=== PATIENT | female | born 1950 | race Caucasian/White ===

== ENCOUNTER 2021-03-03 11:00 | Outpatient (RCR) | payer MEDICARE ==
[~2021-03-03 11:00] MED LIST: ASP325TEC; ASP81TEC PO; ATN25T PO; CIME200T39 PO; CIPR500T78 PO; FAMO20TA13; LISI1TAB8 PO; LISINOPRIL; LISINOPRIL/HCTZ; LORA10TA7 PO; LRT10T; METF-380 PO; METO10TA3 PO; MTC5T; MTF500T PO; NAPR250T34; NTR.4SL; OMEG1CAP51 PO; OXB5T; OXB5T PO; PROAIR; RANI150C11 PO; SOLI5TAB4 PO; TRAM50TA2 PO; TRM50T; [UNRECOGNIZED DRUG - OTHER]; [UNRECOGNIZED DRUG - OTHER]
--- NOTE | 2021-04-10 12:13 | 30 Day Event Recorder ---
30-DAY EVENT RECORDER 30-DAY MOBILE CARDIAC OUTPATIENT TELEMETRY DATE OF PROCEDURE: 03/03/2021-04/02/2021. INDICATION: Paroxysmal atrial fibrillation. PROCEDURE: A 30-day mobile cardiac outpatient telemetry was obtained for a total of 24 days and 14 hours. 44 rhythm strips were presented for review. The study quality is adequate. RESULTS: 1. Baseline sinus rhythm with an average heart rate of 68 bpm, ranging from 50- 160 bpm with intermittent atrial fibrillation with a longest single duration of 1 hour and a total burden of less than 1%. 2. There were occasional, isolated premature supraventricular complexes representing 2% of the total recording time one 8 beat run of paroxysmal atrial tachycardia. 3. There were occasional, isolated premature ventricular complexes representing 3% of the total recording time. 4. There were no pauses exceeding 2 seconds in duration. 5. There were 2 patient triggered events that correlated to sinus rhythm both at a heart rate of 78 bpm with no arrhythmias. IMPRESSION: 1. This is a 30-day mobile cardiac outpatient telemetry that was obtained for total of 24 days and 14 hours. 2. Baseline sinus rhythm with an average heart rate of 68 bpm, ranging from 50- 160 bpm with intermittent atrial fibrillation with the longest single duration of 1 hour and a total burden of less than 1%. 3. There were occasional, isolated premature supraventricular and premature ventricular complexes as well as one 8 beat run of paroxysmal atrial tachycardia. 4. There were 2 patient triggered events that correlated to sinus rhythm both at a heart rate of 78 bpm with no arrhythmias. Certain portions of this document may have been dictated utilizing voice recognition technology. Inherent to this technology, typographical and grammatical errors may exist. As much as I am diligent to identify and correct these mistakes, some errors may remain in the document. RADHA MEJIA JR, MD Apr 10, 2021 12:13
== END 2021-04-28 | disposition home or self-care (01) ==
LOC: CARD 11:00
PROVIDERS: ATTEND Internal Medicine Cardiovascular Disease
DX: I48.0 Paroxysmal atrial fibrillation (principal)

== ENCOUNTER → 2021-04-11 | Outpatient (CLI) | payer MEDICARE ==
--- NOTE | 2021-04-11 13:02 | Diagnostic Imaging Report ---
Indication: Cough PA and lateral chest Heart size and pulmonary vascularity are normal. Lungs are clear. There are no effusions or pneumothoraces. IMPRESSION: Negative chest Dictated by: Dictated on workstation # [id number]
== END ==
LOC: RAD 11:48
PROVIDERS: ATTEND Internal Medicine Cardiovascular Disease
DX: R05.9 Cough, unspecified (principal)
CPT/HCPCS: 71046

== ENCOUNTER → 2021-06-01 | Outpatient (CLI) | payer MEDICARE ==
[~2021-06-01] MED LIST changes: +REGADENOSON 0.4 MG/5 ML SYR (LEXISCAN) IV ONE
[2021-06-01] MEDS: CATHETER FLUSH 10 ML SYR IV PRN ×2 (08:40→09:39)
[2021-06-01 09:35] VITALS: BP 152/68
--- NOTE | 2021-06-01 12:29 | NUCLEAR STRESS TEST ---
REGADENOSON NUCLEAR STRESS Date of procedure: 06/01/2021. Primary care provider: Melissa Berger DO Admitting physician: Charlie Oakley Jr., MD. INDICATION: Paroxysmal atrial fibrillation. BASELINE ELECTROCARDIOGRAM: Sinus rhythm with low voltage in the precordial leads. STRESS TEST PROCEDURE: The patient was administered 0.4 mg of intravenous Reg adenoson. The resting heart rate was 64 bpm and the peak heart rate was 104 bpm. The resting blood pressure was 156/73 mmHg and the minimum blood pressure was 113/70 mmHg. This represents a normal heart rate and a normal blood pressure response to Regadenoson. The test was stopped due to the protocol. There was no chest discomfort during the test. There were no arrhythmias during the test. There were no significant stress induced electrocardiogram changes. NUCLEAR PROCEDURE: The patient was administered 10.9 mCi of intravenous technetium 99m Tetrofosmin at rest for the rest images. The patient was subsequently administered 32.8 mCi of intravenous technetium 99m Tetrofosmin at peak stress for the stress images. Following an appropriate wait after each injection, imaging was obtained. The images were subsequently processed and reformatted in the usual views. Gated imaging was obtained. The image quality was adequate with a mild degree of gastrointestinal and breast attenuation artifact. CT attenuation correction was used as a adjunct to standard imaging. Both the corrected and uncorrected images were reviewed for interpretation. NUCLEAR RESULTS: There was a moderate sized, moderate intensity, predominantly reversible mid to distal anterior and apical defect with a moderate amount of inducible ischemia. There was normal left ventricular chamber size with an end- diastolic volume of 56 mL and an end-systolic volume of 19 mL. There was no evidence of transient ischemic dilatation. The TID ratio was 1. There was normal wall motion in all segments with a calculated ejection fraction of 66%. IMPRESSION: 1. Normal heart rate and blood pressure response to regadenoson. 2. There was no chest discomfort, arrhythmias, or electrocardiogram changes during the test. 3. There was a moderate sized, moderate intensity, predominantly reversible mid to distal anterior and apical defect with a moderate amount of inducible ischemia. 4. There was normal wall motion in all segments with a calculated ejection fraction of 66%. 5. This is an abnormal result indicating moderate risk for possible future coronary ischemic events. Certain portions of this document may have been dictated utilizing voice recognition technology. Inherent to this technology, typographical and gram matical errors may exist. As much as I am diligent to identify and correct these mistakes, some errors may remain in the document. CHARLIE OAKLEY JR, MD Jun 01, 2021 12:29
== END ==
LOC: CARD 08:30
PROVIDERS: ATTEND Internal Medicine Cardiovascular Disease
DX: I48.0 Paroxysmal atrial fibrillation (principal)
CPT/HCPCS: 78452; 93017; A9502

== ENCOUNTER 2021-06-12 14:07 | Inpatient (IN) | payer MEDICARE ==
[~2021-06-12] VITALS: Ht 162.2 cm; Wt 82.2 kg
[~2021-06-12 14:07] MED LIST changes: -REGADENOSON 0.4 MG/5 ML SYR (LEXISCAN) IV ONE
[2021-06-12] MEDS ORDERED: LACTATED RINGERS 1,000 ML IV ONE (14:30)
[2021-06-12] MEDS ORDERED: IOHEXOL 350 MG/ML 100 ML (OMNIPAQUE 350) VIAL IV ONE (14:45)
[2021-06-12] MEDS ORDERED: HOLD METFORMIN - RECEIVED CONTRAST 20 ML VIAL IV SCH (14:45)
[2021-06-12] MEDS ORDERED: NS 100 ML (IVPB) BAG IV ONE (14:45)
[2021-06-12 14:51] LABS: BILIRUBIN,URINE NEGATIVE (NEGATIVE); CLARITY,URINE CLEAR; COLOR,URINE YELLOW; GLUCOSE, URINE (UA) NEGATIVE (NEGATIVE); KETONES,URINE NEGATIVE (NEGATIVE); LEUKOCYTE ESTERASE ,URINE TRACE (NEGATIVE); NITRITE,URINE POSITIVE (NEGATIVE); PROTEIN,URINE 1+ (NEGATIVE)
[2021-06-12 15:10] LABS: MEAN CORPUSCULAR HGB CONC 32 g/dL (32-36)
[2021-06-12 15:12] LABS: BASOPHILS % (AUTO) 0 % (0-10); EOSINOPHILS % (AUTO) 0 % (0-10); HEMATOCRIT 40 % (35-52); HEMOGLOBIN 12.7 g/dL (11.5-16.0); LYMPHOCYTES # (AUTO) 1.3 10^3/uL (1.0-4.0); LYMPHOCYTES % (AUTO) 23 % (12-44); MEAN CORPUSCULAR HEMOGLOBIN 29 pg (25-34); MEAN CORPUSCULAR VOLUME 93 fL (80-99); MEAN PLATELET VOLUME 11.2 fL (9.0-12.2); MONOCYTES # (AUTO) 0.4 10^3/uL (0.0-1.0); MONOCYTES % (AUTO) 8 % (0-12); NEUTROPHILS # (AUTO) 3.8 10^3/uL (1.8-7.8); NEUTROPHILS % (AUTO) 69 % (42-75); PLATELET COUNT 110 10^3/uL (130-400); WHITE BLOOD COUNT 5.6 10^3/uL (4.3-11.0)
[2021-06-12 15:16] LABS: ALBUMIN 3.6 GM/DL (3.2-4.5); CHLORIDE 103 MMOL/L (98-107); POTASSIUM 4.1 MMOL/L (3.6-5.0); SODIUM 139 MMOL/L (135-145)
[2021-06-12 15:17] LABS: CALCIUM 9.1 MG/DL (8.5-10.1)
[2021-06-12 15:19] LABS: GLUCOSE 119 MG/DL (70-105); INR 0.9 (0.8-1.4); PROTHROMBIN TIME PATIENT 12.9 SEC (12.2-14.7); TOTAL PROTEIN 6.5 GM/DL (6.4-8.2)
[2021-06-12 15:20] LABS: CARBON DIOXIDE 23 MMOL/L (21-32)
[2021-06-12 15:21] LABS: BILIRUBIN,TOTAL 0.3 MG/DL (0.1-1.0)
[2021-06-12 15:22] LABS: ALKALINE PHOSPHATASE 47 U/L (40-136); BACTERIA,URINE LARGE /HPF; CREATININE SERUM 0.76 MG/DL (0.60-1.30); GFR ESTIMATED 83
[2021-06-12 15:23] LABS: BUN/CREATININE RATIO 22
[2021-06-12 15:25] LABS: ALANINE AMINOTRANSFERASE 30 U/L (0-55); MAGNESIUM 1.6 MG/DL (1.6-2.4)
[2021-06-12 15:26] LABS: CREATINE KINASE 36 U/L (29-168)
--- NOTE | 2021-06-12 15:32 | Diagnostic Imaging Report ---
INDICATION: Altered mental status. Shortness of air. COMPARISON: 04/11/2021. FINDINGS: Single frontal view of the chest demonstrates normal heart size and pulmonary vascularity. The lungs are well aerated and clear. No large pleural effusion or pneumothorax is seen. The visualized osseous structures show no acute abnormalities. IMPRESSION: 1. No acute cardiopulmonary process. Dictated by: Dictated on workstation # [id number]
[2021-06-12] MEDS ORDERED: cefTRIAXone 1 GM PRE-MIX 50 ML IV STA (15:34)
--- NOTE | 2021-06-12 15:34 | Diagnostic Imaging Report ---
INDICATION: Pelvic pain. FINDINGS: AP view of the pelvis shows no fracture or dislocation. IMPRESSION: Negative pelvis. Dictated by: Dictated on workstation # [id number]
--- NOTE | 2021-06-12 15:34 | ED General ---
General Chief Complaint: General Problems/Pain Stated Complaint: FALL Source of Information: EMS Exam Limitations: Other (PT IS NOT TALKING) History of Present Illness Date Seen by Provider: Jun 12, 2021 Time Seen by Provider: 14:20 Initial Comments PT ARRIVES VIA EMS FROM HOME--PT LIVES ALONE DAUGHTER CALLED EMS PT FELL 1 WEEK AGO AND WAS SEEN AT [facility] AND DX WITH CONCUSSION--HAS LARGE HEMATOMA TO FOREHEAD AND BILATERAL PERIORBITAL BRUISING FROM THAT INJURY PT IS ON XARELTO. DAUGHTER HAS REPORTED THAT PT HAS NOT BEEN EATING OR TALKING SINCE THEN, AND IS GETTING WORSE PT HAS BEEN WALKING WITH A WALKER, BUT THAT HER ABILITY TO AMBULATE IS GETTING MUCH WORSE SINCE SHE FELL LAST WEEK PT HAS NOT FOLLOWED UP WITH ANYONE SINCE THEN. EMS REPORT THAT HOME IS IN DEPLORABLE CONDITION, WITH MULTIPLE HOLES IN THE FLOORS THROUGHOUT THE HOUSE AND MULTIPLE HOLES IN THE [place]. PT IS NOT TALKING OR FOLLOWING COMMANDS ON ARRIVAL, PT IS ONLY MOANING WITH ANY MOVEMENT PT IS DNR/DNI PER DAUGHTER PT HAS HISTORY OF TIA'S, UTI'S, SEIZURES, PARKINSON'S, DIABETES, HTN, PAROXYSMAL ATRIAL FIBRILLATION, LIKELY DEMENTIA PT HAD NUCLEAR STRESS TEST 06/01/21--EF 66%, WITH INDUCIBLE ISCHEMIA PCP: JULITA Allergies and Home Medications Allergies Coded Allergies: codeine (Verified Allergy, Unknown, 08/06/06) iodine (Verified Allergy, Unknown, 08/22/07) meloxicam (Verified Allergy, Unknown, 08/22/07) Patient Home Medication List Home Medication List Reviewed: Yes Amlodipine Besylate (Amlodipine Besylate) 10 Mg Tablet, 10 MG PO DAILY, (Reported) Entered as Reported by: WARREN ROJAS on 06/13/211522 Last Action: Held Atenolol (Atenolol) 50 Mg Tablet, 50 MG PO BID, (Reported) Entered as Reported by: Zoraida Castaneda on 06/13/21 110 Last Action: Held Atorvastatin Calcium (Atorvastatin Calcium) 20 Mg Tablet, 20 MG PO HS, (Reported) Entered as Reported by: Zoraida Castaneda on 06/13/21 1105 Last Action: Held Calcium Carbonate (Calcium) 500 Mg Tablet, 1,500 MG PO HS, (Reported) Entered as Reported by: WARREN ROJAS on 06/13/211522 Last Action: Converted Cholecalciferol (Vitamin D3) (Vitamin D3) 25 Mcg Tablet, 25 MCG PO DAILY, (Reported) Entered as Reported by: WARREN ROJAS on 06/13/211522 Last Action: Continued Cranberry Extract (Cranberry) 250 Mg Capsule, 500 MG PO DAILY, (Reported) Entered as Reported by: WARREN ROJAS on 06/13/211522 Last Action: Converted Cyanocobalamin (Vitamin B-12) (Vitamin B-12) 1,000 Mcg Tablet, 1,000 MCG PO DAILY, (Reported) Entered as Reported by: WARREN ROJAS on 06/13/211522 Last Action: Continued Divalproex Sodium (Divalproex Sodium) 250 Mg Tablet.dr, 250 MG PO BID, (Reported ) Entered as Reported by: WARREN ROJAS on 06/13/211522 Last Action: Continued Folic Acid (Folic Acid) 1 Mg Tablet, 1 MG PO DAILY, (Reported) Entered as Reported by: WARREN ROJAS on 06/13/211522 Last Action: Continued Furosemide (Furosemide) 40 Mg Tablet, 40 MG PO DAILY, (Reported) Entered as Reported by: WARREN ROJAS on 06/13/211522 Last Action: Continued Hydralazine HCl (Hydralazine HCl) 50 Mg Tablet, 50 MG PO BID, (Reported) Entered as Reported by: WARREN ROJAS on 06/13/211522 Last Action: Held Levocetirizine Dihydrochloride (Levocetirizine Dihydrochloride) 5 Mg Tablet, 5 MG PO HS, (Reported) Entered as Reported by: WARREN ROJAS on 06/13/211522 Last Action: Continued Losartan Potassium (Losartan Potassium) 100 Mg Tablet, 100 MG PO DAILY, (Reported) Entered as Reported by: Zoraida Castaneda on 06/13/21 1100 Last Action: Continued Metformin HCl (Metformin HCl) 1,000 Mg Tablet, 1,000 MG PO BID WITH MEALS, (Re ported) Entered as Reported by: WARREN ROJAS on 06/13/211522 Last Action: Held Oxybutynin Chloride (Oxybutynin Chloride) 5 Mg Tablet, 5 MG PO BID, (Reported) Entered as Reported by: Zoraida Castaneda on 06/13/21 1108 Last Action: Continued Pantoprazole Sodium (Pantoprazole Sodium) 40 Mg Tablet.dr, 40 MG PO DAILY, (Reported) Entered as Reported by: WARREN ROJAS on 06/13/211522 Last Action: Continued Rivaroxaban (Xarelto) 20 Mg Tablet, 20 MG PO 1700, (Reported) Entered as Reported by: WARREN ROJAS on 06/13/211522 Last Action: Held Review of Systems Review of Systems Constitutional: other (UNABLE TO OBTAIN) Past Sphovsz-Wkmocr-Efixft Hx Past Medical History Surgeries: Yes Appendectomy, Gallbladder, Hysterectomy, Oophorectomy, Tonsillectomy Respiratory: No Cardiac: Yes Atrial Fibrillation, Hypertension Neurological: Yes (POOR MEMORY) Dementia, Seizure Disorder, TIA Reproductive Disorders: No SHOE DRESSER History: Hysterectomy, Menopausal Genitourinary: Yes (CHRONIC RENAL INSUFFICIENCY) Bladder Infection, Kidney Stones Gastrointestinal: Yes Gastroesophageal Reflux Musculoskeletal: Yes (POOR AMBULATION--USES WALKER) Arthritis Endocrine: Yes Diabetes, Non-Insulin dep HEENT: Yes Cataract Cancer: No Psychosocial: No Integumentary: No Blood Disorders: No Adverse Reaction/Blood Tranf: No Family Medical History Heart disease Kidney disease Physical Exam Vital Signs Capillary Refill : Height, Weight, BMI Height: 5'4.00" Weight: 151lbs. oz. 68.438086iy; BMI Method: General Appearance: Other (PT MOANS WITH ANY MOVEMENT, EYES OPEN SPONTANEOUSLY, BUT DOES NOT MAKE EYE CONTACT AND PT IS NOT TALKING OR FOLLOWING COMMANDS, UNABLE TO LOCALIZE PAIN. ) HEENT: PERRL/EOMI, TMs Normal, Other (LARGE HEMATOMA TO FOREHEAD AND BILATERAL PERIOROBITAL ECCHYMOSIS--APPEARS TO BE SEVERAL DAYS OLD, CONSISTENT WITH REPORTED HISTORY OF FALL 1 WEEK AGO. NO EVIDENCE OF MORE RECENT TRAUMA. ) Neck: Normal Inspection Respiratory: Normal Breath Sounds, No Accessory Muscle Use, No Respiratory Distress Cardiovascular: Regular Rate, Rhythm, No JVD, Systolic Murmur (2/6) Gastrointestinal: Soft Extremity: No Pedal Edema, Other (NO OBVIOUS EXTERNAL EVIDENCE OF TRAUMA. ) Neurologic/Psychiatric: Other (MENTATION NOTED ABOVE. DOES APPEAR TO MOVE ALL EXTREMITIES, BUT IS NOT TALKING OR FOLLOWING ANY COMMANDS, OR MAKING ANY EYE CONTACT,) Skin: Normal Color, Warm/Dry, Ecchymosis ( NOTED ABOVE. ) Progress/Results/Core Measures Suspected Sepsis SIRS Temperature: Pulse: Respiratory Rate: Blood Pressure / Mean: Laboratory Tests 06/12/21 14:30: INR Comment 0.9 Results/Orders Lab Results Laboratory Tests Test 06/12/21 14:30 06/12/21 14:39 06/12/21 16:05 06/12/21 16:14 Range/Units White Blood Count 5.6 4.3-11.0 10^3/uL Red Blood Count 4.32 3.80-5.11 10^6/uL Hemoglobin 12.7 11.5-16.0 g/dL Hematocrit 40 35-52 % Mean Corpuscular Volume 93 80-99 fL Mean Corpuscular Hemoglobin 29 25-34 pg Mean Corpuscular Hemoglobin Concent 32 32-36 g/dL Red Cell Distribution Width 14.2 10.0-14.5 % Platelet Count 110 L 130-400 10^3/uL Mean Platelet Volume 11.2 9.0-12.2 fL Immature Granulocyte % (Auto) 1 % Neutrophils (%) (Auto) 69 42-75 % Lymphocytes (%) (Auto) 23 12-44 % Monocytes (%) (Auto) 8 0-12 % Eosinophils (%) (Auto) 0 0-10 % Basophils (%) (Auto) 0 0-10 % Neutrophils # (Auto) 3.8 1.8-7.8 10^3/uL Lymphocytes # (Auto) 1.3 1.0-4.0 10^3/uL Monocytes # (Auto) 0.4 0.0-1.0 10^3/uL Eosinophils # (Auto) 0.0 0.0-0.3 10^3/uL Basophils # (Auto) 0.0 0.0-0.1 10^3/uL Immature Granulocyte # (Auto) 0.0 0.0-0.1 10^3/uL Percent Immature Platelet Fraction 3.4 0.0-7.6 % Erythrocyte Sedimentation Rate 15 0-30 MM/HR Prothrombin Time 12.9 12.2-14.7 SEC INR Comment 0.9 0.8-1.4 Activated Partial Thromboplast Time 29 24-35 SEC Urine Color YELLOW Urine Clarity CLEAR Urine pH 6.0 5-9 Urine Specific [place] 1.015 L 1.016-1.022 Urine Protein 1+ H NEGATIVE Urine Glucose (UA) NEGATIVE NEGATIVE Urine Ketones NEGATIVE NEGATIVE Urine Nitrite POSITIVE H NEGATIVE Urine Bilirubin NEGATIVE NEGATIVE Urine Urobilinogen 0.2 < = 1.0 MG/DL Urine Leukocyte Esterase TRACE H NEGATIVE Urine RBC (Auto) NEGATIVE NEGATIVE Urine RBC NONE /HPF Urine WBC 2-5 /HPF Urine Crystals NONE /LPF Urine Bacteria LARGE H /HPF Urine Casts NONE /LPF Urine Mucus NEGATIVE /LPF Urine Culture Indicated YES Sodium Level 139 135-145 MMOL/L Potassium Level 4.1 3.6-5.0 MMOL/L Chloride Level 103 98-107 MMOL/L Carbon Dioxide Level 23 21-32 MMOL/L Anion Gap 13 5-14 MMOL/L Blood Urea Nitrogen 17 7-18 MG/DL Creatinine 0.76 0.60-1.30 MG/DL Estimat Glomerular Filtration Rate 83 BUN/Creatinine Ratio 22 Glucose Level 119 H 70-105 MG/DL Calcium Level 9.1 8.5-10.1 MG/DL Corrected Calcium 9.4 8.5-10.1 MG/DL Magnesium Level 1.6 1.6-2.4 MG/DL Total Bilirubin 0.3 0.1-1.0 MG/DL Aspartate Amino Transf (AST/SGOT) 26 5-34 U/L Alanine Aminotransferase (ALT/SGPT) 30 0-55 U/L Alkaline Phosphatase 47 40-136 U/L Total Creatine Kinase 36 29-168 U/L Creatine Kinase MB 0.5 <6.6 NG/ML Myoglobin 47.2 10.0-92.0 NG/ML Troponin I < 0.028 <0.028 NG/ML C-Reactive Protein High Sensitivity 0.99 H 0.00-0.50 MG/DL Total Protein 6.5 6.4-8.2 GM/DL Albumin 3.6 3.2-4.5 GM/DL Procalcitonin 0.03 <0.10 NG/ML TSH [place] Testing 1.70 0.35-4.94 UIU/ML Influenza Type A (RT-PCR) Not Detected Not Detecte Influenza Type B (RT-PCR) Not Detected Not Detecte SARS-CoV-2 RNA (RT-PCR) Detected H Not Detecte B-Type Natriuretic Peptide 111.1 H <100.0 PG/ML Blood Gas Puncture Site RR Blood Gas Patient Temperature 37 Arterial Blood pH 7.43 7.37-7.43 Arterial Blood Partial Pressure CO2 41 35-45 MMHG Arterial Blood Partial Pressure O2 114 H 79-93 MMHG Arterial Blood HCO3 27 23-27 MMOL/L Arterial Blood Total CO2 28.4 21.0-31.0 MMOL/L Arterial Blood Oxygen Saturation 99 94-100 % Arterial Blood Base Excess 3.1 H -2.5-2.5 MMOL/L Tc Test YES-POS Blood Gas Ventilator Setting NO Blood Gas Inspired Oxygen 2 Test 06/12/21 16:28 Range/Units Lab Scanned Report Referred Lab Report [id number] Micro Results Microbiology 06/12/21 Blood Culture - Final, Complete No growth 06/12/21 Urine Culture - Final, Complete Escherichia coli Klebsiella pneumoniae Lactobacillus species My Orders Orders - DORINA ANDRADE DO Ed Iv/Invasive Line Start (06/12/21 14:23) Catheter(Urinary) Insert & Ass 03,15 (06/12/21 14:23) O2 (06/12/21 14:23) Monitor-Rhythm Ecg Trace Only (06/12/21 14:) Arterial Blood Gas (06/12/21 14:) Bnp Betty (06/12/21 14:) Cbc With Automated Diff (06/12/21 14:) Comprehensive Metabolic Panel (06/12/21 14:23) Creatine Kinase (06/12/21 14:) Creatine Kinase Mb (06/12/21 14:23) Hs C Reactive Protein (06/12/21 14:) Magnesium (06/12/21 14:23) Protime With Inr (06/12/21:23) Partial Thromboplastin Time (06/12/21 14:) Thyroid Analyzer (06/12/21 14:) Ua Culture If Indicated (06/12/21:) Erythrocyte Sedimentation Rate (06/12/21 14:23) Myoglobin Serum (06/12/21 14:23) Troponin I Betty (06/12/21 14:23) Ct Head/Face/Cervical Wo (06/12/21 14:23) Chest 1 View, Ap/Pa Only (06/12/21 14:) Pelvis (06/12/21 14:23) Ed Iv/Invasive Line Start (06/12/21 14:23) Lactated Ringers (Lr 1000 Ml Iv Solution (06/12/21 14:30) Procalcitonin (Pct) (06/12/21 14:23) Covid 19 Inhouse Test (06/12/21 14:23) Influenza A And B By Pcr (06/12/21 14:23) Isolation Central Supply Req (06/12/21 14:23) Ct Thoracic/Lumbar Spine Wo (06/12/21 14:28) Iohexol Injection (Omnipaque 350 Mg/Ml 1 (06/12/21 14:45) Received Contrast (Hold Metformin- Contr (06/12/21 14:45) Ns (Ivpb) (Sodium Chloride 0.9% Ivpb Bag (06/12/21 14:45) Ct Chest/Abdomen/Pelvis Wo (06/12/21 14:28) Urine Culture (06/12/21 14:30) Ceftriaxone 1 Gm Pre-Mix (Rocephin 1 Gm (06/12/21 15:34) Ed Admission (Communication) (06/12/21 16:26) Vital Signs/I&O Capillary Refill : Progress Note : Progress Note O2 SAT 92% ON ROOM AIR ON ARRIVAL, UP TO 985 ON 2L/NC NO DETERIORATION IN PT'S CONDITION DURING ER STAY Diagnostic Imaging Comments CXR---PER RADIOLOGIST REPORT AT 1535 FINDINGS: Single frontal view of the chest demonstrates normal heart size and pulmonary vascularity. The lungs are well aerated and clear. No large pleural effusion or pneumothorax is seen. The visualized osseous structures show no acute abnormalities. IMPRESSION: 1. No acute cardiopulmonary process. PELVIS XRAY--PER RADIOLOGIST REPORT AT 1535 FINDINGS: AP view of the pelvis shows no fracture or dislocation. IMPRESSION: Negative pelvis. CT HEAD/MAXILLOFACIALS/CERVICAL SPINE--PER RADIOLOGIST REPORT AT 1558 AND DISCUSSED WITH RADIOLOGIST AT 1602 CT HEAD: The ventricles and cortical sulci are diffusely prominent, consistent with generalized parenchymal volume loss. There is no midline shift or mass effect. No acute intracranial hemorrhage is seen. There is no CT evidence of acute territorial ischemia. There is fluid in the mastoid air cells bilaterally. There is a left frontal scalp hematoma which measures 2 cm wide. There is also a small contusion at the left posterior scalp with a 2.5 cm hematoma as well. No calvarium fracture is seen. CT FACE: There is motion artifact resulting in suboptimal evaluation. The pterygoid plates are intact. The zygomatic arches are intact. The mandible appears intact. No fracture is seen about the maxillary sinuses or in the orbit. The globes appear intact. No postseptal edema is seen. There is mild mucosal thickening in the ethmoid and maxillary sinuses. There is a small fluid level in the sphenoid sinuses. There is a small amount of fluid in the bilateral mastoid air cells. There is marked leftward septal deviation. CT CERVICAL SPINE: There is grade 1 anterolisthesis at C4-C5. There is severe degenerative change at C5-C6 and C6-C7. Vertebral body heights are preserved. There is marked facet arthropathy bilaterally, particularly on the right, with fusion of the right C2 through C4 facets. No fracture is seen. No bony fragments or hyperdense fluid collections are seen in the spinal canal. There are areas of spinal canal and foraminal stenosis. There is some spinal canal stenosis at C5-C6 and C6-C7. IMPRESSION: 1. Scalp contusions with no calvarium fracture seen. No acute intracranial hemorrhage is seen. 2. Mild mucosal thickening and fluid levels in the paranasal sinuses with no fracture identified in the face. 3. Advanced degenerative changes in the cervical spine with no fracture seen. CT THORACIC/LUMBAR SPINE--PER RADIOLOGIST REPORT FINDINGS: THORACIC SPINE: No acute fracture is seen in the thoracic spine. Alignment is normal with no spondylolisthesis. There are moderate multilevel degenerative changes. Vertebral body heights are preserved. No bony fragments or hyperdense fluid collections are seen in the spinal canal. Surrounding soft tissues are unremarkable. There is a large mass in the left adrenal gland, which is partially calcified. Please refer to the concurrent CT of the abdomen. LUMBAR SPINE: There is grade 1 anterolisthesis at L4-L5. There are moderate degenerative changes at L1-L2 and L2-L3. Vertebral body heights are preserved. No acute fracture is seen. There is marked facet arthropathy at the lower lumbar spine. No bony fragments or hyperdense fluid collections are seen in the spinal canal. Surrounding soft tissues demonstrate no acute abnormality. IMPRESSION: 1. Degenerative changes in the thoracic and lumbar spine with no acute osseous abnormality seen. 2. Left adrenal gland mass, please refer to concurrent CT of the abdomen. CT CHEST/ABDOMEN/PELVIS--PER RADIOLOGIST REPORT FINDINGS: CHEST: Sternum, manubrium, and diaphragm are intact. No rib fracture deformity. No pneumothorax or hemothorax. There is a small sub-solid nodule of 7 mm in the right upper lobe. Some peripheral ground-glass infiltrates in the infrahilar right lower lobe as well as in the lingula and left lower lobes. Correlate for atypical infectious etiology including viral pathogens. There is no pleural or pericardial hemorrhage. There is no pneumothorax. No findings of chest wall hematoma. No lymphadenopathy. The aorta nonaneurysmal. ABDOMEN AND PELVIS: There is no abdominopelvic free fluid. There were no findings of a hemoperitoneum. No free air. No focal mesenteric or bowel wall hematoma. There are degenerative changes to the pelvis and hips as well as lumbar spine, but no fracture or acute osseous injury found. The unopacified liver, spleen, and pancreas are unremarkable. There is a large mass in the left adrenal measuring 3.8 x 3.9 cm with extensive punctate and peripheral calcifications. This is unrelated to acute trauma but is indeterminate, benign versus malignant. The right adrenal is negative, and there is no abdominopelvic mesenteric or retroperitoneal lymphadenopathy. Urinary bladder is catheterized and appeared nonacute. No bowel, biliary, or urinary tract obstruction. No lymphadenopathy. No ascites. No retroperitoneal hemorrhage. IMPRESSION: 1. No acute or post-traumatic abnormality in the chest, abdomen, or pelvis found. 2. Chest shows scattered pulmonary ground-glass and nodular infiltrates, presumed infectious disease. No demonstrated chest fracture, hemothorax, or pneumothorax. 3. The abdomen and pelvis showed no evidence for hemorrhage, viscus perforation, or obstruction. Large left adrenal mass, circumscribed, with extensive chronic appearing calcifications is of uncertain etiology; correlate for endocrinopathy. If no prior remote studies are available to confirm its long-term stability, tissue sampling for metabolic PET/CT may be of benefit for further evaluation. Reviewed: Reviewed by Me, Discussed w/Radiologist Departure Communication (Admissions) 1609/162--SPOKE WITH DR. JONES, ACCEPTS PT FOR ADMIT. SHE WILL DO ADMIT ORDERS. Impression Primary Impression: Status post fall Additional Impressions: COVID-19 virus infection Urinary tract infection Altered mental status Recent head injury XARELTO THERAPY HISTORY OF INTERMITTENT ATRIAL FIBRILLATION HTN (hypertension) Dementia POOR LIVING CONDITIONS Diabetes mellitus Disposition: ADMITTED INPATIENT Condition: Stable Admissions Decision to Admit Reason: Admit from ER (General) Decision to Admit/Date: Jun 12, 2021 Time/Decision to Admit Time: 16:20 Departure-Patient Inst. Referrals: ELIO SMITH DO (PCP/Family) Primary Care Physician DORINA ANDRADE DO Jun 12, 2021 15:34
[2021-06-12 15:39] LABS: CREATINE KINASE MB 0.5 NG/ML (<6.6)
[2021-06-12 15:42] LABS: ERYTHROCYTE SEDIMENTATION RATE 15 MM/HR (0-30)
--- NOTE | 2021-06-12 15:42 | Diagnostic Imaging Report ---
PROCEDURE: CT chest, abdomen, and pelvis without contrast. TECHNIQUE: Multiple contiguous axial images were obtained through the chest, abdomen, and pelvis without the use of intravenous contrast. Auto Exposure Controls were utilized during the CT exam to meet ALARA standards for radiation dose reduction. INDICATION: Fall with pain. COMPARISON: No relevant comparison. FINDINGS: CHEST: Sternum, manubrium, and diaphragm are intact. No rib fracture deformity. No pneumothorax or hemothorax. There is a small sub-solid nodule of 7 mm in the right upper lobe. Some peripheral ground-glass infiltrates in the infrahilar right lower lobe as well as in the lingula and left lower lobes. Correlate for atypical infectious etiology including viral pathogens. There is no pleural or pericardial hemorrhage. There is no pneumothorax. No findings of chest wall hematoma. No lymphadenopathy. The aorta nonaneurysmal. ABDOMEN AND PELVIS: There is no abdominopelvic free fluid. There were no findings of a hemoperitoneum. No free air. No focal mesenteric or bowel wall hematoma. There are degenerative changes to the pelvis and hips as well as lumbar spine, but no fracture or acute osseous injury found. The unopacified liver, spleen, and pancreas are unremarkable. There is a large mass in the left adrenal measuring 3.8 x 3.9 cm with extensive punctate and peripheral calcifications. This is unrelated to acute trauma but is indeterminate, benign versus malignant. The right adrenal is negative, and there is no abdominopelvic mesenteric or retroperitoneal lymphadenopathy. Urinary bladder is catheterized and appeared nonacute. No bowel, biliary, or urinary tract obstruction. No lymphadenopathy. No ascites. No retroperitoneal hemorrhage. IMPRESSION: 1. No acute or post-traumatic abnormality in the chest, abdomen, or pelvis found. 2. Chest shows scattered pulmonary ground-glass and nodular infiltrates, presumed infectious disease. No demonstrated chest fracture, hemothorax, or pneumothorax. 3. The abdomen and pelvis showed no evidence for hemorrhage, viscus perforation, or obstruction. Large left adrenal mass, circumscribed, with extensive chronic appearing calcifications is of uncertain etiology; correlate for endocrinopathy. If no prior remote studies are available to confirm its long-term stability, tissue sampling for metabolic PET/CT may be of benefit for further evaluation. Dictated by: Dictated on workstation # [id number]
--- NOTE | 2021-06-12 15:56 | Diagnostic Imaging Report ---
PROCEDURE: CT head, face, and cervical spine without contrast. TECHNIQUE: Multiple contiguous axial images were obtained through the head, neck, and facial bones without the use of intravenous contrast. Sagittal and coronal reformations through the cervical spine and facial bones were also performed. Auto Exposure Controls were utilized during the CT exam to meet ALARA standards for radiation dose reduction. INDICATION: Fall. Head, face and neck pain. Trauma. COMPARISON: CT head from 07/06/2013. FINDINGS: CT HEAD: The ventricles and cortical sulci are diffusely prominent, consistent with generalized parenchymal volume loss. There is no midline shift or mass effect. No acute intracranial hemorrhage is seen. There is no CT evidence of acute territorial ischemia. There is fluid in the mastoid air cells bilaterally. There is a left frontal scalp hematoma which measures 2 cm wide. There is also a small contusion at the left posterior scalp with a 2.5 cm hematoma as well. No calvarium fracture is seen. CT FACE: There is motion artifact resulting in suboptimal evaluation. The pterygoid plates are intact. The zygomatic arches are intact. The mandible appears intact. No fracture is seen about the maxillary sinuses or in the orbit. The globes appear intact. No postseptal edema is seen. There is mild mucosal thickening in the ethmoid and maxillary sinuses. There is a small fluid level in the sphenoid sinuses. There is a small amount of fluid in the bilateral mastoid air cells. There is marked leftward septal deviation. CT CERVICAL SPINE: There is grade 1 anterolisthesis at C4-C5. There is severe degenerative change at C5-C6 and C6-C7. Vertebral body heights are preserved. There is marked facet arthropathy bilaterally, particularly on the right, with fusion of the right C2 through C4 facets. No fracture is seen. No bony fragments or hyperdense fluid collections are seen in the spinal canal. There are areas of spinal canal and foraminal stenosis. There is some spinal canal stenosis at C5-C6 and C6-C7. IMPRESSION: 1. Scalp contusions with no calvarium fracture seen. No acute intracranial hemorrhage is seen. 2. Mild mucosal thickening and fluid levels in the paranasal sinuses with no fracture identified in the face. 3. Advanced degenerative changes in the cervical spine with no fracture seen. Dictated by: Dictated on workstation # [id number]
--- NOTE | 2021-06-12 16:00 | Diagnostic Imaging Report ---
PROCEDURE: CT thoracic and lumbar spine without contrast. TECHNIQUE: Multiple contiguous axial images were obtained through the thoracic and lumbar spine without the use of intravenous contrast. Sagittal and coronal reformations were then performed. All CT scans use one or more of the following dose optimizing techniques: Automated exposure control, MA and/or KvP adjustment based on a patient size and exam type, or iterative reconstruction. INDICATION: Fall, pain in the back. COMPARISON: None. FINDINGS: THORACIC SPINE: No acute fracture is seen in the thoracic spine. Alignment is normal with no spondylolisthesis. There are moderate multilevel degenerative changes. Vertebral body heights are preserved. No bony fragments or hyperdense fluid collections are seen in the spinal canal. Surrounding soft tissues are unremarkable. There is a large mass in the left adrenal gland, which is partially calcified. Please refer to the concurrent CT of the abdomen. LUMBAR SPINE: There is grade 1 anterolisthesis at L4-L5. There are moderate degenerative changes at L1-L2 and L2-L3. Vertebral body heights are preserved. No acute fracture is seen. There is marked facet arthropathy at the lower lumbar spine. No bony fragments or hyperdense fluid collections are seen in the spinal canal. Surrounding soft tissues demonstrate no acute abnormality. IMPRESSION: 1. Degenerative changes in the thoracic and lumbar spine with no acute osseous abnormality seen. 2. Left adrenal gland mass, please refer to concurrent CT of the abdomen. Dictated by: Dictated on workstation # [id number]
[2021-06-12 16:57] LABS: ABG BASE EXCESS 3.1 MMOL/L (-2.5-2.5); ABG OXYGEN SATURATION 99 % (94-100); ABG PCO2 41 MMHG (35-45); ABG PH 7.43 (7.37-7.43); ABG PO2 114 MMHG (79-93); ABG TCO2 28.4 MMOL/L (21.0-31.0)
[2021-06-12 16:58] LABS: ALLENS TEST YES-POS; INSPIRED O2 2; PATIENT TEMP 37; VENTILATOR NO
[2021-06-12 19:00] VITALS: BP 160/72
[2021-06-12] MEDS ORDERED: ONDANSETRON 4 MG (ZOFRAN) ORAL DISSOLVE TAB PO PRN (19:15)
[2021-06-12] MEDS ORDERED: MILK OF MAGNESIA 400 MG/5 ML 30 ML UDC PO PRN (19:15)
[2021-06-12] MEDS ORDERED: BISACODYL 10 MG SUPP (DULCOLAX) PR PRN (19:15)
[2021-06-12] MEDS ORDERED: ANTACID SUSP 30 ML UDC (MYLANTA) PO PRN (19:15)
[2021-06-12] MEDS ORDERED: MELATONIN 3 MG TABLET PO PRN (19:15)
[2021-06-12] MEDS ORDERED: ONDANSETRON 4 MG/2 ML (SDV) Z0FRAN IV PRN (19:15)
[2021-06-12] MEDS ORDERED: diphenhydrAMINE 25 MG TAB (BENADRYL) PO PRN (19:15)
[2021-06-12] MEDS ORDERED: diphenhydrAMINE 50 MG/ML INJ (BENADRYL) IVP PRN (19:15)
[2021-06-12] MEDS ORDERED: CALCIUM CARBONATE 500 MG (TUMS) TAB.CHEW PO PRN (19:15)
[2021-06-12] MEDS ORDERED: morphine INJ 4 MG/ML 1 ML (VIAL/SYRINGE) IV PRN (19:15)
[2021-06-12] MEDS ORDERED: PATIENT MAY USE OWN MEDS, ALL PO SCH (19:15)
[2021-06-12] MEDS ORDERED: polyethylene glycoL POWDER 17 GM (MIRALAX) PACK PO PRN (19:15)
[2021-06-12] MEDS ORDERED: LACTULOSE SYRUP 10GM/15ML (ENULOSE) 30ML UDC PO PRN (19:15)
[2021-06-12] MEDS: NS IV 1000 ML 1,000 ML IV SCH (22:14)
[2021-06-12] MEDS: inSUlin ASPART (NovoLOG) 1 UNIT/0.01 ML (CHARGE PER UNIT) SC SCH (22:18)
[2021-06-12 22:23] VITALS: BP 160/72
[2021-06-12] MEDS: DOCUSATE SODIUM 100 MG (COLACE) CAP PO SCH (22:33)
[2021-06-12] MEDS: SENNOSIDES 8.6 MG (SENOKOT) TAB PO SCH (22:33)
[2021-06-12 23:09] VITALS: BP 170/68
[2021-06-13 04:31] VITALS: BP 199/83
[2021-06-13] MEDS ORDERED: cloNIDine 0.1 MG (CATAPRES) TAB PO PRN (04:45)
[2021-06-13] MEDS: inSUlin ASPART (NovoLOG) 1 UNIT/0.01 ML (CHARGE PER UNIT) SC SCH ×4 (05:31→22:11)
[2021-06-13] MEDS: hydrALAZINE (APRESOLINE) 25 MG TAB PO SCH ×4 (05:32→19:57)
[2021-06-13] MEDS: lisINopril 20 MG (PRINIVIL) TABLET PO SCH ×2 (05:32→08:33)
[2021-06-13] MEDS: amLODIPine 5 MG (NORVASC) TAB PO SCH ×2 (05:32→08:32)
[2021-06-13] MEDS: NS IV 1000 ML 1,000 ML IV SCH ×2 (05:33→18:00)
--- NOTE | 2021-06-13 06:40 | History & Physical-Hospitalist ---
History of Present Illness HPI/Chief Complaint CC: Altered mental status HPI: 71 yr old [facility] clinic pt of [facility] and Dr. Oakley cardiology who presents to the ER with altered mental status and unable to really even verbalize. She was diagnosed with Covid-19 pneumonia, placed on appropriate medication, and Dr. Oakley will see her in consultation. She does have a significant murmur. She is very lethargic and doesn't open her eyes during my exam. Source: RN/MD, EMS notes reviewed, old records Exam Limitations: clinical condition Date Seen 06/13/21 Time Seen by a Provider: 10:00 Attending Physician Elmira Montiel DO PCP Melissa Berger DO Referring Physician Date of Admission Jun 12, 2021 at 16:28 Home Medications & Allergies Home Medications Reviewed patient Home Medication Reconciliation performed by pharmacy medication reconciliations avionics test technician and/or nursing. Patients Allergies have been reviewed. Allergies Allergies Coded Allergies codeine (Verified Allergy, Unknown, 08/06/06) iodine (Verified Allergy, Unknown, 08/22/07) meloxicam (Verified Allergy, Unknown, 08/22/07) Past Cxvlwwl-Ijqfrk-Yhqobu Hx Patient Social History Marrital Status: single Employed/Student: retired Tobacco Use?: No Smoking Status: Unknown if Ever Smoked Substance use?: No Alcohol Use?: No Pt feels they are or have been: Unable to obtain Current Status Advance Directives: No Communicates: Does Not Communicate Primary Language: Cymraes Preferred Spoken Language: Cymraes Is interpretation needed?: Unable to obtain Implanted or Applied Medical D: None Past Medical History High Cholesterol, Hypertension, Valvular Heart Disease Dementia, Neuropathy Kidney Stones Gastroesophageal Reflux Arthritis Diabetes, Non-Insulin dep Cataract Adverse Reaction/Blood Tranf: No Family Medical History Heart disease Kidney disease Review of Systems ROS-Unable to Obtain: Lethargic Constitutional: see HPI, malaise, weakness Physical Exam Physical Exam Vital Signs Vital Signs - First Documented 06/12/21 14:17 Temp 37.5 Pulse 84 Resp 15 B/P (MAP) 174/79 (110) Pulse Ox 98 O2 Delivery Nasal Cannula O2 Flow Rate 2.00 Capillary Refill : Height, Weight, BMI Height: 5'4.00" Weight: 151lbs. oz. 68.862221cu; 31.24 BMI Method: General Appearance: No Apparent Distress, Chronically ill Respiratory: No Accessory Muscle Use, No Respiratory Distress, Decreased Breath Sounds Cardiovascular: Regular Rate, Rhythm, Systolic Murmur Results Results/Procedures Labs Laboratory Tests 06/12/21 14:30 06/13/21 08:27 Patient resulted labs reviewed. Assessment/Plan Admission Diagnosis Assessment: Acute encephalopathy COVID-19 UTI Diabetes Dementia Cardiac murmur Hypertension severe Hyperlipidemia Insomnia Plan: Supportive care Monitor oxygen Cardiology consultation Admission Status: Inpatient Order (span 2 midnights) Reason for Inpatient Admission: COVID-19 with encephalopathy Diagnosis/Problems Diagnosis/Problems (1) Acute encephalopathy (2) Murmur (3) Malignant hypertension (4) Dementia (5) COVID-19 virus infection Status: Acute ELMIRA MONTIEL DO Jun 13, 2021 06:39
[2021-06-13 07:37] VITALS: BP 134/69
[2021-06-13] MEDS: SENNOSIDES 8.6 MG (SENOKOT) TAB PO SCH ×2 (08:33→19:34)
[2021-06-13] MEDS: DOCUSATE SODIUM 100 MG (COLACE) CAP PO SCH ×2 (08:33→21:25)
[2021-06-13 08:40] LABS: EOSINOPHILS % (AUTO) 0 % (0-10); HEMOGLOBIN 12.4 g/dL (11.5-16.0)
[2021-06-13 08:42] LABS: BASOPHILS % (AUTO) 1 % (0-10); HEMATOCRIT 39 % (35-52); LYMPHOCYTES # (AUTO) 0.8 10^3/uL (1.0-4.0); LYMPHOCYTES % (AUTO) 20 % (12-44); MEAN CORPUSCULAR HEMOGLOBIN 29 pg (25-34); MEAN CORPUSCULAR HGB CONC 32 g/dL (32-36); MEAN CORPUSCULAR VOLUME 91 fL (80-99); MEAN PLATELET VOLUME 11.1 fL (9.0-12.2); MONOCYTES # (AUTO) 0.4 10^3/uL (0.0-1.0); MONOCYTES % (AUTO) 10 % (0-12); NEUTROPHILS # (AUTO) 2.7 10^3/uL (1.8-7.8); NEUTROPHILS % (AUTO) 70 % (42-75); PLATELET COUNT 123 10^3/uL (130-400); WHITE BLOOD COUNT 3.9 10^3/uL (4.3-11.0)
[2021-06-13 08:48] LABS: ALBUMIN 3.2 GM/DL (3.2-4.5); POTASSIUM 3.7 MMOL/L (3.6-5.0)
[2021-06-13 08:49] LABS: CALCIUM 8.6 MG/DL (8.5-10.1)
[2021-06-13 08:50] LABS: TOTAL PROTEIN 5.9 GM/DL (6.4-8.2)
[2021-06-13 08:52] LABS: BILIRUBIN,TOTAL 0.3 MG/DL (0.1-1.0)
[2021-06-13 08:54] LABS: CREATININE SERUM 0.7 MG/DL (0.60-1.30)
--- NOTE | 2021-06-13 10:39 | Physical Therapy Progress Note ---
Therapy Progress Note Order for PT evaluation received but it cannot be performed. Patient is non-responsive. She doesn't appear to be asleep because when you touch her she flinches and says ouch. She will not open her eyes or talk. Attempted to perform PROM on legs but it seems to be painful and she will not participate. Will try back tomorrow. CALIN CASTORENA PT Jun 13, 2021 10:39
[2021-06-13] MEDS ORDERED: FLU QUAD HIGH DOSE 240 MCG/0.7 ML 2021-22 (FLUZONE) IM ONE (11:00)
[2021-06-13] MEDS ORDERED: DIVA250T2 PO (11:00)
[2021-06-13] MEDS ORDERED: LOSA100T57 PO (11:00)
[2021-06-13] MEDS ORDERED: ATEN50TA PO (11:02)
[2021-06-13] MEDS ORDERED: ATOR20TA66 PO (11:05)
[2021-06-13 11:07] VITALS: BP 126/79
[2021-06-13] MEDS ORDERED: OXYB5TAB13 PO (11:08)
[2021-06-13] MEDS: cefTRIAXone 1 GM PRE-MIX 50 ML IV SCH (14:25)
--- NOTE | 2021-06-13 14:35 | Occ Therapy Progress Note ---
Therapy Progress Note OT orders received and chart reviewed. OT attempted evaluation, but pt is non-responsive. Pt's eyes are open upon OT entry, but will not answer questions or follow instruction. OT placed finger in pt's palm in attempt to get pt to squeeze, and OT attempted PROM but pt winced with touch. Pt unable to participate in skilled therapy at this time, OT will attempt tomorrow. MIMI GATES OT Jun 13, 2021 14:35
[2021-06-13] MEDS ORDERED: FOLI1TAB33 PO (15:23)
[2021-06-13] MEDS ORDERED: LEVO5TAB12 PO (15:23)
[2021-06-13] MEDS ORDERED: HYDR-3924 PO (15:23)
[2021-06-13] MEDS ORDERED: DIVA-74 PO (15:23)
[2021-06-13] MEDS ORDERED: AMLO-251 PO (15:23)
[2021-06-13] MEDS ORDERED: PANT40TA52 PO (15:23)
[2021-06-13] MEDS ORDERED: CALC-823 PO (15:23)
[2021-06-13] MEDS ORDERED: RIVA20TA PO (15:23)
[2021-06-13] MEDS ORDERED: CYAN-41 PO (15:23)
[2021-06-13] MEDS ORDERED: CRAN250C2 PO (15:23)
[2021-06-13] MEDS ORDERED: FURO40TA4 PO (15:23)
[2021-06-13] MEDS ORDERED: METF-399 PO (15:23)
[2021-06-13] MEDS ORDERED: CHOL10004 PO (15:23)
[2021-06-13 16:19] VITALS: BP 162/76
[2021-06-13] MEDS: RIVAROXABAN 20 MG TABLET (XARELTO) PO SCH (18:00)
--- NOTE | 2021-06-13 18:29 | Consultation-Cardiology ---
HPI-Cardiology Cardiology Consultation: Date of Consultation 06/13/2021 Date of Admission 06/12/2021 Attending Physician Elmira Montiel DO Admitting Physician Melissa Berger DO Consulting Physician RADHA MEJIA JR, MD HPI: Time Seen by a Provider: 18:23 Chief Complaint: Reason for consultation: Heart murmur. I had the pleasure of seeing Taya on the medical/surgical unit at [facility] in [place], [place] this evening. She is presently in the Covid unit. I know her from the outpatient setting. Review of Systems-Cardiology Review of Systems Other comments Not obtainable due to altered mental status. YSK-Ettpla-Iefyet Hx Patient Social History Former smoker/When Quit: Jul 07, 1999 Have you traveled recently?: Unable to obtain Alcohol Use?: No Pt feels they are or have been: Unable to obtain Past Medical History PMH As described under Assessment. Family Medical History Family History: Heart disease Kidney disease Allergies and Home Medications Allergies Coded Allergies: codeine (Verified Allergy, Unknown, 08/06/06) iodine (Verified Allergy, Unknown, 08/22/07) meloxicam (Verified Allergy, Unknown, 08/22/07) Patient Home Medication List Home Medication List Reviewed: Yes Amlodipine Besylate (Amlodipine Besylate) 10 Mg Tablet, 10 MG PO DAILY, (Reported) Entered as Reported by: WARREN ROJAS on 06/13/211522 Last Action: Reviewed Atenolol (Atenolol) 50 Mg Tablet, 50 MG PO BID, (Reported) Entered as Reported by: Zoraida Castaneda on 06/13/211101 Last Action: Reviewed Atorvastatin Calcium (Atorvastatin Calcium) 20 Mg Tablet, 20 MG PO HS, (R eported) Entered as Reported by: Zoraida Castaneda on 06/13/211104 Last Action: Reviewed Calcium Carbonate (Calcium) 500 Mg Tablet, 1,500 MG PO HS, (Reported) Entered as Reported by: WARREN ROJAS on 06/13/211522 Last Action: Reviewed Cholecalciferol (Vitamin D3) (Vitamin D3) 25 Mcg Tablet, 25 MCG PO DAILY, (Reported) Entered as Reported by: WARREN ROJAS on 06/13/211522 Last Action: Reviewed Cranberry Extract (Cranberry) 250 Mg Capsule, 500 MG PO DAILY, (Reported) Entered as Reported by: WARREN ROJAS on 06/13/211522 Last Action: Reviewed Cyanocobalamin (Vitamin B-12) (Vitamin B-12) 1,000 Mcg Tablet, 1,000 MCG PO DAILY, (Reported) Entered as Reported by: WARREN ROJAS on 06/13/211522 Last Action: Reviewed Divalproex Sodium (Divalproex Sodium) 250 Mg Tablet.dr, 250 MG PO BID, (Reported) Entered as Reported by: WARREN ROJAS on 06/13/211522 Last Action: Reviewed Folic Acid (Folic Acid) 1 Mg Tablet, 1 MG PO DAILY, (Reported) Entered as Reported by: WARREN ROJAS on 06/13/211522 Last Action: Reviewed Furosemide (Furosemide) 40 Mg Tablet, 40 MG PO DAILY, (Reported) Entered as Reported by: WARREN ROJAS on 06/13/211522 Last Action: Reviewed Hydralazine HCl (Hydralazine HCl) 50 Mg Tablet, 50 MG PO BID, (Reported) Entered as Reported by: WARREN ROJAS on 06/13/211522 Last Action: Reviewed Levocetirizine Dihydrochloride (Levocetirizine Dihydrochloride) 5 Mg Tablet, 5 MG PO HS, (Reported) Entered as Reported by: WARREN ROJAS on 06/13/211522 Last Action: Reviewed Losartan Potassium (Losartan Potassium) 100 Mg Tablet, 100 MG PO DAILY, (Reported) Entered as Reported by: Zoraida Castaneda on 06/13/21 1100 Last Action: Reviewed Metformin HCl (Metformin HCl) 1,000 Mg Tablet, 1,000 MG PO BID WITH MEALS, (Reported) Entered as Reported by: WARREN ROJAS on 06/13/211522 Last Action: Reviewed Oxybutynin Chloride (Oxybutynin Chloride) 5 Mg Tablet, 5 MG PO BID, (Reported) Entered as Reported by: Zoraida Castaneda on 06/13/21 1108 Last Action: Reviewed Pantoprazole Sodium (Pantoprazole Sodium) 40 Mg Tablet.dr, 40 MG PO DAILY, (Reported) Entered as Reported by: WARREN ROJAS on 06/13/211522 Last Action: Reviewed Rivaroxaban (Xarelto) 20 Mg Tablet, 20 MG PO 1700, (Reported) Entered as Reported by: WARREN ROJAS on 06/13/21 1523 Last Action: Reviewed Discontinued Medications Aspirin (Aspirin Ec 81 Mg) 81 Mg Tabec, 81 MG PO DAILY, (Reported) Discontinued Reason: No Longer Taking Entered as Reported by: BEE TRAYLOR on 07/06/13 1504 Last Action: Discontinued Atenolol (Tenormin) 25 Mg Tablet, 25 MG PO BID, (Reported) Discontinued Reason: Duplicate Order Entered as Reported by: RADHA MARINELLI on 08/22/07 1448 Last Action: Discontinued Ciprofloxacin HCl (Cipro) 500 Mg Tablet, 500 MG PO BID Discontinued Reason: No Longer Taking Prescribed by: ERWIN BIGGS on 07/10/13 1006 Last Action: Discontinued Divalproex Sodium (Depakote) 250 Mg Tablet.dr, 250 MG PO BID, (Reported) Discontinued Reason: Duplicate Order Entered as Reported by: Zoraida Castaneda on 06/13/21 1100 Last Action: Discontinued Lisinopril/Hydrochlorothiazide (Lisinopril-Hctz 20-12.5 Tablet) 1 Tab Tablet, 2 TAB PO HS, (Reported) Discontinued Reason: No Longer Taking Entered as Reported by: BEE TRAYLOR on 07/06/13 1509 Last Action: Discontinued Loratadine (Loratadine) 10 Mg Tablet, 10 MG PO DAILY, (Reported) Discontinued Reason: No Longer Taking Entered as Reported by: BEE TRAYLOR on 07/06/13 1504 Last Action: Discontinued Metformin Hcl (Metformin 500 Mg) 500 Mg Tab, 500 MG PO BID@,17 Discontinued Reason: Duplicate Order Prescribed by: ERWIN BIGGS on 07/10/13 0953 Last Action: Discontinued Mccune-3 Fatty Acids/Fish Oil (Fish Oil 1,000 Mg Softgel) 1 Each Capsule, 1,000 MG PO DAILY, (Reported) Discontinued Reason: No Longer Taking Entered as Reported by: BEE TRAYLOR on 07/06/13 1504 Last Action: Discontinued Ranitidine Hcl (Ranitidine Hcl) 150 Mg Capsule, 150 MG PO DAILY, (Reported) Discontinued Reason: No Longer Taking Entered as Reported by: MIA RUIZ on 07/06/13 1713 Last Action: Discontinued Solifenacin Succinate (Vesicare) 5 Mg Tablet, 5 MG PO DAILY Discontinued Reason: No Longer Taking Prescribed by: ERWIN BIGGS on 07/10/13 6668 Last Action: Discontinued Tramadol Hcl (Tramadol Hcl) 50 Mg Tablet, 50 MG PO Q4H PRN for PAIN, (Reported) Discontinued Reason: No Longer Taking Entered as Reported by: BEE TRAYLOR on 07/06/13 1509 Last Action: Discontinued Exam Vital Signs Vital Signs Date Time Temp Pulse Resp B/P (MAP) Pulse Ox O2 Delivery O2 Flow Rate FiO2 06/13/21 16:19 37.2 101 20 162/76 (104) 93 Nasal Cannula 2.00 Physical Exam General: Awakes to touch but is not following commands or answering questions. No acute distress. Well nourished and appears stated age. She has left periorbital ecchymoses and some other abrasions on her face and head. Eye: Extraocular movements are intact. Conjunctivae are clear. There are no xanthelasma. HENT: Normocephalic. As above in regards to injuries suffered in fall. Carotid pulsations 2/2 without bruits. Neck: Jugular venous pressure does not appear elevated. No thyromegaly appreciated. Respiratory: Lungs are clear to auscultation. Respirations are non-labored. Breath sounds are equal. Symmetrical chest wall expansion. Cardiovascular: Tachycardia with irregular rhythm. 2/6 systolic ejection murmur. No gallop. Point of maximal impulse is not appear displaced. Good pulses equal in all extremities. 1+ bilateral pretibial edema. Gastrointestinal: Soft. Normal bowel sounds. Skin: Skin turgor is normal. There is no pallor. Musculoskeletal: No obvious joint deformity. Neurologic: Responds to light touch but not answering questions. Cranial nerves 3-12 appear grossly intact. Not following commands to cooperate with exam for muscle strength. Psychiatric: Responsive only to light touch but not answering questions and just saying ouch. Labs Laboratory Tests Test 06/12/21 22:17 06/13/21 05:28 06/13/21 08:27 06/13/21 11:11 Range/Units Glucometer 149 H 120 H 160 H 70-110 MG/DL White Blood Count 3.9 L 4.3-11.0 10^3/uL Red Blood Count 4.31 3.80-5.11 10^6/uL Hemoglobin 12.4 11.5-16.0 g/dL Hematocrit 39 35-52 % Mean Corpuscular Volume 91 80-99 fL Mean Corpuscular Hemoglobin 29 25-34 pg Mean Corpuscular Hemoglobin Concent 32 32-36 g/dL Red Cell Distribution Width 14.3 10.0-14.5 % Platelet Count 123 L 130-400 10^3/uL Mean Platelet Volume 11.1 9.0-12.2 fL Immature Granulocyte % (Auto) 1 % Neutrophils (%) (Auto) 70 42-75 % Lymphocytes (%) (Auto) 20 12-44 % Monocytes (%) (Auto) 10 0-12 % Eosinophils (%) (Auto) 0 0-10 % Basophils (%) (Auto) 1 0-10 % Neutrophils # (Auto) 2.7 1.8-7.8 10^3/uL Lymphocytes # (Auto) 0.8 L 1.0-4.0 10^3/uL Monocytes # (Auto) 0.4 0.0-1.0 10^3/uL Eosinophils # (Auto) 0.0 0.0-0.3 10^3/uL Basophils # (Auto) 0.0 0.0-0.1 10^3/uL Immature Granulocyte # (Auto) 0.0 0.0-0.1 10^3/uL Percent Immature Platelet Fraction 3.6 0.0-7.6 % Sodium Level 138 135-145 MMOL/L Potassium Level 3.7 3.6-5.0 MMOL/L Chloride Level 105 98-107 MMOL/L Carbon Dioxide Level 23 21-32 MMOL/L Anion Gap 10 5-14 MMOL/L Blood Urea Nitrogen 16 7-18 MG/DL Creatinine 0.70 0.60-1.30 MG/DL Estimat Glomerular Filtration Rate 91 BUN/Creatinine Ratio 23 Glucose Level 142 H 70-105 MG/DL Calcium Level 8.6 8.5-10.1 MG/DL Corrected Calcium 9.2 8.5-10.1 MG/DL Total Bilirubin 0.3 0.1-1.0 MG/DL Aspartate Amino Transf (AST/SGOT) 26 5-34 U/L Alanine Aminotransferase (ALT/SGPT) 30 0-55 U/L Alkaline Phosphatase 46 40-136 U/L Total Protein 5.9 L 6.4-8.2 GM/DL Albumin 3.2 3.2-4.5 GM/DL Test 06/13/21 16:26 Range/Units Glucometer 145 H 70-110 MG/DL Radiology LABS (05/15/2020): Sodium 144. Potassium 4.1. Glucose 121. Creatinine 1.03. GFR 53. PA AND LATERAL CHEST (04/11/2021): 1. Negative chest. 30-DAY MOBILE CARDIAC OUTPATIENT TELEMETRY (03/03/2021-04/02/2021): 1. This is a 30-day mobile cardiac outpatient telemetry that was obtained for total of 24 days and 14 hours. 2. Baseline sinus rhythm with an average heart rate of 68 bpm, ranging from 50- 160 bpm with intermittent atrial fibrillation with the longest single duration of 1 hour and a total burden of less than 1%. 3. There were occasional, isolated premature supraventricular and premature ventricular complexes as well as one 8 beat run of paroxysmal atrial tachycardia. 4. There were 2 patient triggered events that correlated to sinus rhythm both at a heart rate of 78 bpm with no arrhythmias. ELECTROCARDIOGRAM (02/28/2021): Sinus rhythm with nonspecific intraventricular conduction delay. ECHOCARDIOGRAM (02/14/2021): 1. This is a technically difficult study due to poor image quality, particularly in the apical views. 2. There is normal left ventricular chamber size with mild concentric left ventricular hypertrophy. No significant regional wall motion abnormalities are identified on this technically difficult study. The left ventricular systolic function appears preserved with an estimated ejection fraction of 55-60%. 3. The left ventricular diastolic function is indeterminate. 4. There is mild aortic valve sclerosis. 5. The pulmonary artery pressure cannot be estimated on this study due to inadequate tricuspid regurgitant envelope. SINGLE VIEW CHEST X-RAY (02/14/2021): 1. No airspace disease or consolidation is seen. 2. Flattening of the diaphragm with coarse interstitial markings could relate to chronic lung disease. 3. The heart size is at the upper limits for normal. LABS (02/14/2021): Hemoglobin 12.2. Platelets 272,000. Sodium 145. Potassium 4. Glucose 158. Creatinine 0.91. GFR 61. Liver function tests normal. Troponin undetectable. TSH 6.34. Magnesium 1.7. ELECTROCARDIOGRAM (02/14/2021 12:47): Sinus rhythm, unremarkable tracing. ELECTROCARDIOGRAM (02/14/2021 09:28): Atrial fibrillation with a ventricular rate of [address] changes. Diagnosis/Problems Diagnosis/Problems (1) Paroxysmal atrial fibrillation Assessment & Plan: She has history of paroxysmal atrial fibrillation and from my examination, sounds as though she may be in atrial fibrillation at this time. I have ordered an electrocardiogram for the morning. I recommend resuming atenolol 50 mg twice daily which she was taking at home. She should continue on rivaroxaban for stroke prophylaxis. She did undergo outpatient monitoring which showed a low burden of atrial fibrillation and therefore, I previously elected not to place her on antiarrhythmic drug. I suspect the current atrial fibrillation may have been brought on by the Covid infection. (2) Aortic valve sclerosis Assessment & Plan: This is most likely the cause of her murmur. This does not require any additional investigation at this time. (3) Primary hypertension Assessment & Plan: Her blood pressures have been trending upwards. This should improve with the atenolol which I reordered for her atrial fibrillation. (4) Mixed hyperlipidemia Assessment & Plan: She was on atorvastatin at home. I will reorder this medication. (5) COVID-19 virus infection Status: Acute Assessment & Plan: This is being managed by the hospitalist. RADHA MEJIA JR, MD Jun 13, 2021 18:29
[2021-06-13 19:34] VITALS: BP 181/64
[2021-06-13] MEDS: ATENOLOL 50 MG (TENORMIN) TAB PO SCH (19:57)
[2021-06-13] MEDS: OXYBUTYNIN (DITROPAN) 5 MG TAB PO SCH ×2 (22:09→22:14)
[2021-06-13] MEDS: CALCIUM CARBONATE 500 MG (TUMS) TAB.CHEW PO SCH ×2 (22:09→22:14)
[2021-06-13] MEDS: LORATADINE (CLARITIN) 10 MG TAB PO SCH ×2 (22:09→22:15)
[2021-06-13] MEDS: DIVALPROEX 250 MG DELAYED RELEASE (DEPAKOTE) TAB PO SCH (22:14)
[2021-06-14] VITALS (7 sets, daily range): BP systolic 142–188; BP diastolic 65–76
[2021-06-14] MEDS: NS IV 1000 ML 1,000 ML IV SCH ×2 (03:19→16:32)
[2021-06-14 06:26] LABS: EOSINOPHILS % (AUTO) 0 % (0-10)
[2021-06-14 06:29] LABS: BASOPHILS % (AUTO) 1 % (0-10); HEMATOCRIT 38 % (35-52); LYMPHOCYTES # (AUTO) 0.9 10^3/uL (1.0-4.0); LYMPHOCYTES % (AUTO) 25 % (12-44); MEAN CORPUSCULAR HEMOGLOBIN 29 pg (25-34); MEAN CORPUSCULAR HGB CONC 32 g/dL (32-36); MEAN CORPUSCULAR VOLUME 91 fL (80-99); MEAN PLATELET VOLUME 10.9 fL (9.0-12.2); MONOCYTES # (AUTO) 0.3 10^3/uL (0.0-1.0); MONOCYTES % (AUTO) 9 % (0-12); NEUTROPHILS # (AUTO) 2.4 10^3/uL (1.8-7.8); NEUTROPHILS % (AUTO) 64 % (42-75); PLATELET COUNT 123 10^3/uL (130-400); WHITE BLOOD COUNT 3.7 10^3/uL (4.3-11.0)
[2021-06-14 06:44] LABS: BILIRUBIN,TOTAL 0.3 MG/DL (0.1-1.0); CALCIUM 8.3 MG/DL (8.5-10.1); CREATININE SERUM 0.73 MG/DL (0.60-1.30); POTASSIUM 3.6 MMOL/L (3.6-5.0); TOTAL PROTEIN 5.7 GM/DL (6.4-8.2)
--- NOTE | 2021-06-14 06:52 | Progress Note - Hospitalist ---
Subjective HPI/CC On Admission Date Seen by Provider: Jun 14, 2021 Time Seen by Provider: 10:30 CC: Altered mental status HPI: 71 yr old WF clinic pt of [facility] and Dr. Oakley cardiology who presents to the ER with altered mental status and unable to really even verbalize. She was diagnosed with Covid-19 pneumonia, placed on appropriate medication, and Dr. Oakley will see her in consultation. She does have a significant murmur. She is very lethargic and doesn't open her eyes during my exam. Subjective/Events-last exam Pt is doing a little better May have responded a little bit today to the nurse Maintained on treatment for Covid and UTI Checked meds and labs Review of Systems Neurological: Confusion Objective Exam Vital Signs Vital Signs Date Time Temp Pulse Resp B/P (MAP) Pulse Ox O2 Delivery O2 Flow Rate FiO2 06/15/21 04:01 37.6 100 20 140/78 (98) 95 Nasal Cannula 2.00 Capillary Refill : General Appearance: No Apparent Distress, WD/WN, Chronically ill Respiratory: Lungs Clear, Normal Breath Sounds Cardiovascular: Regular Rate, Rhythm Neurologic/Psychiatric: Disoriented, Other (Keeps eyes closed) Results/Procedures Lab Laboratory Tests 06/14/21 05:50 Patient resulted labs reviewed. Assessment/Plan Assessment and Plan Assess & Plan/Chief Complaint Assessment: Acute encephalopathy COVID-19 UTI Diabetes Dementia Cardiac murmur Hypertension severe Hyperlipidemia Insomnia Plan: Supportive care Monitor oxygen Cardiology consultation 06/14/2021: Supportive care UTI treatment COVID-19 management Diagnosis/Problems Diagnosis/Problems (1) Acute encephalopathy (2) Murmur (3) Malignant hypertension (4) Dementia (5) COVID-19 virus infection Status: Acute LEONORA JONES DO Jun 14, 2021 06:52
[2021-06-14] MEDS: inSUlin ASPART (NovoLOG) 1 UNIT/0.01 ML (CHARGE PER UNIT) SC SCH ×4 (07:03→20:32)
[2021-06-14] MEDS ORDERED: NON-FORMULARY MEDICATION 1 EA EA (Cranberry Extract (Cranberry) 500 MG) PO SCH (09:00)
[2021-06-14] MEDS: amLODIPine 5 MG (NORVASC) TAB PO SCH (09:04)
[2021-06-14] MEDS: FUROSEMIDE 40 MG (LASIX) TAB PO SCH (09:04)
[2021-06-14] MEDS: lisINopril 20 MG (PRINIVIL) TABLET PO SCH (09:04)
[2021-06-14] MEDS: hydrALAZINE (APRESOLINE) 25 MG TAB PO SCH ×3 (09:04→20:30)
[2021-06-14] MEDS: ATENOLOL 50 MG (TENORMIN) TAB PO SCH ×2 (09:04→20:30)
[2021-06-14] MEDS: LOSARTAN 100 MG (COZAAR) TABLET PO SCH (09:11)
[2021-06-14] MEDS: PANTOPRAZOLE 40 MG (PROTONIX) TAB PO SCH (09:20)
[2021-06-14] MEDS: DIVALPROEX 250 MG DELAYED RELEASE (DEPAKOTE) TAB PO SCH ×2 (09:21→20:30)
[2021-06-14] MEDS: FOLIC ACID 1 MG TAB PO SCH (09:30)
[2021-06-14] MEDS: SENNOSIDES 8.6 MG (SENOKOT) TAB PO SCH ×2 (09:31→20:34)
[2021-06-14] MEDS: DOCUSATE SODIUM 100 MG (COLACE) CAP PO SCH ×2 (09:31→20:34)
[2021-06-14] MEDS: VITAMIN D3 25 MCG (1,000 UNITS) TABLET PO SCH (09:31)
[2021-06-14] MEDS: CYANOCOBALAMIN 1,000 MCG (VITAMIN B-12) TABLET PO SCH (09:31)
--- NOTE | 2021-06-14 10:18 | Cardiology Progress Note ---
Progress Note-Cardiology Events since last exam Date Seen by Provider: Jun 14, 2021 Time Seen by Provider: 10:16 Events since last exam I am following her due to atrial fibrillation. She remains in the Covid unit but not in the intensive care unit. I spoke to her from the doorway due to her Covid status. She was sitting up in bed and opened her eyes when I spoke to her. She denies any chest discomfort or dyspnea but was not answering any of my other questions. She intermittently appeared to be falling asleep while I was speaking with her. When I saw her yesterday, she was in atrial fibrillation but converted to sinus rhythm overnight. Certain portions of this document may have been dictated utilizing voice recognition technology. Inherent to this technology, typographical and grammatical errors may exist. As much as I am diligent to identify and correct these mistakes, some errors may remain in the document. Vitals Last set of Vitals Signs Vital Signs 06/14/21 06/14/21 11:21 12:32 Temp 36.2 Pulse 79 Resp 20 B/P (MAP) 145/67 (93) Pulse Ox 93 O2 Delivery Nasal Cannula O2 Flow Rate 2.00 Labs Labs Laboratory Tests 06/14/21 05:50 Exam Vital Signs Vital Signs Date Time Temp Pulse Resp B/P (MAP) Pulse Ox O2 Delivery O2 Flow Rate FiO2 06/14/21 12:32 79 06/14/21 11:21 36.2 20 145/67 (93) 93 Nasal Cannula 2.00 Physical Exam Due to the patient's COVID status, I viewed the patient from the doorway. General: The patient is not on a ventilator. She would open her eyes to questions and answer some questions but then appeared to fall asleep. HENT: Normocephalic but with several bruises around her eyes and forehead. Skin: There is no pallor. Neurologic: Oriented to person only. Cranial nerves III through XII grossly intact. Moving all 4 extremities. Psychiatric: Somewhat somnolent but did answer a few questions. Labs Laboratory Tests Test 06/13/21 16:26 06/13/21 20:38 06/14/21 05:50 06/14/21 05:53 Range/Units Glucometer 145 H 191 H 125 H 70-110 MG/DL White Blood Count 3.7 L 4.3-11.0 10^3/uL Red Blood Count 4.15 3.80-5.11 10^6/uL Hemoglobin 12.0 11.5-16.0 g/dL Hematocrit 38 35-52 % Mean Corpuscular Volume 91 80-99 fL Mean Corpuscular Hemoglobin 29 25-34 pg Mean Corpuscular Hemoglobin Concent 32 32-36 g/dL Red Cell Distribution Width 14.5 10.0-14.5 % Platelet Count 123 L 130-400 10^3/uL Mean Platelet Volume 10.9 9.0-12.2 fL Immature Granulocyte % (Auto) 1 % Neutrophils (%) (Auto) 64 42-75 % Lymphocytes (%) (Auto) 25 12-44 % Monocytes (%) (Auto) 9 0-12 % Eosinophils (%) (Auto) 0 0-10 % Basophils (%) (Auto) 1 0-10 % Neutrophils # (Auto) 2.4 1.8-7.8 10^3/uL Lymphocytes # (Auto) 0.9 L 1.0-4.0 10^3/uL Monocytes # (Auto) 0.3 0.0-1.0 10^3/uL Eosinophils # (Auto) 0.0 0.0-0.3 10^3/uL Basophils # (Auto) 0.0 0.0-0.1 10^3/uL Immature Granulocyte # (Auto) 0.0 0.0-0.1 10^3/uL Percent Immature Platelet Fraction 3.7 0.0-7.6 % Sodium Level 144 135-145 MMOL/L Potassium Level 3.6 3.6-5.0 MMOL/L Chloride Level 110 H 98-107 MMOL/L Carbon Dioxide Level 23 21-32 MMOL/L Anion Gap 11 5-14 MMOL/L Blood Urea Nitrogen 16 7-18 MG/DL Creatinine 0.73 0.60-1.30 MG/DL Estimat Glomerular Filtration Rate 87 BUN/Creatinine Ratio 22 Glucose Level 127 H 70-105 MG/DL Calcium Level 8.3 L 8.5-10.1 MG/DL Corrected Calcium 9.1 8.5-10.1 MG/DL Total Bilirubin 0.3 0.1-1.0 MG/DL Aspartate Amino Transf (AST/SGOT) 32 5-34 U/L Alanine Aminotransferase (ALT/SGPT) 36 0-55 U/L Alkaline Phosphatase 46 40-136 U/L Total Protein 5.7 L 6.4-8.2 GM/DL Albumin 3.0 L 3.2-4.5 GM/DL Test 06/14/21 11:25 Range/Units Glucometer 235 H 70-110 MG/DL Diagnosis/Problems Diagnosis/Problems (1) Paroxysmal atrial fibrillation Assessment & Plan: She has history of paroxysmal atrial fibrillation and had been in atrial fibrillation when she was admitted but overnight converted to sinus rhythm. I recommend she continue atenolol 50 mg twice daily which she was taking at home. She should continue on rivaroxaban for stroke prophylaxis. She did undergo outpatient monitoring which showed a low burden of atrial fibrillation and therefore, I previously elected not to place her on antiarrhythmic drug. I suspect the current atrial fibrillation may have been brought on by the Covid infection. I recommend she continue on telemetry for the time being. (2) Aortic valve sclerosis Assessment & Plan: This is most likely the cause of her murmur. This does not require any additional investigation at this time. (3) Primary hypertension Assessment & Plan: Her blood pressures have been trending upwards. This should improve with the atenolol which I reordered for her atrial fibrillation. However, if her blood pressure remains elevated, she may need some additional adjustments to her antihypertensive medication. (4) Mixed hyperlipidemia Assessment & Plan: Continue atorvastatin. (5) COVID-19 virus infection Status: Acute Assessment & Plan: This is being managed by the hospitalist. RADHA MEJIA JR, MD Jun 14, 2021 10:18
--- NOTE | 2021-06-14 12:22 | Physical Therapy Progress Note ---
Therapy Progress Note Attempted to see patient for PT evaluation. Nurse reports she is still not responding to stimuli. Will attempt again tomorrow. BURAK SALINAS PT Jun 14, 2021 12:22
--- NOTE | 2021-06-14 13:00 | Occ Therapy Progress Note ---
Therapy Progress Note Pt on hold today per nursing staff due to not responding to stimuli. OT will attempt again tomorrow. MIMI GATES OT Jun 14, 2021 13:00
[2021-06-14] MEDS: cefTRIAXone 1 GM PRE-MIX 50 ML IV SCH (16:32)
[2021-06-14] MEDS: RIVAROXABAN 20 MG TABLET (XARELTO) PO SCH (16:32)
[2021-06-14] MEDS: OXYBUTYNIN (DITROPAN) 5 MG TAB PO SCH (20:30)
[2021-06-15] VITALS (7 sets, daily range): BP systolic 119–172; BP diastolic 55–81
[2021-06-15] MEDS: NS IV 1000 ML 1,000 ML IV SCH (04:05)
[2021-06-15] MEDS: inSUlin ASPART (NovoLOG) 1 UNIT/0.01 ML (CHARGE PER UNIT) SC SCH ×4 (05:38→20:47)
[2021-06-15 05:44] LABS: BASOPHILS % (AUTO) 0 % (0-10); EOSINOPHILS % (AUTO) 0 % (0-10); HEMATOCRIT 41 % (35-52); MEAN CORPUSCULAR VOLUME 91 fL (80-99); MEAN PLATELET VOLUME 11.1 fL (9.0-12.2)
[2021-06-15 05:46] LABS: LYMPHOCYTES # (AUTO) 0.9 10^3/uL (1.0-4.0); LYMPHOCYTES % (AUTO) 20 % (12-44); MEAN CORPUSCULAR HEMOGLOBIN 29 pg (25-34); MEAN CORPUSCULAR HGB CONC 32 g/dL (32-36); MONOCYTES # (AUTO) 0.3 10^3/uL (0.0-1.0); MONOCYTES % (AUTO) 7 % (0-12); NEUTROPHILS # (AUTO) 3.3 10^3/uL (1.8-7.8); NEUTROPHILS % (AUTO) 71 % (42-75); PLATELET COUNT 132 10^3/uL (130-400); WHITE BLOOD COUNT 4.6 10^3/uL (4.3-11.0)
--- NOTE | 2021-06-15 05:50 | Progress Note - Hospitalist ---
Subjective HPI/CC On Admission Date Seen by Provider: Jun 15, 2021 Time Seen by Provider: 10:30 CC: Altered mental status HPI: 71 yr old [facility]F clinic pt of [facility] and Dr. Oakley cardiology who presents to the ER with altered mental status and unable to really even verbalize. She was diagnosed with Covid-19 pneumonia, placed on appropriate medication, and Dr. Oakley will see her in consultation. She does have a significant murmur. She is very lethargic and doesn't open her eyes during my exam. Subjective/Events-last exam Pt is doing a lot better Opens her eyes and understands questions Just not any verbalization right now Will discontinue telemetry because afib is occurring and then resolving Will discontinue IV fluids Review of Systems General: Fatigue, Malaise Neurological: Weakness, Confusion Objective Exam Vital Signs Vital Signs Date Time Temp Pulse Resp B/P (MAP) Pulse Ox O2 Delivery O2 Flow Rate FiO2 06/15/21 23:28 37.7 98 18 160/71 (100) 93 Nasal Cannula 2.00 06/15/21 15:16 28 Capillary Refill : General Appearance: No Apparent Distress, WD/WN, Chronically ill Respiratory: Lungs Clear, Normal Breath Sounds Cardiovascular: Regular Rate, Rhythm Neurologic/Psychiatric: Alert, Disoriented Results/Procedures Lab Laboratory Tests 06/15/21 05:30 Patient resulted labs reviewed. Assessment/Plan Assessment and Plan Assess & Plan/Chief Complaint Assessment: Acute encephalopathy COVID-19 UTI Diabetes Dementia Cardiac murmur Hypertension severe Hyperlipidemia Insomnia Atrial fibrillation Plan: Supportive care Monitor oxygen Cardiology consultation 06/14/2021: Supportive care UTI treatment COVID-19 management 06/15/2021: Encephalopathy resolving Appreciate cardiology Diagnosis/Problems Diagnosis/Problems (1) Acute encephalopathy (2) Murmur (3) Malignant hypertension (4) Dementia (5) COVID-19 virus infection Status: Acute LEONORA JONES DO Jun 15, 2021 05:50
[2021-06-15 06:19] LABS: ALBUMIN 3.1 GM/DL (3.2-4.5); POTASSIUM 3.5 MMOL/L (3.6-5.0)
[2021-06-15 06:21] LABS: CALCIUM 8.4 MG/DL (8.5-10.1)
[2021-06-15 06:22] LABS: TOTAL PROTEIN 5.8 GM/DL (6.4-8.2)
[2021-06-15 06:24] LABS: BILIRUBIN,TOTAL 0.3 MG/DL (0.1-1.0)
[2021-06-15 06:26] LABS: CREATININE SERUM 0.71 MG/DL (0.60-1.30)
[2021-06-15] MEDS: DIVALPROEX 250 MG DELAYED RELEASE (DEPAKOTE) TAB PO SCH ×2 (08:53→20:47)
[2021-06-15] MEDS: ACETAMINOPHEN 325 MG TABLET PO PRN (08:53)
[2021-06-15] MEDS: FUROSEMIDE 40 MG (LASIX) TAB PO SCH (08:53)
[2021-06-15] MEDS: DOCUSATE SODIUM 100 MG (COLACE) CAP PO SCH ×2 (08:53→20:47)
[2021-06-15] MEDS: ATENOLOL 50 MG (TENORMIN) TAB PO SCH ×2 (08:53→20:47)
[2021-06-15] MEDS: VITAMIN D3 25 MCG (1,000 UNITS) TABLET PO SCH (08:54)
[2021-06-15] MEDS: hydrALAZINE (APRESOLINE) 25 MG TAB PO SCH ×3 (08:54→20:47)
[2021-06-15] MEDS: LOSARTAN 100 MG (COZAAR) TABLET PO SCH (08:54)
[2021-06-15] MEDS: SENNOSIDES 8.6 MG (SENOKOT) TAB PO SCH ×2 (08:54→20:47)
[2021-06-15] MEDS: amLODIPine 5 MG (NORVASC) TAB PO SCH (08:54)
[2021-06-15] MEDS: PANTOPRAZOLE 40 MG (PROTONIX) TAB PO SCH (08:54)
[2021-06-15] MEDS: CYANOCOBALAMIN 1,000 MCG (VITAMIN B-12) TABLET PO SCH (08:54)
[2021-06-15] MEDS: lisINopril 20 MG (PRINIVIL) TABLET PO SCH (08:54)
[2021-06-15] MEDS: OXYBUTYNIN (DITROPAN) 5 MG TAB PO SCH ×2 (08:54→20:47)
[2021-06-15] MEDS: FOLIC ACID 1 MG TAB PO SCH (08:54)
--- NOTE | 2021-06-15 12:03 | Physician Query Clarification ---
Physician Query-General Query to Physician: The medical record reflects the following clinical evidence: Clinical Indicators: Altered mental status, Documentation in the HPI "She was diagnosed with Covid-19 pneumonia, placed on appropriate medication" Non productive Cough, Chest CT with this impression: "Chest shows scattered pulmonary ground-glass and nodular infiltrates, presumed infectious disease". O2 sat 89% on RA, 94% on 2L Risk Factor(s): Covid 19, positive, Advanced age, Dementia Treatment: Supplemental 02, Ceftriaxone IV, LR 1L, Respiratory monitoring, Radiologic studies of chest 1. Pneumonia due to coronavirus disease 2018, present on admission 2. Other explanation of clinical findings 3. Unable to determine (no explanation for clinical findings) (Covid Pneumonia is listed in the HPI but not under the Diagnosis portion of the H and P and progress notes/appears to conflict) Please clarify and document your clinical opinion in the progress notes and discharge summary including the definitive and/or presumptive diagnosis, (suspected or probable), related to the above clinical findings. Please include clinical findings supporting your diagnosis. Maryjane Chandler MSN, RN Clinical Bakery Team Leader [phone] [email or web address] PHYSICIAN RESPONSE: Based on the clinical findings in the record, please respond to the query above on this document as an addendum. Physician Response: Physician Response 1 If you have questions please contact: Spinneret Person: Ext: Thank you for your time and cooperation. Clinical Bakery Team Leader/Spinneret Person This is a permanent part of the medical rec ord MARYJANE CHANDLER Jun 15, 2021 12:03 LEONORA JONES DO Jun 15, 2021 12:44
--- NOTE | 2021-06-15 12:05 | Cardiology Progress Note ---
Progress Note-Cardiology Events since last exam Date Seen by Provider: Jun 15, 2021 Time Seen by Provider: 12:04 Events since last exam I am following her for paroxysmal atrial fibrillation which occurred prior to this admission. She remains on the medical floor in the Covid unit. Today she was more awake but oriented only to person. She denied chest pain, dyspnea, palpitations, syncope, or ankle edema. However, she did appear somewhat confused. I spoke to her nurse who states that she has been more alert today but only oriented to person. Prior to this admission, she was oriented x3. This morning the nurse had told me the patient was going in and out of atrial fibrillation and would develop tachycardia with the atrial fibrillation. The primary attending then discontinued the quality assurance monitor final. I had previously known the patient was going in and out of atrial fibrillation prior to this admi ssion. Certain portions of this document may have been dictated utilizing voice recognition technology. Inherent to this technology, typographical and grammatical errors may exist. As much as I am diligent to identify and correct these mistakes, some errors may remain in the document. Vitals Last set of Vitals Signs Vital Signs 06/15/21 11:50 Temp 37.0 Pulse 94 Resp 18 B/P (MAP) 119/55 (76) Pulse Ox 90 O2 Delivery Nasal Cannula O2 Flow Rate 2.00 Labs Labs Laboratory Tests 06/15/21 05:30 Exam Vital Signs Vital Signs Date Time Temp Pulse Resp B/P (MAP) Pulse Ox O2 Delivery O2 Flow Rate FiO2 06/15/21 11:50 37.0 94 18 119/55 (76) 90 Nasal Cannula 2.00 Physical Exam Due to the patient's COVID status, I viewed the patient from the doorway. General: The patient is not on a ventilator. HENT: She has several areas of ecchymoses around her left eye and forehead from a previous fall. These appear to be improving. Skin: There is no pallor. Neurologic: Oriented to person only. Cranial nerves III through XII grossly in tact. Moving all 4 extremities. Psychiatric: Appears cooperative. Labs Laboratory Tests Test 06/14/21 15:58 06/14/21 20:27 06/15/21 05:30 06/15/21 05:33 Range/Units Glucometer 209 H 148 H 148 H 70-110 MG/DL White Blood Count 4.6 4.3-11.0 10^3/uL Red Blood Count 4.52 3.80-5.11 10^6/uL Hemoglobin 13.0 11.5-16.0 g/dL Hematocrit 41 35-52 % Mean Corpuscular Volume 91 80-99 fL Mean Corpuscular Hemoglobin 29 25-34 pg Mean Corpuscular Hemoglobin Concent 32 32-36 g/dL Red Cell Distribution Width 14.4 10.0-14.5 % Platelet Count 132 130-400 10^3/uL Mean Platelet Volume 11.1 9.0-12.2 fL Immature Granulocyte % (Auto) 1 % Neutrophils (%) (Auto) 71 42-75 % Lymphocytes (%) (Auto) 20 12-44 % Monocytes (%) (Auto) 7 0-12 % Eosinophils (%) (Auto) 0 0-10 % Basophils (%) (Auto) 0 0-10 % Neutrophils # (Auto) 3.3 1.8-7.8 10^3/uL Lymphocytes # (Auto) 0.9 L 1.0-4.0 10^3/uL Monocytes # (Auto) 0.3 0.0-1.0 10^3/uL Eosinophils # (Auto) 0.0 0.0-0.3 10^3/uL Basophils # (Auto) 0.0 0.0-0.1 10^3/uL Immature Granulocyte # (Auto) 0.0 0.0-0.1 10^3/uL Percent Immature Platelet Fraction 3.7 0.0-7.6 % Sodium Level 143 135-145 MMOL/L Potassium Level 3.5 L 3.6-5.0 MMOL/L Chloride Level 108 H 98-107 MMOL/L Carbon Dioxide Level 23 21-32 MMOL/L Anion Gap 12 5-14 MMOL/L Blood Urea Nitrogen 14 7-18 MG/DL Creatinine 0.71 0.60-1.30 MG/DL Estimat Glomerular Filtration Rate 90 BUN/Creatinine Ratio 20 Glucose Level 149 H 70-105 MG/DL Calcium Level 8.4 L 8.5-10.1 MG/DL Corrected Calcium 9.1 8.5-10.1 MG/DL Total Bilirubin 0.3 0.1-1.0 MG/DL Aspartate Amino Transf (AST/SGOT) 29 5-34 U/L Alanine Aminotransferase (ALT/SGPT) 33 0-55 U/L Alkaline Phosphatase 48 40-136 U/L Total Protein 5.8 L 6.4-8.2 GM/DL Albumin 3.1 L 3.2-4.5 GM/DL Test 06/15/21 11:50 Range/Units Glucometer 233 H 70-110 MG/DL Diagnosis/Problems Diagnosis/Problems (1) Paroxysmal atrial fibrillation Assessment & Plan: She has history of paroxysmal atrial fibrillation and had been in atrial fibrillation when she was admitted last night converted to sinus rhythm. I recommend she continue atenolol 50 mg twice daily which she was taking at home. She should continue on rivaroxaban for stroke prophylaxis. She did undergo outpatient monitoring which showed a low burden of atrial fibrillation and therefore, I previously elected not to place her on antiarrhythmic drug. I suspect the current atrial fibrillation may have been brought on by the Covid infection. She continues to have intermittent atrial fibrillation. This usually resolves spontaneously. If this becomes more pe rsistent or prolonged, then we may need to start antiarrhythmic drug. Given her relatively young age, I would prefer not to use amiodarone if we do need to start antiarrhythmic drug. (2) Aortic valve sclerosis Assessment & Plan: This is most likely the cause of her murmur. This does not require any additional investigation at this time. (3) Primary hypertension Assessment & Plan: Her blood pressures had been trending upwards but appear improved today. She is on multiple antihypertensive medications. She is also taking both lisinopril and losartan. We may want to change 1 of these to a different agent. (4) Mixed hyperlipidemia Assessment & Plan: Continue atorvastatin. (5) COVID-19 virus infection Status: Acute Assessment & Plan: This is being managed by the hospitalist. RADHA MEJIA JR, MD Jun 15, 2021 12:05
--- NOTE | 2021-06-15 14:21 | Occupational Therapy Eval ---
OT Evaluation-General/PLF Medical Diagnosis Admission Date Jun 12, 2021 at 16:28 Medical Diagnosis: Covid-19, acute encephalopathy, AMS, UTI Onset Date: Jun 13, 2021 Therapy Diagnosis Therapy Diagnosis: Weakness, Decreased ADL skills Height/Weight Height (Feet): 5 Height (Inches): 4.00 Weight (Pounds): 151 Precautions Precautions/Isolations: Airborne Isolation, Contact Isolation, Droplet Isolation, Fall Prevention Referral Physician: Dr. Montiel Referral Reason: Activity Tolerance, Self Care, Evaluation/Treatment, Strengthening/ROM Medical History Pertinent Medical History: Arthritis, DM, GERD Additional Medical History Kidney stones, cataract Current History Pt. fell at some point at home. Pt. presented to ED unable to speak and lethargic. Pt. also has hematoma on face and around eyes from fall. Diagnosed with acute encephalopathy. Reviewed History: Yes Social History Pt. unable to give OT history. ADL-Prior Level of Function SCALE: Activities may be completed with or without assistive devices. 4-Rlqwisfvye-stvqwbw completes the activity by him/herself with no assistance f rom a helper. 5-Set-up or Clean-up Assistance-helper sets up or cleans up; patient completes activity. [place] assists only prior to or following the activity. 4-Supervision or Touching Assistance-helper provides verbal cues and/or touching/steadying and/or contact guard assistance as patient completes activity. Assistance may be provided throughout the activity or intermittently. 3-Partial/Moderate Assistance-helper does LESS THAN HALF the effort. [place] lifts, holds or supports trunk or limbs, but provides less than half the effort. 2-Substantial/Maximal Assistance-helper does MORE THAN HALF the effort. [place] lifts or holds trunk or limbs and provides more than half the effort. 0-Up[place]q-ogafot does ALL the effort. Patient does none of the effort to complete the activity. Or, the assistance of 2 or more helpers is required for the patient to complete the activity. If activity was not attempted, code reason: 7-Patient Refused. 9-Not Applicable-not attempted and the patient did not perform the activity before the current illness, exacerbation or injury. 10-Not Attempted due to Environmental Limitations-(lack of equipment, weather restraints, etc.). 88-Not Attempted due to Medical Conditions or Safety Concerns. ADL PLOF Comments Pt. unable to accurately give OT history. She is only oriented to 1. She does not know where she is or what happened to her. Self Care: Unknown Functional Cognition: Unknown OT Current Status Subjective Pt. does state, "I have Parkinsons." Appearance Pt. in bed. She is alert but not oriented. She does greet OT when OT enters room. Mental Status/Objective Patient Orientation: Person Attachments: Gross Catheter Current Upper Extremity ROM Pt. demonstrates ability to flex bilateral shoulders to approximately 60* at bed level. She is able to pull self forward in bed by holding onto OT arm so that OT can position pillow. ADL-Treatment Eating (QC): 3 (Mod assist and cues.) Other Treatments Pt. in bed. She indicates that she wants the coffee at bedside but it is too hot. OT attempts to have pt. hold her water bottle to take a drink, and she does, but requires cues to place straw in mouth. Pt. is displaced in her bed, but does not seem to notice. OT attempts to have her reposition herself and assist herself in the bed. She is able to pull on rails and OT's arm to pull forward, but does not initiate moving very much. OT and nurse aide pull pt. up in bed with max x 2. Pt. indicates that she is comfortable. Applesauce is laying on bedside table, and pt. indicates that she would like it. OT gives it to pt. with spoon in it, but pt. has tremors from reported Parkinsons. OT applies slight pressure to pt's hand while pt. is able to bring spoon up to her mouth. Pt. is able to do this with each bite, and finishes applesauce quickly. She states, "thats enough" and does not want anymore. All needs are met and bed alarm is set, pt. with call light. Education OT Patient Education: Correct positioning, Modified ADL techniques, Progress toward Goal/Update tx plan, Purpose of tx/functional activities, Reviewed precautions, Rehab process, Transfer techniques Teaching Recipient: Patient Teaching Methods: Demonstration, Discussion Response to Teaching: Reinforcement Needed OT Short Term Goals Short Term Goals Time Frame: Jun 29, 2021 Eatin Oral hygiene: 3 Toileting hygiene: 3 Upper body dressin OT Mcc Goals Mcc Goals Time Frame: Jul 13, 2021 Eating (QC): 5 Oral Hygiene (QC): 5 Toileting Hygiene (QC): 4 Shower/Bathe Self (QC): 3 Upper Body Dressing (QC): 4 Lower Body Dressing (QC): 3 On/Off Footwear (QC): 3 All ADLs with AE as needed. Additional Goals: 1-Demonstrate ADL Tasks, 2-Verbalize Understanding, 3- ImproveStrength/[place] 1=Demonstrate adherence to instructed precautions during ADL tasks. 2=Patient will verbalize/demonstrate understanding of assistive devic es/modifications for ADL. 3=Patient will improve strength/tolerance for activity to enable patient to perform ADL's. OT Education/Plan Problem List/Assessment Assessment: Decreased Activ Tolerance, Decreased Safety Aware, Decreased UE Strength, Dependent Transfers, Impaired Bed Mobility, Impaired Cognition, Impaired Funct Balance, Impaired I ADL's, Impaired Self-Care Skills, Restricted Funct UE ROM Discharge Recommendations Plan/Recommendations: Continue POC Therapy Discharge Recommendati: 24 Hour Supervision, Post Acute OT Comment Equipment needs and discharge location to be determined. Treatment Plan/Plan of Care Treatment,Training & Education: Yes Patient would benefit from OT for education, treatment and training to promote i ndependence in ADL's, mobility, safety and/or upper extremity function for ADL's. Plan of Care: ADL Retraining, Functional Mobility, UE Funct Exercise/Act Treatment Duration: Jul 13, 2021 Frequency: 3 times per week (3-5x per week) Estimated Hrs Per Day: .25 hour per day Agreement: Yes Rehab Potential: Fair Time/GCodes Start Time: 13:50 Stop Time: 14:05 Total Time Billed (hr/min): 15 Billed Treatment Time 1, JENNIFFER JOHNSON OT Jun 15, 2021 14:21
--- NOTE | 2021-06-15 14:23 | Physical Therapy Evaluation ---
PT Evaluation-General Medical Diagnosis Admission Date Jun 12, 2021 at 16:28 Medical Diagnosis: COVID PNA Onset Date: Jun 12, 2021 Therapy Diagnosis Therapy Diagnosis: Gait deficit, strength deficit Height/Weight Height (Feet): 5 Height (Inches): 4.00 Weight (Pounds): 151 Precautions Precautions/Isolations: Airborne Isolation, Contact Isolation, Droplet Isolation, Fall Prevention Weight Bear Status Right Lower Extremity: Right Weight Bearing/Tolerated Left Lower Extremity: Left Weight Bearing/Tolerated Referral Physician: Dr. Montiel Reason for Referral: Evaluation/Treatment Social History Home: Current Living Status: Patient unable to answer or refuses to answer most questions. Unable to obtain PLOF or living arrangements via chart. Prior Prior Level of Function SCALE: Activities may be completed with or without assistive devices. 2-Cuzauiveqp-fafvkwc completes the activity by him/herself with no assistance from a helper. 5-Set-up or Clean-up Assistance-helper sets up or cleans up; patient completes activity. [place] assists only prior to or following the activity. 4-Supervision or Touching Assistance-helper provides verbal cues and/or touching/steadying and/or contact guard assistance as patient completes act ivity. Assistance may be provided throughout the activity or intermittently. 3-Partial/Moderate Assistance-helper does LESS THAN HALF the effort. [place] lifts, holds or supports trunk or limbs, but provides less than half the effort. 2-Substantial/Maximal Assistance-helper does MORE THAN HALF the effort. [place] lifts or holds trunk or limbs and provides more than half the effort. 6-Kpiovmhlv-iaghto does ALL the effort. Patient does none of the effort to complete the activity. Or, the assistance of 2 or more helpers is required for the patient to complete the activity. If activity was not attempted, code reason: 7-Patient Refused. 9-Not Applicable-not attempted and the patient did not perform the activity before the current illness, exacerbation or injury. 10-Not Attempted due to Environmental Limitations-(lack of equipment, weather restraints, etc.). 88-Not Attempted due to Medical Conditions or Safety Concerns. Bed Mobility: 6 Transfers (B,C,W/C): 6 Gait: 6 Stairs: 6 Patient nods at certain questions, however unable to accurately give PLOF. PT Evaluation-Current Subjective Patient responds "hello" upon PT entering and greeting her. She agrees to treatment, however does not respond to most questions. Objective Attachments: Gross Catheter, IV Patient unable to verbalize her name, place, time or situation. Additionally she was unable to tell me where she lived prior to coming to the hospital. ROM/Strength ROM Lower Extremities WFLs with PROM bilaterally Strength Lower Extremities Unable to accurately assess Sensory Vision: Functional Hearing: Impaired Sensation Lower Extremities Unable assess sensation to light touch as patient reports she is being touched even when her LEs bilaterally are not. Transfers Roll Left to Right (QC): 3 Sit to Lying (QC): 3 Lying to Sitting/Side of Bed(Q: 3 Sit to Stand (QC): 3 Gait Does the Patient Walk?: No and Walking Goal IS indicated Balance Sitting Static: Good Sitting Dynamic: Good Standing Static: Poor Standing Dynamic: Poor Assessment/Needs Patient tolerated treatment fair. More awake and alert today, however continues to ignore or not understand questions asked by this therapist. Patient performs all bed mobility with mod A and sit to stand with mod A. Patient able to sit at edge of bed ~ 5 minutes. Upon transferring patient was mildly incontinent of BM. PT performed total care to clean while assisting with standing. Patient returned to supine with mod A. Patient in bed post treatment with all needs met, nursing notified, call light in reach and bed alarm activate. Rehab Potential: Fair Equipment Needs Unsure at this time. PT Short Term Goals Short Term Goals Time Frame: Jun 26, 2021 Roll Left & Right: 4 Sit to lyin Lying to sitting on side of be: 4 Sit to stand: 4 Chair/utr-cx-mtrqf transfer: 4 Toilet transfer: 4 PT Shelter Goals Shelter Goals PT Shelter Goals Time Frame: Jul 07, 2021 Roll Left & Right (QC): 6 Sit to Lying (QC): 6 Lying-Sitting on Side/Bed(QC): 6 Sit to Stand (QC): 6 Chair/Wya-kl-Rshap Xfer(QC): 6 Toilet Transfer (QC): 6 Does the Patient Walk: Yes Walk 10 feet (QC): 4 Walk 50ft with 2 Turns (QC): 4 Walk 150 ft (QC): 4 PT Plan Problem List Problem List: Activity Tolerance, Functional Strength, Safety, Balance, Gait, Transfer, Bed Mobility, ROM Treatment/Plan Treatment Plan: Continue Plan of Care Treatment Plan: Bed Mobility, Education, Functional Activity Kody, Functional Strength, Group Therapy, Gait, Safety, Therapeutic Exercise, Transfers Treatment Duration: Jul 27, 2021 Frequency: 6 times per week Estimated Hrs Per Day: .25 hour per day Patient and/or Family Agrees t: Yes Safety Risks/Education Patient Education: Transfer Techniques Teaching Recipient: Patient Teaching Methods: Demonstration, Discussion Response to Teaching: Reinforcement Needed Discharge Recommendations Target Placement SNF Time/GCodes Time In: 1106 Time Out: 1130 Total Billed Treatment Time: 24 Total Billed Treatment Visit, USMAN BREEN JOHN A PT Jun 15, 2021 14:23
[2021-06-15] MEDS: RIVAROXABAN 20 MG TABLET (XARELTO) PO SCH (16:05)
[2021-06-15] MEDS: cefTRIAXone 1 GM PRE-MIX 50 ML IV SCH (16:05)
[2021-06-15] MEDS: LORATADINE (CLARITIN) 10 MG TAB PO SCH (20:47)
[2021-06-15] MEDS: CALCIUM CARBONATE 500 MG (TUMS) TAB.CHEW PO SCH (20:48)
[2021-06-16 04:00] VITALS: BP 158/78
[2021-06-16] MEDS: inSUlin ASPART (NovoLOG) 1 UNIT/0.01 ML (CHARGE PER UNIT) SC SCH ×4 (05:17→21:14)
--- NOTE | 2021-06-16 06:05 | Progress Note - Hospitalist ---
Subjective HPI/CC On Admission Date Seen by Provider: Jun 16, 2021 Time Seen by Provider: 12:00 CC: Altered mental status HPI: 71 yr old [facility] clinic pt of [facility] and Dr. Oakley cardiology who presents to the ER with altered mental status and unable to really even verbalize. She was diagnosed with Covid-19 pneumonia, placed on appropriate medication, and Dr. Oakley will see her in consultation. She does have a significant murmur. She is very lethargic and doesn't open her eyes during my exam. Subjective/Events-last exam Pt is doing a lot better Able to talk more Very frail and slow recovery Will need senior living placement Review of Systems General: Fatigue, Malaise Neurological: Change in speech, Confusion Objective Exam Vital Signs Vital Signs Date Time Temp Pulse Resp B/P (MAP) Pulse Ox O2 Delivery O2 Flow Rate FiO2 06/16/21 23:39 37.6 98 18 148/67 (94) 94 Nasal Cannula 2.00 06/15/21 15:16 28 Capillary Refill : General Appearance: No Apparent Distress, WD/WN, Chronically ill Respiratory: Lungs Clear, Normal Breath Sounds Cardiovascular: Regular Rate, Rhythm Neurologic/Psychiatric: Alert, Depressed Affect Results/Procedures Lab Laboratory Tests 06/16/21 06:24 Patient resulted labs reviewed. Assessment/Plan Assessment and Plan Assess & Plan/Chief Complaint Assessment: Acute encephalopathy COVID-19 UTI Diabetes Dementia Cardiac murmur Hypertension severe Hyperlipidemia Insomnia Atrial fibrillation Plan: Supportive care Monitor oxygen Cardiology consultation 06/14/2021: Supportive care UTI treatment COVID-19 management 06/15/2021: Encephalopathy resolving Appreciate cardiology 06/16/2021: Encephalopathy resolving Diagnosis/Problems Diagnosis/Problems (1) Acute encephalopathy (2) Murmur (3) Malignant hypertension (4) Dementia (5) COVID-19 virus infection Status: Acute LEONORA JONES DO Jun 16, 2021 06:05
[2021-06-16 06:39] LABS: BASOPHILS % (AUTO) 0 % (0-10); EOSINOPHILS % (AUTO) 0 % (0-10); MEAN PLATELET VOLUME 11.1 fL (9.0-12.2); MONOCYTES # (AUTO) 0.2 10^3/uL (0.0-1.0)
[2021-06-16 06:40] LABS: HEMATOCRIT 35 % (35-52); HEMOGLOBIN 11.4 g/dL (11.5-16.0); LYMPHOCYTES # (AUTO) 0.9 10^3/uL (1.0-4.0); LYMPHOCYTES % (AUTO) 18 % (12-44); MEAN CORPUSCULAR HEMOGLOBIN 29 pg (25-34); MEAN CORPUSCULAR HGB CONC 32 g/dL (32-36); MEAN CORPUSCULAR VOLUME 90 fL (80-99); MONOCYTES % (AUTO) 5 % (0-12); NEUTROPHILS # (AUTO) 3.6 10^3/uL (1.8-7.8); NEUTROPHILS % (AUTO) 76 % (42-75); PLATELET COUNT 136 10^3/uL (130-400); WHITE BLOOD COUNT 4.8 10^3/uL (4.3-11.0)
[2021-06-16 06:58] LABS: ALBUMIN 2.7 GM/DL (3.2-4.5)
[2021-06-16 06:59] LABS: POTASSIUM 3.3 MMOL/L (3.6-5.0)
[2021-06-16 07:00] LABS: CALCIUM 8.3 MG/DL (8.5-10.1)
[2021-06-16 07:01] LABS: TOTAL PROTEIN 5.6 GM/DL (6.4-8.2)
[2021-06-16 07:03] LABS: BILIRUBIN,TOTAL 0.3 MG/DL (0.1-1.0)
[2021-06-16 07:05] LABS: CREATININE SERUM 0.67 MG/DL (0.60-1.30)
[2021-06-16 08:18] VITALS: BP 159/76
--- NOTE | 2021-06-16 08:48 | Cardiology Progress Note ---
Progress Note-Cardiology Events since last exam Date Seen by Provider: Jun 16, 2021 Time Seen by Provider: 08:46 Events since last exam I am following her for paroxysmal atrial fibrillation which was present prior to admission. She remains on the medical floor in the Covid unit. I spoke to her from the doorway due to her Covid status. This morning she was looking at me but not answering any questions. Yesterday she was more conversive and the day before her mental status was similar to how she appears this morning. As such, I could not obtain any history from the patient since she was not answering any questions. Certain portions of this document may have been dictated utilizing voice recognition technology. Inherent to this technology, typographical and grammatical errors may exist. As much as I am diligent to identify and correct these mistakes, some errors may remain in the document. Vitals Last set of Vitals Signs Vital Signs 06/15/21 06/16/21 15:16 08:18 Temp 37.3 Pulse 108 Resp 20 B/P (MAP) 159/76 (103) Pulse Ox 92 O2 Delivery Nasal Cannula O2 Flow Rate 2.00 FiO2 28 Labs Labs Laboratory Tests 06/16/21 06:24 Exam Vital Signs Vital Signs Date Time Temp Pulse Resp B/P (MAP) Pulse Ox O2 Delivery O2 Flow Rate FiO2 06/16/21 08:18 37.3 108 20 159/76 (103) 92 Nasal Cannula 2.00 06/15/21 15:16 28 Physical Exam Due to the patient's COVID status, I viewed the patient from the doorway. General: The patient is not on a ventilator. HENT: Normocephalic. Multiple ecchymoses on her face and forehead from a previous fall. Skin: There is no pallor. Neurologic: Not answering questions. Cranial nerves III through XII grossly intact. Moving all 4 extremities. Psychiatric: Not answering questions. Labs Laboratory Tests Test 06/15/21 11:50 06/15/21 16:37 06/15/21 20:03 06/16/21 05:07 Range/Units Glucometer 233 H 199 H 228 H 171 H 70-110 MG/DL Test 06/16/21 06:24 Range/Units White Blood Count 4.8 4.3-11.0 10^3/uL Red Blood Count 3.93 3.80-5.11 10^6/uL Hemoglobin 11.4 L 11.5-16.0 g/dL Hematocrit 35 35-52 % Mean Corpuscular Volume 90 80-99 fL Mean Corpuscular Hemoglobin 29 25-34 pg Mean Corpuscular Hemoglobin Concent 32 32-36 g/dL Red Cell Distribution Width 14.4 10.0-14.5 % Platelet Count 136 130-400 10^3/uL Mean Platelet Volume 11.1 9.0-12.2 fL Immature Granulocyte % (Auto) 1 % Neutrophils (%) (Auto) 76 H 42-75 % Lymphocytes (%) (Auto) 18 12-44 % Monocytes (%) (Auto) 5 0-12 % Eosinophils (%) (Auto) 0 0-10 % Basophils (%) (Auto) 0 0-10 % Neutrophils # (Auto) 3.6 1.8-7.8 10^3/uL Lymphocytes # (Auto) 0.9 L 1.0-4.0 10^3/uL Monocytes # (Auto) 0.2 0.0-1.0 10^3/uL Eosinophils # (Auto) 0.0 0.0-0.3 10^3/uL Basophils # (Auto) 0.0 0.0-0.1 10^3/uL Immature Granulocyte # (Auto) 0.1 0.0-0.1 10^3/uL Percent Immature Platelet Fraction 4.5 0.0-7.6 % Sodium Level 141 135-145 MMOL/L Potassium Level 3.3 L 3.6-5.0 MMOL/L Chloride Level 107 98-107 MMOL/L Carbon Dioxide Level 24 21-32 MMOL/L Anion Gap 10 5-14 MMOL/L Blood Urea Nitrogen 16 7-18 MG/DL Creatinine 0.67 0.60-1.30 MG/DL Estimat Glomerular Filtration Rate 92 BUN/Creatinine Ratio 24 Glucose Level 145 H 70-105 MG/DL Calcium Level 8.3 L 8.5-10.1 MG/DL Corrected Calcium 9.3 8.5-10.1 MG/DL Total Bilirubin 0.3 0.1-1.0 MG/DL Aspartate Amino Transf (AST/SGOT) 35 H 5-34 U/L Alanine Aminotransferase (ALT/SGPT) 30 0-55 U/L Alkaline Phosphatase 41 40-136 U/L Total Protein 5.6 L 6.4-8.2 GM/DL Albumin 2.7 L 3.2-4.5 GM/DL Diagnosis/Problems Diagnosis/Problems (1) Paroxysmal atrial fibrillation Assessment & Plan: She has history of paroxysmal atrial fibrillation and had been in atrial fibrillation when she was admitted and then converted to sinus rhythm but seems to be going back and forth between sinus and atrial fibrillation. I recommend she continue atenolol 50 mg twice daily which she was taking at home. She should continue on rivaroxaban for stroke prophylaxis. She did undergo outpatient monitoring which showed a low burden of atrial fibrillation and therefore, I previously elected not to place her on antiarrhythmic drug. I suspect the current atrial fibrillation may have been brought on by the Covid infection. The atrial fibrillation becomes more persi stent or prolonged, then we may need to start antiarrhythmic drug. Given her relatively young age, I would prefer not to use amiodarone if we do need to start antiarrhythmic drug. (2) Primary hypertension Assessment & Plan: Her blood pressures had been trending upwards but appear to be improving she is on multiple antihypertensive medications. She is also taking both lisinopril and losartan. We may want to change one of these to a different agent. I will leave this up to the discretion of the hospitalist. (3) Mixed hyperlipidemia Assessment & Plan: Continue atorvastatin. (4) Aortic valve sclerosis Assessment & Plan: This is most likely the cause of her murmur. This does not require any additional investigation at this time. (5) COVID-19 virus infection Status: Acute Assessment & Plan: This is being managed by the hospitalist. RADHA MEJIA JR, MD Jun 16, 2021 08:48
[2021-06-16] MEDS: DOCUSATE SODIUM 100 MG (COLACE) CAP PO SCH ×2 (09:01→21:11)
[2021-06-16] MEDS: hydrALAZINE (APRESOLINE) 25 MG TAB PO SCH ×3 (09:02→21:11)
[2021-06-16] MEDS: PANTOPRAZOLE 40 MG (PROTONIX) TAB PO SCH (09:02)
[2021-06-16] MEDS: DIVALPROEX 250 MG DELAYED RELEASE (DEPAKOTE) TAB PO SCH ×2 (09:02→21:11)
[2021-06-16] MEDS: OXYBUTYNIN (DITROPAN) 5 MG TAB PO SCH ×2 (09:02→21:11)
[2021-06-16] MEDS: lisINopril 20 MG (PRINIVIL) TABLET PO SCH (09:02)
[2021-06-16] MEDS: CYANOCOBALAMIN 1,000 MCG (VITAMIN B-12) TABLET PO SCH (09:02)
[2021-06-16] MEDS: SENNOSIDES 8.6 MG (SENOKOT) TAB PO SCH ×2 (09:02→21:11)
[2021-06-16] MEDS: FOLIC ACID 1 MG TAB PO SCH (09:02)
[2021-06-16] MEDS: amLODIPine 5 MG (NORVASC) TAB PO SCH (09:02)
[2021-06-16] MEDS: VITAMIN D3 25 MCG (1,000 UNITS) TABLET PO SCH (09:02)
[2021-06-16] MEDS: LOSARTAN 100 MG (COZAAR) TABLET PO SCH (09:02)
[2021-06-16] MEDS: ATENOLOL 50 MG (TENORMIN) TAB PO SCH ×2 (09:02→21:11)
[2021-06-16] MEDS: FUROSEMIDE 40 MG (LASIX) TAB PO SCH (09:02)
--- NOTE | 2021-06-16 11:46 | Physical Therapy Daily Note ---
PT Daily Note-Current Subjective Patient minimally more verbal today. Able to say she doesn't have any pain and agrees to treatment. Mental Status Attachments: Oxygen, Gross Catheter, IV Transfers SCALE: Activities may be completed with or without assistive devices. 1-Ygoyvpjpqw-btnxfmm completes the activity by him/herself with no assistance from a helper. 5-Set-up or Clean-up Assistance-helper sets up or cleans up; patient completes activity. [place] assists only prior to or following the activity. 4-Supervision or Touching Assistance-helper provides verbal cues and/or touching/steadying and/or contact guard assistance as patient completes activity. Assistance may be provided throughout the activity or intermittently. 3-Partial/Moderate Assistance-helper does LESS THAN HALF the effort. [place] lifts, holds or supports trunk or limbs, but provides less than half the effort. 2-Substantial/Maximal Assistance-helper does MORE THAN HALF the effort. [place] lifts or holds trunk or limbs and provides more than half the effort. 5-Uisovutjp-dotgam does ALL the effort. Patient does none of the effort to complete the activity. Or, the assistance of 2 or more helpers is required for the patient to complete the activity. If activity was not attempted, code reason: 7-Patient Refused. 9-Not Applicable-not attempted and the patient did not perform the activity before the current illness, exacerbation or injury. 10-Not Attempted due to Environmental Limitations-(lack of equipment, weather restraints, etc.). 88-Not Attempted due to Medical Conditions or Safety Concerns. Roll Left & Right (QC): 3 Sit to Lying (QC): 3 Lying to Sitting/Side of Bed(Q: 3 Sit to Stand (QC): 3 Weight Bearing Right Lower Extremity: Right Weight Bearing/Tolerated Left Lower Extremity: Left Weight Bearing/Tolerated Gait Training Does the Patient Walk?: No and Walking Goal IS indicated Exercises Supine Ex: Ankle pumps, Quad Set, Heel Slides, Straight leg raise, Hip abd/add Supine Reps: 20 Assessment Current Status: Fair Progress Patient tolerated treatment fair. Demonstrates improved alertness and minimal improvement in tolerance to activity. Patient performs BLE therapeutic exercise of AAROM/PROM as listed above. Requires min A for all bed mobility and transfers. Patient able to sit at edge of bed x 5 minutes. Patient performs sit to stand and 3-4 sidesteps with mod A. Patient in bed post treatment with all needs met, nursing notified, call light in reach and bed alarm activated. PT Short Term Goals Short Term Goals Time Frame: Jun 26, 2021 Roll Left & Right: 4 Sit to lyin Lying to sitting on side of be: 4 Sit to stand: 4 Chair/uhl-hw-gtzvv transfer: 4 Toilet transfer: 4 PT Sap Portal Consultant Goals Skilled Nursing Goals PT Sap Portal Consultant Goals Time Frame: Jul 07, 2021 Roll Left & Right (QC): 6 Sit to Lying (QC): 6 Lying-Sitting on Side/Bed(QC): 6 Sit to Stand (QC): 6 Chair/Epw-cq-Pomhf Xfer(QC): 6 Toilet Transfer (QC): 6 Does the Patient Walk: Yes Walk 10 feet (QC): 4 Walk 50ft with 2 Turns (QC): 4 Walk 150 ft (QC): 4 PT Plan Treatment/Plan Treatment Plan: Continue Plan of Care Treatment Plan: Bed Mobility, Education, Functional Activity Kody, Functional Strength, Group Therapy, Gait, Safety, Therapeutic Exercise, Transfers Treatment Duration: Jul 27, 2021 Frequency: 6 times per week Estimated Hrs Per Day: .25 hour per day Patient and/or Family Agrees t: Yes Safety Risks/Education Patient Education: Transfer Techniques Teaching Recipient: Patient Teaching Methods: Demonstration, Discussion Response to Teaching: Reinforcement Needed Time/GCodes Time In: 914 Time Out: 940 Total Billed Treatment Time: 26 Total Billed Treatment Visit, Ex, BURAK VARGAS PT Jun 16, 2021 11:46
[2021-06-16 11:59] VITALS: BP 153/67
--- NOTE | 2021-06-16 13:11 | Occ Therapy Progress Note ---
Therapy Progress Note OT Tx attempted, pt unable to follow commands/answer questions at this time. Pt unable to make fist or squeeze OT's fingers. OT attempted AAROM/PROM, but pt resisted all movement and winces in pain. At one point, pt able to state "it hurts" but unable to answer question when OT asked where her pain was located. OT attempted PROM BUE shoulders, elbows, wrists and fingers, but pt winced with all movements, all planes. No skilled OT tx able to be complete at this time, nursing staff aware. OT will attempt again Saturday06/26/21. MIMI GATES OT Jun 16, 2021 13:11
[2021-06-16] MEDS: cefTRIAXone 1 GM PRE-MIX 50 ML IV SCH (16:01)
[2021-06-16] MEDS: RIVAROXABAN 20 MG TABLET (XARELTO) PO SCH (16:02)
[2021-06-16 16:08] VITALS: BP 144/70
[2021-06-16 19:48] VITALS: BP 129/71
[2021-06-16] MEDS: CALCIUM CARBONATE 500 MG (TUMS) TAB.CHEW PO SCH (20:29)
[2021-06-16] MEDS: LORATADINE (CLARITIN) 10 MG TAB PO SCH (21:11)
[2021-06-16 23:39] VITALS: BP 148/67
[2021-06-17] VITALS (7 sets, daily range): BP systolic 124–150; BP diastolic 60–81
[2021-06-17] MEDS: inSUlin ASPART (NovoLOG) 1 UNIT/0.01 ML (CHARGE PER UNIT) SC SCH ×4 (05:07→20:57)
[2021-06-17 06:15] LABS: BASOPHILS % (AUTO) 0 % (0-10); EOSINOPHILS % (AUTO) 0 % (0-10); HEMATOCRIT 34 % (35-52); HEMOGLOBIN 10.9 g/dL (11.5-16.0); LYMPHOCYTES # (AUTO) 0.8 10^3/uL (1.0-4.0); LYMPHOCYTES % (AUTO) 16 % (12-44); MEAN CORPUSCULAR HEMOGLOBIN 29 pg (25-34); MEAN CORPUSCULAR HGB CONC 33 g/dL (32-36); MEAN CORPUSCULAR VOLUME 90 fL (80-99); MEAN PLATELET VOLUME 10.8 fL (9.0-12.2); MONOCYTES # (AUTO) 0.2 10^3/uL (0.0-1.0); MONOCYTES % (AUTO) 5 % (0-12); NEUTROPHILS # (AUTO) 4.1 10^3/uL (1.8-7.8); NEUTROPHILS % (AUTO) 79 % (42-75); PLATELET COUNT 156 10^3/uL (130-400); WHITE BLOOD COUNT 5.2 10^3/uL (4.3-11.0)
[2021-06-17 06:23] LABS: ALBUMIN 2.6 GM/DL (3.2-4.5)
[2021-06-17 06:24] LABS: POTASSIUM 3.1 MMOL/L (3.6-5.0)
[2021-06-17 06:25] LABS: CALCIUM 8.3 MG/DL (8.5-10.1)
[2021-06-17 06:26] LABS: TOTAL PROTEIN 5.4 GM/DL (6.4-8.2)
[2021-06-17 06:28] LABS: BILIRUBIN,TOTAL 0.3 MG/DL (0.1-1.0)
[2021-06-17 06:30] LABS: CREATININE SERUM 0.71 MG/DL (0.60-1.30)
--- NOTE | 2021-06-17 06:34 | Progress Note - Hospitalist ---
Subjective HPI/CC On Admission Date Seen by Provider: Jun 17, 2021 Time Seen by Provider: 11:30 CC: Altered mental status HPI: 71 yr old [facility] clinic pt of [facility] and Dr. Oakley cardiology who presents to the ER with altered mental status and unable to really even verbalize. She was diagnosed with Covid-19 pneumonia, placed on appropriate medication, and Dr. Oakley will see her in consultation. She does have a significant murmur. She is very lethargic and doesn't open her eyes during my exam. Subjective/Events-last exam Patient doing a little better confusion noted Check meds labs No falls Patient sleeping currently Review of Systems Neurological: Confusion Objective Exam Vital Signs Vital Signs Date Time Temp Pulse Resp B/P (MAP) Pulse Ox O2 Delivery O2 Flow Rate FiO2 06/18/21 03:31 37.0 109 20 132/73 (92) 94 Nasal Cannula 3.00 06/15/21 15:16 28 Capillary Refill : General Appearance: No Apparent Distress, WD/WN, Chronically ill Respiratory: Lungs Clear, Normal Breath Sounds Cardiovascular: Regular Rate, Rhythm Results/Procedures Lab Laboratory Tests 06/18/21 04:45 Patient resulted labs reviewed. Assessment/Plan Assessment and Plan Assess & Plan/Chief Complaint Assessment: Acute encephalopathy COVID-19 UTI Diabetes Dementia Cardiac murmur Hypertension severe Hyperlipidemia Insomnia Atrial fibrillation Plan: Supportive care Monitor oxygen Cardiology consultation 06/14/2021: Supportive care UTI treatment COVID-19 management 06/15/2021: Encephalopathy resolving Appreciate cardiology 06/16/2021: Encephalopathy resolving 06/17/2021: Supportive care Diagnosis/Problems Diagnosis/Problems (1) Acute encephalopathy (2) Murmur (3) Malignant hypertension (4) Dementia (5) COVID-19 virus infection Status: Acute LEONORA JONES DO Jun 17, 2021 06:34
[2021-06-17] MEDS: amLODIPine 5 MG (NORVASC) TAB PO SCH (09:08)
[2021-06-17] MEDS: ATENOLOL 50 MG (TENORMIN) TAB PO SCH ×2 (09:09→21:21)
[2021-06-17] MEDS: CYANOCOBALAMIN 1,000 MCG (VITAMIN B-12) TABLET PO SCH (09:09)
[2021-06-17] MEDS: PANTOPRAZOLE 40 MG (PROTONIX) TAB PO SCH (09:09)
[2021-06-17] MEDS: DOCUSATE SODIUM 100 MG (COLACE) CAP PO SCH ×2 (09:09→19:29)
[2021-06-17] MEDS: OXYBUTYNIN (DITROPAN) 5 MG TAB PO SCH ×2 (09:09→21:21)
[2021-06-17] MEDS: LOSARTAN 100 MG (COZAAR) TABLET PO SCH (09:09)
[2021-06-17] MEDS: KCL 10 MEQ TAB (MICRO K) PO SCH ×3 (09:09→21:21)
[2021-06-17] MEDS: FOLIC ACID 1 MG TAB PO SCH (09:09)
[2021-06-17] MEDS: FUROSEMIDE 40 MG (LASIX) TAB PO SCH (09:09)
[2021-06-17] MEDS: lisINopril 20 MG (PRINIVIL) TABLET PO SCH (09:09)
[2021-06-17] MEDS: VITAMIN D3 25 MCG (1,000 UNITS) TABLET PO SCH (09:09)
[2021-06-17] MEDS: DIVALPROEX 250 MG DELAYED RELEASE (DEPAKOTE) TAB PO SCH ×2 (09:09→21:21)
[2021-06-17] MEDS: hydrALAZINE (APRESOLINE) 25 MG TAB PO SCH ×4 (09:09→21:21)
[2021-06-17] MEDS: SENNOSIDES 8.6 MG (SENOKOT) TAB PO SCH ×2 (09:10→19:30)
--- NOTE | 2021-06-17 11:51 | Physical Therapy Daily Note ---
PT Daily Note-Current Subjective Patient in bed pre tx, will open her eyes but doesn't communicate at all, she does say ouch occasionally with movement. Appearance Patient in bed post tx with nurse call, phone, tray, all needs met, bed alarm on. Mental Status Patient Orientation: Confused, Non-Verbal/Aphasic Attachments: Gross Catheter Transfers SCALE: Activities may be completed with or without assistive devices. 3-Wvfelaafih-iwwsxzh completes the activity by him/herself with no assistance from a helper. 5-Set-up or Clean-up Assistance-helper sets up or cleans up; patient completes activity. [place] assists only prior to or following the activity. 4-Supervision or Touching Assistance-helper provides verbal cues and/or touching/steadying and/or contact guard assistance as patient completes activity. Assistance may be provided throughout the activity or intermittently. 3-Partial/Moderate Assistance-helper does LESS THAN HALF the effort. [place] lifts, holds or supports trunk or limbs, but provides less than half the effort. 2-Substantial/Maximal Assistance-helper does MORE THAN HALF the effort. [place] lifts or holds trunk or limbs and provides more than half the effort. 4-Judgjyxnt-otpbpd does ALL the effort. Patient does none of the effort to complete the activity. Or, the assistance of 2 or more helpers is required for the patient to complete the activity. If activity was not attempted, code reason: 7-Patient Refused. 9-Not Applicable-not attempted and the patient did not perform the activity before the current illness, exacerbation or injury. 10-Not Attempted due to Environmental Limitations-(lack of equipment, weather restraints, etc.). 88-Not Attempted due to Medical Conditions or Safety Concerns. Roll Left & Right (QC): 1 Sit to Lying (QC): 1 Lying to Sitting/Side of Bed(Q: 1 Totally dependent to sit to the side of the bed, she cannot sit on her own, persistently trying to lay down, attempted to stand but couldn't. Patient did not participate or move on her own at all. Weight Bearing Right Lower Extremity: Right Weight Bearing/Tolerated Left Lower Extremity: Left Weight Bearing/Tolerated Treatments sitting Assessment Current Status: Poor Progress no patient participation PT Short Term Goals Short Term Goals Time Frame: Jun 26, 2021 Roll Left & Right: 4 Sit to lyin Lying to sitting on side of be: 4 Sit to stand: 4 Chair/mhl-sm-jqupp transfer: 4 Toilet transfer: 4 PT Nursing Home Goals Rn Eligibility Goals PT Nursing Home Goals Time Frame: Jul 07, 2021 Roll Left & Right (QC): 6 Sit to Lying (QC): 6 Lying-Sitting on Side/Bed(QC): 6 Sit to Stand (QC): 6 Chair/Hmc-yo-Cjeie Xfer(QC): 6 Toilet Transfer (QC): 6 Does the Patient Walk: Yes Walk 10 feet (QC): 4 Walk 50ft with 2 Turns (QC): 4 Walk 150 ft (QC): 4 PT Plan Problem List Problem List: Activity Tolerance, Functional Strength, Safety, Balance, Gait, Transfer, Bed Mobility, ROM Treatment/Plan Treatment Plan: Continue Plan of Care Treatment Plan: Bed Mobility, Education, Functional Activity Kody, Functional Strength, Group Therapy, Gait, Safety, Therapeutic Exercise, Transfers Treatment Duration: Jul 27, 2021 Frequency: 6 times per week Estimated Hrs Per Day: .25 hour per day Patient and/or Family Agrees t: Yes Safety Risks/Education Patient Education: Correct Positioning, Safety Issues Teaching Recipient: Patient Teaching Methods: Demonstration, Discussion Response to Teaching: Reinforcement Needed Time/GCodes Time In: 1121 Time Out: 1131 Total Billed Treatment Time: 10 Total Billed Treatment 1 visit FA CALIN SPAULDING PT Jun 17, 2021 11:51
[2021-06-17] MEDS: RIVAROXABAN 20 MG TABLET (XARELTO) PO SCH (16:54)
[2021-06-17] MEDS: LORATADINE (CLARITIN) 10 MG TAB PO SCH (21:21)
[2021-06-17] MEDS: CALCIUM CARBONATE 500 MG (TUMS) TAB.CHEW PO SCH (21:34)
[2021-06-18 03:31] VITALS: BP 132/73
[2021-06-18 05:29] LABS: BASOPHILS % (AUTO) 0 % (0-10); EOSINOPHILS % (AUTO) 0 % (0-10); HEMATOCRIT 35 % (35-52); HEMOGLOBIN 11.1 g/dL (11.5-16.0); LYMPHOCYTES # (AUTO) 0.6 10^3/uL (1.0-4.0); LYMPHOCYTES % (AUTO) 13 % (12-44); MEAN CORPUSCULAR HEMOGLOBIN 29 pg (25-34); MEAN CORPUSCULAR HGB CONC 32 g/dL (32-36); MEAN CORPUSCULAR VOLUME 89 fL (80-99); MEAN PLATELET VOLUME 11.4 fL (9.0-12.2); MONOCYTES # (AUTO) 0.2 10^3/uL (0.0-1.0); MONOCYTES % (AUTO) 4 % (0-12); NEUTROPHILS # (AUTO) 4.2 10^3/uL (1.8-7.8); NEUTROPHILS % (AUTO) 82 % (42-75); PLATELET COUNT 148 10^3/uL (130-400); WHITE BLOOD COUNT 5.1 10^3/uL (4.3-11.0)
[2021-06-18] MEDS: inSUlin ASPART (NovoLOG) 1 UNIT/0.01 ML (CHARGE PER UNIT) SC SCH ×4 (05:34→20:48)
[2021-06-18 05:40] LABS: ALBUMIN 2.5 GM/DL (3.2-4.5); POTASSIUM 3.6 MMOL/L (3.6-5.0)
[2021-06-18 05:41] LABS: CALCIUM 8.3 MG/DL (8.5-10.1)
[2021-06-18 05:43] LABS: TOTAL PROTEIN 5.4 GM/DL (6.4-8.2)
[2021-06-18 05:44] LABS: BILIRUBIN,TOTAL 0.4 MG/DL (0.1-1.0)
[2021-06-18 05:46] LABS: CREATININE SERUM 0.72 MG/DL (0.60-1.30)
--- NOTE | 2021-06-18 07:45 | Progress Note - Hospitalist ---
Subjective HPI/CC On Admission Date Seen by Provider: Jun 18, 2021 Time Seen by Provider: 10:00 CC: Altered mental status HPI: 71 yr old WF clinic pt of [facility] and Dr. Oakley cardiology who presents to the ER with altered mental status and unable to really even verbalize. She was diagnosed with Covid-19 pneumonia, placed on appropriate medication, and Dr. Oakley will see her in consultation. She does have a significant murmur. She is very lethargic and doesn't open her eyes during my exam. Subjective/Events-last exam Patient not too alert today No pain is reported Refusing meds Reviewed two eat Review of Systems Neurological: Confusion Objective Exam Vital Signs Vital Signs Date Time Temp Pulse Resp B/P (MAP) Pulse Ox O2 Delivery O2 Flow Rate FiO2 06/18/21 12:00 35.6 116 22 138/64 (88) 96 Nasal Cannula 3.00 06/15/21 15:16 28 Capillary Refill : General Appearance: No Apparent Distress, WD/WN, Chronically ill Respiratory: Lungs Clear, Normal Breath Sounds Cardiovascular: Regular Rate, Rhythm Neurologic/Psychiatric: Disoriented Results/Procedures Lab Laboratory Tests 06/18/21 04:45 Patient resulted labs reviewed. Assessment/Plan Assessment and Plan Assess & Plan/Chief Complaint Assessment: Acute encephalopathy COVID-19 UTI Diabetes Dementia Cardiac murmur Hypertension severe Hyperlipidemia Insomnia Atrial fibrillation Plan: Supportive care Monitor oxygen Cardiology consultation 06/14/2021: Supportive care UTI treatment COVID-19 management 06/15/2021: Encephalopathy resolving Appreciate cardiology 06/16/2021: Encephalopathy resolving 06/17/2021: Supportive care 06/18/2021: Needs mcfp Long-term prognosis poor Diagnosis/Problems Diagnosis/Problems (1) Acute encephalopathy (2) Murmur (3) Malignant hypertension (4) Dementia (5) COVID-19 virus infection Status: Acute LEONORA JONES DO Jun 18, 2021 07:45
[2021-06-18 07:49] VITALS: BP 132/73
[2021-06-18 08:00] VITALS: BP 169/87
[2021-06-18] MEDS: hydrALAZINE (APRESOLINE) 25 MG TAB PO SCH ×4 (09:35→21:25)
[2021-06-18] MEDS: ATENOLOL 50 MG (TENORMIN) TAB PO SCH ×3 (09:35→21:25)
[2021-06-18] MEDS: PANTOPRAZOLE 40 MG (PROTONIX) TAB PO SCH ×2 (09:36→10:02)
[2021-06-18] MEDS: lisINopril 20 MG (PRINIVIL) TABLET PO SCH ×2 (09:36→10:04)
[2021-06-18] MEDS: DIVALPROEX 250 MG DELAYED RELEASE (DEPAKOTE) TAB PO SCH ×3 (09:36→21:25)
[2021-06-18] MEDS: VITAMIN D3 25 MCG (1,000 UNITS) TABLET PO SCH ×2 (09:36→10:03)
[2021-06-18] MEDS: amLODIPine 5 MG (NORVASC) TAB PO SCH ×2 (09:36→10:02)
[2021-06-18] MEDS: DOCUSATE SODIUM 100 MG (COLACE) CAP PO SCH ×2 (09:36→19:49)
[2021-06-18] MEDS: FUROSEMIDE 40 MG (LASIX) TAB PO SCH ×2 (09:36→10:02)
[2021-06-18] MEDS: KCL 10 MEQ TAB (MICRO K) PO SCH ×3 (09:36→21:39)
[2021-06-18] MEDS: FOLIC ACID 1 MG TAB PO SCH ×2 (09:36→10:02)
[2021-06-18] MEDS: LOSARTAN 100 MG (COZAAR) TABLET PO SCH ×2 (09:36→10:02)
[2021-06-18] MEDS: CYANOCOBALAMIN 1,000 MCG (VITAMIN B-12) TABLET PO SCH ×2 (09:36→10:03)
[2021-06-18] MEDS: OXYBUTYNIN (DITROPAN) 5 MG TAB PO SCH ×3 (09:36→21:25)
[2021-06-18] MEDS: SENNOSIDES 8.6 MG (SENOKOT) TAB PO SCH ×2 (09:37→19:49)
[2021-06-18 12:00] VITALS: BP 138/64
[2021-06-18 16:32] VITALS: BP 153/75
[2021-06-18] MEDS: RIVAROXABAN 20 MG TABLET (XARELTO) PO SCH (17:54)
[2021-06-18] MEDS: CALCIUM CARBONATE 500 MG (TUMS) TAB.CHEW PO SCH (19:49)
[2021-06-18 20:33] VITALS: BP 169/108
[2021-06-18] MEDS: LORATADINE (CLARITIN) 10 MG TAB PO SCH (21:39)
[2021-06-19] VITALS (7 sets, daily range): BP systolic 111–130; BP diastolic 55–73
[2021-06-19 06:27] LABS: BASOPHILS % (AUTO) 0 % (0-10); EOSINOPHILS % (AUTO) 0 % (0-10); HEMATOCRIT 36 % (35-52); HEMOGLOBIN 11.4 g/dL (11.5-16.0); LYMPHOCYTES # (AUTO) 0.7 10^3/uL (1.0-4.0); LYMPHOCYTES % (AUTO) 12 % (12-44); MEAN CORPUSCULAR HEMOGLOBIN 29 pg (25-34); MEAN CORPUSCULAR HGB CONC 32 g/dL (32-36); MEAN CORPUSCULAR VOLUME 90 fL (80-99); MEAN PLATELET VOLUME 11.4 fL (9.0-12.2); MONOCYTES # (AUTO) 0.2 10^3/uL (0.0-1.0); MONOCYTES % (AUTO) 3 % (0-12); NEUTROPHILS # (AUTO) 4.7 10^3/uL (1.8-7.8); NEUTROPHILS % (AUTO) 83 % (42-75); PLATELET COUNT 185 10^3/uL (130-400); WHITE BLOOD COUNT 5.7 10^3/uL (4.3-11.0)
[2021-06-19] MEDS: inSUlin ASPART (NovoLOG) 1 UNIT/0.01 ML (CHARGE PER UNIT) SC SCH ×4 (06:28→21:10)
[2021-06-19 06:41] LABS: ALBUMIN 2.5 GM/DL (3.2-4.5); POTASSIUM 3.6 MMOL/L (3.6-5.0)
[2021-06-19 06:42] LABS: CALCIUM 8.5 MG/DL (8.5-10.1)
[2021-06-19 06:43] LABS: TOTAL PROTEIN 5.7 GM/DL (6.4-8.2)
[2021-06-19 06:45] LABS: BILIRUBIN,TOTAL 0.4 MG/DL (0.1-1.0)
[2021-06-19 06:47] LABS: CREATININE SERUM 0.81 MG/DL (0.60-1.30)
[2021-06-19] MEDS: FUROSEMIDE 40 MG (LASIX) TAB PO SCH (09:47)
[2021-06-19] MEDS: CYANOCOBALAMIN 1,000 MCG (VITAMIN B-12) TABLET PO SCH (09:47)
[2021-06-19] MEDS: FOLIC ACID 1 MG TAB PO SCH (09:47)
[2021-06-19] MEDS: DIVALPROEX 250 MG DELAYED RELEASE (DEPAKOTE) TAB PO SCH ×2 (09:47→21:09)
[2021-06-19] MEDS: VITAMIN D3 25 MCG (1,000 UNITS) TABLET PO SCH (09:47)
[2021-06-19] MEDS: KCL 10 MEQ TAB (MICRO K) PO SCH ×2 (09:47→21:09)
[2021-06-19] MEDS: PANTOPRAZOLE 40 MG (PROTONIX) TAB PO SCH (09:47)
[2021-06-19] MEDS: ATENOLOL 50 MG (TENORMIN) TAB PO SCH ×2 (09:48→21:09)
[2021-06-19] MEDS: LOSARTAN 100 MG (COZAAR) TABLET PO SCH (09:48)
[2021-06-19] MEDS: OXYBUTYNIN (DITROPAN) 5 MG TAB PO SCH ×2 (09:48→21:09)
[2021-06-19] MEDS: DOCUSATE SODIUM 100 MG (COLACE) CAP PO SCH ×2 (10:00→21:49)
[2021-06-19] MEDS: lisINopril 20 MG (PRINIVIL) TABLET PO SCH (10:00)
[2021-06-19] MEDS: amLODIPine 5 MG (NORVASC) TAB PO SCH (10:00)
[2021-06-19] MEDS: hydrALAZINE (APRESOLINE) 25 MG TAB PO SCH ×3 (10:00→21:09)
[2021-06-19] MEDS: SENNOSIDES 8.6 MG (SENOKOT) TAB PO SCH ×2 (10:00→21:49)
--- NOTE | 2021-06-19 10:33 | Progress Note - Hospitalist ---
Subjective HPI/CC On Admission Date Seen by Provider: Jun 19, 2021 Time Seen by Provider: 11:00 CC: Altered mental status HPI: 71 yr old WF clinic pt of [facility] and Dr. Oakley cardiology who presents to the ER with altered mental status and unable to really even verbalize. She was diagnosed with Covid-19 pneumonia, placed on appropriate medication, and Dr. Oakley will see her in consultation. She does have a significant murmur. She is very lethargic and doesn't open her eyes during my exam. Subjective/Events-last exam Pt is doing a lot better Answering questions Checked meds and labs Pt doesn't move around much Refuses to lay on her side so sacral decubitus ulcer is likely going to be at risk Review of Systems General: Fatigue, Malaise Neurological: Confusion Objective Exam Vital Signs Vital Signs Date Time Temp Pulse Resp B/P (MAP) Pulse Ox O2 Delivery O2 Flow Rate FiO2 06/20/21 04:14 36.7 109 20 114/57 (76) 93 Nasal Cannula 3.50 06/15/21 15:16 28 Capillary Refill : General Appearance: No Apparent Distress, WD/WN, Chronically ill Respiratory: Lungs Clear, Normal Breath Sounds Cardiovascular: Regular Rate, Rhythm Neurologic/Psychiatric: Alert, Oriented x3 Results/Procedures Lab Laboratory Tests 06/19/21 06:08 Patient resulted labs reviewed. Assessment/Plan Assessment and Plan Assess & Plan/Chief Complaint Assessment: Acute encephalopathy COVID-19 UTI Diabetes Dementia Cardiac murmur Hypertension severe Hyperlipidemia Insomnia Atrial fibrillation Plan: Supportive care Monitor oxygen Cardiology consultation 06/14/2021: Supportive care UTI treatment COVID-19 management 06/15/2021: Encephalopathy resolving Appreciate cardiology 06/16/2021: Encephalopathy resolving 06/17/2021: Supportive care 06/18/2021: Needs half-way Long-term prognosis poor 06/19/21: Monitor closely Prognosis poor Diagnosis/Problems Diagnosis/Problems (1) Acute encephalopathy (2) Murmur (3) Malignant hypertension (4) Dementia (5) COVID-19 virus infection Status: Acute LEONORA JONES DO Jun 19, 2021 10:33
--- NOTE | 2021-06-19 12:10 | Cardiology Progress Note ---
Subjective Date Seen by Provider: Jun 19, 2021 Time Seen by Provider: 12:05 Subjective/Events-last exam Patient is in isolation due to Covid Has paroxysmal atrial fibrillation, rate is better controlled I was asked to evaluate the patient due to episode of hypotension and adjusting her medication. Did not examine the patient to limit the exposure to Covid Objective-Cardiology Exam Last Set of Vital Signs Vital Signs 06/15/21 06/19/21 06/19/21 06/19/21 15:16 07:30 09:51 09:57 Temp 36.5 Pulse 96 Resp 20 B/P (MAP) 119/58 (78) Pulse Ox 93 O2 Delivery Nasal Cannula O2 Flow Rate 3.00 FiO2 28 I&O Intake and Output 06/19/21 00:00 Intake Total 820 ml Output Total 925 ml Balance -105 ml Intake Oral 820 ml Output Urine Total 925 ml General: Alert, Cooperative HEENT: Atraumatic Heart: Other (Atrial fibrillation) Neuro: Normal Speech Results Lab Laboratory Tests 06/19/21 06:08 A/P-Cardiology Admission Diagnosis Paroxysmal atrial fibrillation COVID-19 infection Hypertension Hyperlipidemia Assessment/Plan Paroxysmal atrial fibrillation, converted to sinus rhythm, has been in and out of atrial fibrillation. Rate is controlled, continue to monitor Maintained on Xarelto History of hypertension, currently borderline hypotensive maintained on amlodipine 10 mg daily, clonidine as needed, hydralazine 50 mg 3 times daily, atenolol 50 mg twice daily, lisinopril 40 mg daily. I will stop amlodipine and continue with parameter monitoring blood pressure closely. Hyperlipidemia, monitor lipids History of aortic valve sclerosis. COVID-19 pneumonia. MARINO GARCIA MD Jun 19, 2021 12:10
--- NOTE | 2021-06-19 14:27 | Occupational Ther Daily Note ---
OT Current Status-Daily Note Subjective Pt lying in bed. Pt would not look at TAYLOR or answer questions initially. Took over feeding pt from nrsg. Mental Status/Objective Patient Orientation: Person, Unable to Assess, Non-Verbal/Aphasic, Eyes Open Attachments: Gross Catheter, IV ADL-Treatment Pt is a feeder. Pt will open mouth to be fed though will not initiate any movement toward spoon. Pt spontaneously reached and held onto protein drink and brought to the vicinity of mouth then TAYLOR assisted placing straw in mouth, 1x. Attempted to have pt hold onto spoon and bring to mouth, light grasp and [place] to bring to mouth then food fell off of spoon prior to getting to mouth. Pt would not choose between food or drink. When pt did not want anymore she would close mouth and would not open. 1x pt shook head no, 1x pt said no to food or drink. Pt then stated that she needed to use the bathroom. Questioned nrsg what pt used to toilet, nrsg stated that pt had not ever stated that she needed to go and was typically incontinent. Pt then pointed to the bathroom. Due to decreased mobility, nrsg brought bedpan. TAYLOR attempted to have pt use bedpan, pt adamantly declined. When TAYLOR asked if pt needed to urinate or a BM, pt would not answer and stare off into space. Pt does have a Gross catheter. Pt is a feeder, dependent for bathing, dressing and toileting. Pt has not participated in skilled therapy. Nrsg alerted to pt's position. Pt is lying in bed with call light/phone in reach. All needs met. OT to discharge pt at this time. New orders will be needed when pt is medically stable and able to actively participate in skilled therapy. Therapy Code Descriptions/Definitions Functional [place] Measure: 0=Not Assessed/NA 4=Minimal Assistance 1=Total Assistance 5=Supervision or Setup 2=Maximal Assistance 6=Modified [place] 3=Moderate Assistance 7=Complete IndependenceSCALE: Activities may be completed with or without assistive devices. 8-Jnwnqwjluz-donkryk completes the activity by him/herself with no assistance from a helper. 5-Set-up or Clean-up Assistance-helper sets up or cleans up; patient completes activity. [place] assists only prior to or following the activity. 4-Supervision or Touching Assistance-helper provides verbal cues and/or touching/steadying and/or contact guard assistance as patient completes activity. Assistance may be provided throughout the activity or intermittently. 3-Partial/Moderate Assistance-helper does LESS THAN HALF the effort. [place] lifts, holds or supports trunk or limbs, but provides less than half the effort. 2-Substantial/Maximal Assistance-helper does MORE THAN HALF the effort. [place] lifts or holds trunk or limbs and provides more than half the effort. 6-Teojqusdw-npvcsr does ALL the effort. Patient does none of the effort to complete the activity. Or, the assistance of 2 or more helpers is required for the patient to complete the activity. If activity was not attempted, code reason: 7-Patient Refused. 9-Not Applicable-not attempted and the patient did not perform the activity before the current illness, exacerbation or injury. 10-Not Attempted due to Environmental Limitations-(lack of equipment, weather restraints, etc.). 88-Not Attempted due to Medical Conditions or Safety Concerns. OT Short Term Goals Short Term Goals Time Frame: Jun 29, 2021 Eatin Oral hygiene: 3 Toileting hygiene: 3 Upper body dressin OT Sider Goals Detention Goals Time Frame: Jul 13, 2021 Eating (QC): 5 Oral Hygiene (QC): 5 Toileting Hygiene (QC): 4 Shower/Bathe Self (QC): 3 Upper Body Dressing (QC): 4 Lower Body Dressing (QC): 3 On/Off Footwear (QC): 3 All ADLs with AE as needed. Additional Goals: 1-Demonstrate ADL Tasks, 2-Verbalize Understanding, 3-ImproveStrength/Kody 1=Demonstrate adherence to instructed precautions during ADL tasks. 2=Patient will verbalize/demonstrate understanding of assistive devices/modifications for ADL. 3=Patient will improve strength/tolerance for activity to enable patient to perform ADL's. OT Education/Plan Discharge Recommendations Plan/Recommendations: Discharge/Goals Met (OT to discharge pt at this time. New orders will be needed when pt is medically stable and able to actively participate in skilled therapy.) Treatment Plan/Plan of Care Patient would benefit from OT for education, treatment and training to promote independence in ADL's, mobility, safety and/or upper extremity function for ADL's. Plan of Care: ADL Retraining, Functional Mobility, UE Funct Exercise/Act Treatment Duration: Jul 13, 2021 Frequency: 3 times per week (3-5x per week) Estimated Hrs Per Day: .25 hour per day Agreement: Yes Rehab Potential: Fair Time/GCodes Start Time: 13:15 Stop Time: 13:44 Total Time Billed (hr/min): 29 Billed Treatment Time 1 visit-ADL 2 (29 min) GIO MCINTOSH Jun 19, 2021 14:26
--- NOTE | 2021-06-19 14:53 | Physical Therapy Daily Note ---
PT Daily Note-Current Subjective Patient in bed pre tx, opens eyes but wont follow directions or communicate. Appearance Patient in bed post tx with nurse call, phone, tray, all needs met, bed alarm on . Mental Status Patient Orientation: Unable to Assess Transfers SCALE: Activities may be completed with or without assistive devices. 6-Nzghhzkfqo-edjozuu completes the activity by him/herself with no assistance from a helper. 5-Set-up or Clean-up Assistance-helper sets up or cleans up; patient completes activity. [place] assists only prior to or following the activity. 4-Supervision or Touching Assistance-helper provides verbal cues and/or touching/steadying and/or contact guard assistance as patient completes activity. Assistance may be provided throughout the activity or intermittently. 3-Partial/Moderate Assistance-helper does LESS THAN HALF the effort. [place] lifts, holds or supports trunk or limbs, but provides less than half the effort. 2-Substantial/Maximal Assistance-helper does MORE THAN HALF the effort. [place] lifts or holds trunk or limbs and provides more than half the effort. 0-Dwzvmyhxk-oyfovl does ALL the effort. Patient does none of the effort to complete the activity. Or, the assistance of 2 or more helpers is required for the patient to complete the activity. If activity was not attempted, code reason: 7-Patient Refused. 9-Not Applicable-not attempted and the patient did not perform the activity before the current illness, exacerbation or injury. 10-Not Attempted due to Environmental Limitations-(lack of equipment, weather restraints, etc.). 88-Not Attempted due to Medical Conditions or Safety Concerns. Roll Left & Right (QC): 1 Sit to Lying (QC): 1 Lying to Sitting/Side of Bed(Q: 1 Patient dependent with supine <-> sit and she sits for a few minutes but is dependent for sitting balance, she will not perform LE exercises. Weight Bearing Right Lower Extremity: Right Weight Bearing/Tolerated Left Lower Extremity: Left Weight Bearing/Tolerated Treatments bed mobility, sitting Assessment Current Status: Poor Progress dependent for mobility, will not communicate or follow directions, she does say "ouch" occasionally. PT Short Term Goals Short Term Goals Time Frame: Jun 26, 2021 Roll Left & Right: 4 Sit to lyin Lying to sitting on side of be: 4 Sit to stand: 4 Chair/ebw-wk-gqalv transfer: 4 Toilet transfer: 4 PT Office Service Coordinator Goals Office Service Coordinator Goals PT Intermediate Goals Time Frame: Jul 07, 2021 Roll Left & Right (QC): 6 Sit to Lying (QC): 6 Lying-Sitting on Side/Bed(QC): 6 Sit to Stand (QC): 6 Chair/Qmq-me-Kesnl Xfer(QC): 6 Toilet Transfer (QC): 6 Does the Patient Walk: Yes Walk 10 feet (QC): 4 Walk 50ft with 2 Turns (QC): 4 Walk 150 ft (QC): 4 PT Plan Problem List Problem List: Activity Tolerance, Functional Strength, Safety, Balance, Gait, Transfer, Bed Mobility, ROM Treatment/Plan Treatment Plan: Continue Plan of Care Treatment Plan: Bed Mobility, Education, Functional Activity Kody, Functional Strength, Group Therapy, Gait, Safety, Therapeutic Exercise, Transfers Treatment Duration: Jul 27, 2021 Frequency: 6 times per week Estimated Hrs Per Day: .25 hour per day Patient and/or Family Agrees t: Yes Safety Risks/Education Patient Education: Correct Positioning, Safety Issues Teaching Recipient: Patient Teaching Methods: Demonstration, Discussion Response to Teaching: Reinforcement Needed Time/GCodes Time In: 1433 Time Out: 1443 Total Billed Treatment Time: 10 Total Billed Treatment 1 visit FA CALIN SPAULDING PT Jun 19, 2021 14:53
[2021-06-19] MEDS: RIVAROXABAN 20 MG TABLET (XARELTO) PO SCH (17:05)
[2021-06-19] MEDS: LORATADINE (CLARITIN) 10 MG TAB PO SCH (21:09)
[2021-06-19] MEDS: CALCIUM CARBONATE 500 MG (TUMS) TAB.CHEW PO SCH (21:49)
[2021-06-20] VITALS (8 sets, daily range): BP systolic 114–155; BP diastolic 57–71
[2021-06-20 05:38] LABS: BASOPHILS % (AUTO) 0 % (0-10); EOSINOPHILS % (AUTO) 1 % (0-10); HEMATOCRIT 34 % (35-52); HEMOGLOBIN 10.8 g/dL (11.5-16.0); LYMPHOCYTES # (AUTO) 0.8 10^3/uL (1.0-4.0); LYMPHOCYTES % (AUTO) 14 % (12-44); MEAN CORPUSCULAR HEMOGLOBIN 29 pg (25-34); MEAN CORPUSCULAR HGB CONC 32 g/dL (32-36); MEAN CORPUSCULAR VOLUME 90 fL (80-99); MEAN PLATELET VOLUME 11.6 fL (9.0-12.2); MONOCYTES # (AUTO) 0.2 10^3/uL (0.0-1.0); MONOCYTES % (AUTO) 3 % (0-12); NEUTROPHILS # (AUTO) 4.6 10^3/uL (1.8-7.8); NEUTROPHILS % (AUTO) 80 % (42-75); PLATELET COUNT 200 10^3/uL (130-400); WHITE BLOOD COUNT 5.8 10^3/uL (4.3-11.0)
[2021-06-20] MEDS: ACETAMINOPHEN 325 MG TABLET PO PRN (06:42)
[2021-06-20] MEDS: inSUlin ASPART (NovoLOG) 1 UNIT/0.01 ML (CHARGE PER UNIT) SC SCH ×4 (06:42→20:41)
[2021-06-20 08:58] LABS: ALBUMIN 2.2 GM/DL (3.2-4.5); BILIRUBIN,TOTAL 0.3 MG/DL (0.1-1.0); CALCIUM 8.3 MG/DL (8.5-10.1); CREATININE SERUM 0.79 MG/DL (0.60-1.30); POTASSIUM 3.7 MMOL/L (3.6-5.0); TOTAL PROTEIN 5.1 GM/DL (6.4-8.2)
[2021-06-20] MEDS ORDERED: LOSARTAN 25 MG (COZAAR) TAB PO SCH (09:00)
--- NOTE | 2021-06-20 09:02 | Cardiology Progress Note ---
Subjective Date Seen by Provider: Jun 20, 2021 Time Seen by Provider: 09:01 Subjective/Events-last exam Patient is laying down in bed, I did not examine the patient I reviewed the record and visited with the nurse and discussed the management plan Objective-Cardiology Exam Last Set of Vital Signs Vital Signs 06/15/21 06/20/21 15:16 07:38 Temp 36.8 Pulse 106 Resp 20 B/P (MAP) 125/61 (82) Pulse Ox 96 O2 Delivery Nasal Cannula O2 Flow Rate 3.50 FiO2 28 I&O Intake and Output 06/20/21 00:00 Intake Total 890 ml Output Total 725 ml Balance 165 ml Intake Oral 890 ml Output Urine Total 725 ml # Bowel Movements 2 General: Alert, Cooperative HEENT: Atraumatic Heart: Other (Atrial fibrillation) Neuro: Normal Speech Results Lab Laboratory Tests 06/20/21 05:23 06/20/21 08:06 A/P-Cardiology Admission Diagnosis Paroxysmal atrial fibrillation COVID-19 infection Hypertension Hyperlipidemia Assessment/Plan Paroxysmal atrial fibrillation, converted to sinus rhythm, has been in and out of atrial fibrillation. Rate is controlled, continue to monitor Maintained on Xarelto History of hypertension, blood pressure is better controlled. I added Cardizem CD 120 mg daily, discontinued hydralazine and losartan, continue on lisinopril 40 mg daily, atenolol 50 mg twice a day and using clonidine as needed and monitor tolerance and response. Hyperlipidemia, monitor lipids History of aortic valve sclerosis. COVID-19 pneumonia. MARINO GARCIA MD Jun 20, 2021 09:02
[2021-06-20] MEDS: FUROSEMIDE 40 MG (LASIX) TAB PO SCH (09:04)
[2021-06-20] MEDS: OXYBUTYNIN (DITROPAN) 5 MG TAB PO SCH ×2 (09:04→20:40)
[2021-06-20] MEDS: CYANOCOBALAMIN 1,000 MCG (VITAMIN B-12) TABLET PO SCH (09:04)
[2021-06-20] MEDS: lisINopril 20 MG (PRINIVIL) TABLET PO SCH (09:04)
[2021-06-20] MEDS: KCL 10 MEQ TAB (MICRO K) PO SCH ×2 (09:04→20:40)
[2021-06-20] MEDS: VITAMIN D3 25 MCG (1,000 UNITS) TABLET PO SCH (09:04)
[2021-06-20] MEDS: DIVALPROEX 250 MG DELAYED RELEASE (DEPAKOTE) TAB PO SCH ×2 (09:04→20:40)
[2021-06-20] MEDS: ATENOLOL 50 MG (TENORMIN) TAB PO SCH ×2 (09:04→20:40)
[2021-06-20] MEDS: dilTIAZem120 MG (CARDIZEM CD) CAP PO SCH (09:04)
[2021-06-20] MEDS: PANTOPRAZOLE 40 MG (PROTONIX) TAB PO SCH (09:04)
[2021-06-20] MEDS: DOCUSATE SODIUM 100 MG (COLACE) CAP PO SCH ×2 (09:05→20:41)
[2021-06-20] MEDS: hydrALAZINE (APRESOLINE) 25 MG TAB PO SCH ×3 (09:05→20:40)
[2021-06-20] MEDS: FOLIC ACID 1 MG TAB PO SCH (09:05)
[2021-06-20] MEDS: SENNOSIDES 8.6 MG (SENOKOT) TAB PO SCH ×2 (09:05→20:41)
--- NOTE | 2021-06-20 11:30 | Progress Note - Hospitalist ---
SUSAN MOTA 06/20/21 1130: Subjective HPI/CC On Admission Date Seen by Provider: Jun 20, 2021 Time Seen by Provider: 11:00 CC: Altered mental status HPI: 71 yr old WF clinic pt of [facility] and Dr. Oakley cardiology who presents to the ER with altered mental status and unable to really even verbalize. She was d iagnosed with Covid-19 pneumonia, placed on appropriate medication, and Dr. Oakley will see her in consultation. She does have a significant murmur. She is very lethargic and doesn't open her eyes during my exam. Subjective/Events-last exam Patient is laying in bed. She is unable to converse. I was not able to obtain a ROS. Objective Exam Vital Signs Vital Signs Date Time Temp Pulse Resp B/P (MAP) Pulse Ox O2 Delivery O2 Flow Rate FiO2 06/20/21 09:00 Nasal Cannula 3.50 06/20/21 07:38 36.8 106 20 125/61 (82) 96 06/15/21 15:16 28 Capillary Refill : General Appearance: Chronically ill HEENT: Other Neck: Normal Inspection Respiratory: Normal Breath Sounds, No Accessory Muscle Use Cardiovascular: Systolic Murmur, Irregularly Irregular Gastrointestinal: Normal Bowel Sounds, Non Tender, Soft Rectal: Deferred Extremity: Non Tender, Pedal Edema Skin: Ecchymosis Results/Procedures Lab Laboratory Tests 06/20/21 05:23 06/20/21 08:06 Patient resulted labs reviewed. Assessment/Plan Assessment and Plan Assess & Plan/Chief Complaint Acute Encephalopathy - Supportive care - likely secondary to UTI and COVID - depakote Diabetes - SSI - K replacement as needed Secondary HTN - CT Ab/Pelvis showed large adrenal mass - requiring multiple antihypertensives - cardiology managing BP Afib - Diltazam 120 - Xarelto - cardiology recs HLD - atorvastatin 20 ELMIRA MONTIEL DO 06/21/21 0520: Subjective Subjective/Events-last exam Pt is doing better Talking more and more alert Awaiting Covid isolation to resolve before residential placement Labs remain stable Adrenal mass discussed with student Review of Systems Neurological: Confusion Objective Exam General Appearance: No Apparent Distress, WD/WN, Chronically ill Respiratory: Normal Breath Sounds, No Accessory Muscle Use Cardiovascular: Systolic Murmur, Irregularly Irregular Assessment/Plan Assessment and Plan Assess & Plan/Chief Complaint Supportive care Anticoagulation Supervisory-Addendum Brief Verification & Attestation Participated in pt care: history, MDM, physical Personally performed: exam, history, MDM, supervision of care Care discussed with: Medical Student Procedures: n/a Results interpretation: Verified all documentation Verification and Attestation of Medical Student E/M Service A medical student performed and documented this service in my presence. I reviewed and verified all information documented by the medical student and made modifications to such information, when appropriate. I personally performed the physical exam and medical decision making. Elmira Montiel, Jun 21, 2021,05:19 SUSAN MOTA Jun 20, 2021 11:30 ELMIRA MONTIEL DO Jun 21, 2021 05:20
--- NOTE | 2021-06-20 11:53 | Physical Therapy Daily Note ---
PT Daily Note-Current Subjective Patient in bed pre tx, has eyes open but doesn't communicate. Appearance Patient in bed post tx with nurse call, phone, tray, bed alarm on, all needs met. Mental Status Patient Orientation: Unable to Assess Attachments: Oxygen, Gross Catheter Transfers SCALE: Activities may be completed with or without assistive devices. 2-Ixdsasbgsa-eadeonb completes the activity by him/herself with no assistance from a helper. 5-Set-up or Clean-up Assistance-helper sets up or cleans up; patient completes activity. [place] assists only prior to or following the activity. 4-Supervision or Touching Assistance-helper provides verbal cues and/or touching/steadying and/or contact guard assistance as patient completes activit y. Assistance may be provided throughout the activity or intermittently. 3-Partial/Moderate Assistance-helper does LESS THAN HALF the effort. [place] lifts, holds or supports trunk or limbs, but provides less than half the effort. 2-Substantial/Maximal Assistance-helper does MORE THAN HALF the effort. [place] lifts or holds trunk or limbs and provides more than half the effort. 4-Cwgjwvzdg-twblrp does ALL the effort. Patient does none of the effort to complete the activity. Or, the assistance of 2 or more helpers is required for the patient to complete the activity. If activity was not attempted, code reason: 7-Patient Refused. 9-Not Applicable-not attempted and the patient did not perform the activity before the current illness, exacerbation or injury. 10-Not Attempted due to Environmental Limitations-(lack of equipment, weather restraints, etc.). 88-Not Attempted due to Medical Conditions or Safety Concerns. During LE exercise it is discovered that patient has had a huge BM and there is a puddle between her legs. Nurse aide comes in to assist, patient has to roll from side to side a few times for cleaning and changing sheets, she does assist slightly when rolling to the left for the first time but none after that. Weight Bearing Right Lower Extremity: Right Weight Bearing/Tolerated Left Lower Extremity: Left Weight Bearing/Tolerated Exercises Supine Ex: Ankle pumps, Straight leg raise, Hip abd/add Supine Reps: 20 (Mostly PROM, patient does assist a bit with ankle pumps.) Treatments LE ROM and rolling Assessment Current Status: Poor Progress Patient participate little to none, doesn't communicate, will say "ouch" occasionally. PT Short Term Goals Short Term Goals Time Frame: Jun 26, 2021 Roll Left & Right: 4 Sit to lyin Lying to sitting on side of be: 4 Sit to stand: 4 Chair/efi-ma-rurvu transfer: 4 Toilet transfer: 4 PT Book Binder Goals Book Binder Goals PT Alf Goals Time Frame: Jul 07, 2021 Roll Left & Right (QC): 6 Sit to Lying (QC): 6 Lying-Sitting on Side/Bed(QC): 6 Sit to Stand (QC): 6 Chair/Tuy-pg-Ooxzs Xfer(QC): 6 Toilet Transfer (QC): 6 Does the Patient Walk: Yes Walk 10 feet (QC): 4 Walk 50ft with 2 Turns (QC): 4 Walk 150 ft (QC): 4 PT Plan Problem List Problem List: Activity Tolerance, Functional Strength, Safety, Balance, Gait, Transfer, Bed Mobility, ROM Treatment/Plan Treatment Plan: Continue Plan of Care Treatment Plan: Bed Mobility, Education, Functional Activity Kody, Functional Strength, Group Therapy, Gait, Safety, Therapeutic Exercise, Transfers Treatment Duration: Jul 27, 2021 Frequency: 6 times per week Estimated Hrs Per Day: .25 hour per day Patient and/or Family Agrees t: Yes Safety Risks/Education Patient Education: Correct Positioning, Safety Issues Teaching Recipient: Patient Teaching Methods: Demonstration, Discussion Response to Teaching: Reinforcement Needed Time/GCodes Time In: 1112 Time Out: 1142 Total Billed Treatment Time: 30 Total Billed Treatment 1 visit FA 30' CALIN CASTORENA PT Jun 20, 2021 11:53
[2021-06-20] MEDS: RIVAROXABAN 20 MG TABLET (XARELTO) PO SCH (16:22)
[2021-06-20] MEDS: LORATADINE (CLARITIN) 10 MG TAB PO SCH (20:40)
[2021-06-20] MEDS: CALCIUM CARBONATE 500 MG (TUMS) TAB.CHEW PO SCH (20:42)
[2021-06-21 03:14] VITALS: BP 127/66
[2021-06-21 06:16] LABS: BASOPHILS % (AUTO) 1 % (0-10); EOSINOPHILS % (AUTO) 1 % (0-10); HEMATOCRIT 33 % (35-52); HEMOGLOBIN 10.4 g/dL (11.5-16.0); LYMPHOCYTES % (AUTO) 19 % (12-44); MEAN CORPUSCULAR HEMOGLOBIN 29 pg (25-34); MEAN CORPUSCULAR HGB CONC 31 g/dL (32-36); MEAN CORPUSCULAR VOLUME 92 fL (80-99); MEAN PLATELET VOLUME 11.9 fL (9.0-12.2); MONOCYTES # (AUTO) 0.1 10^3/uL (0.0-1.0); MONOCYTES % (AUTO) 2 % (0-12); NEUTROPHILS # (AUTO) 3.7 10^3/uL (1.8-7.8); NEUTROPHILS % (AUTO) 74 % (42-75); PLATELET COUNT 216 10^3/uL (130-400)
[2021-06-21 06:17] LABS: ALBUMIN 2.3 GM/DL (3.2-4.5)
[2021-06-21 06:18] LABS: POTASSIUM 4.2 MMOL/L (3.6-5.0)
[2021-06-21 06:19] LABS: CALCIUM 8.9 MG/DL (8.5-10.1)
[2021-06-21 06:20] LABS: TOTAL PROTEIN 5.6 GM/DL (6.4-8.2)
[2021-06-21 06:22] LABS: BILIRUBIN,TOTAL 0.4 MG/DL (0.1-1.0)
[2021-06-21 06:24] LABS: CREATININE SERUM 0.71 MG/DL (0.60-1.30)
[2021-06-21] MEDS: inSUlin ASPART (NovoLOG) 1 UNIT/0.01 ML (CHARGE PER UNIT) SC SCH ×4 (06:32→20:27)
[2021-06-21 08:01] VITALS: BP 120/65
[2021-06-21] MEDS: hydrALAZINE (APRESOLINE) 25 MG TAB PO SCH ×3 (09:37→20:16)
[2021-06-21] MEDS: PANTOPRAZOLE 40 MG (PROTONIX) TAB PO SCH (09:38)
[2021-06-21] MEDS: KCL 10 MEQ TAB (MICRO K) PO SCH ×2 (09:38→20:16)
[2021-06-21] MEDS: FOLIC ACID 1 MG TAB PO SCH (09:38)
[2021-06-21] MEDS: lisINopril 20 MG (PRINIVIL) TABLET PO SCH (09:38)
[2021-06-21] MEDS: dilTIAZem120 MG (CARDIZEM CD) CAP PO SCH (09:38)
[2021-06-21] MEDS: ATENOLOL 50 MG (TENORMIN) TAB PO SCH ×2 (09:38→20:17)
[2021-06-21] MEDS: VITAMIN D3 25 MCG (1,000 UNITS) TABLET PO SCH (09:38)
[2021-06-21] MEDS: CYANOCOBALAMIN 1,000 MCG (VITAMIN B-12) TABLET PO SCH (09:38)
[2021-06-21] MEDS: FUROSEMIDE 40 MG (LASIX) TAB PO SCH (09:38)
[2021-06-21] MEDS: DIVALPROEX 250 MG DELAYED RELEASE (DEPAKOTE) TAB PO SCH ×2 (09:38→20:16)
[2021-06-21] MEDS: OXYBUTYNIN (DITROPAN) 5 MG TAB PO SCH ×2 (09:38→20:16)
[2021-06-21] MEDS: SENNOSIDES 8.6 MG (SENOKOT) TAB PO SCH ×2 (09:44→20:17)
[2021-06-21] MEDS: DOCUSATE SODIUM 100 MG (COLACE) CAP PO SCH ×2 (09:44→20:16)
--- NOTE | 2021-06-21 10:59 | Cardiology Progress Note ---
Subjective Date Seen by Provider: Jun 21, 2021 Time Seen by Provider: 10:58 Subjective/Events-last exam I did not examine patient today. Reviewed lab and records and discussed with nurse. No new complaints today. Blood pressure is better controlled. Objective-Cardiology Exam Last Set of Vital Signs Vital Signs 06/15/21 06/21/21 15:16 11:22 Temp 36.0 Pulse 93 Resp 18 B/P (MAP) 122/60 (80) Pulse Ox 92 O2 Delivery Nasal Cannula O2 Flow Rate 3.50 FiO2 28 I&O Intake and Output 06/21/21 00:00 Intake Total 1860 ml Output Total 1000 ml Balance 860 ml Intake Oral 1860 ml Output Urine Total 1000 ml # Bowel Movements 2 General: Alert, Cooperative HEENT: Atraumatic Heart: Other (Atrial fibrillation) Neuro: Normal Speech Results Lab Laboratory Tests 06/21/21 05:20 A/P-Cardiology Admission Diagnosis Paroxysmal atrial fibrillation COVID-19 infection Hypertension Hyperlipidemia Assessment/Plan Paroxysmal atrial fibrillation, converted to sinus rhythm, has been in and out of atrial fibrillation. Rate is controlled, continue to monitor Maintained on Xarelto History of hypertension, blood pressure is better controlled. Currently on Cardizem CD 120 mg daily, lisinopril 40 mg daily, atenolol 50 mg twice a day, hydralazine 50mg TID. and using clonidine as needed and monitor tolerance and response. Hyperlipidemia, monitor lipids History of aortic valve sclerosis. COVID-19 pneumonia. Patient is laying down in bed, I did not examine the patient today, discussed the management plan with Nurys and the nurse, reviewed the records Heart rate is well controlled at this time, maintained on Xarelto Blood pressure is better controlled. Continue on current medication and monitor blood pressure Patient is still in quarantine for COVID-19 pneumonia NURYS JEAN Jun 21, 2021 10:59 MARINO GARCIA MD Jun 21, 2021 14:18
[2021-06-21 11:22] VITALS: BP 122/60
--- NOTE | 2021-06-21 12:03 | Progress Note - Hospitalist ---
SUSAN MOTA 06/21/21 1203: Subjective HPI/CC On Admission Date Seen by Provider: Jun 21, 2021 Time Seen by Provider: 11:00 CC: Altered mental status HPI: 71 yr old WF clinic pt of [facility] and Dr. Oakley cardiology who presents to the ER with altered mental status and unable to really even verbalize. She was d iagnosed with Covid-19 pneumonia, placed on appropriate medication, and Dr. Oakley will see her in consultation. She does have a significant murmur. She is very lethargic and doesn't open her eyes during my exam. Subjective/Events-last exam Patient is eating breakfast with the assistance of nursing. Social work talked to her about working on placement at [facility] and rehab. Review of Systems unable to obtain Objective Exam Vital Signs Vital Signs Date Time Temp Pulse Resp B/P (MAP) Pulse Ox O2 Delivery O2 Flow Rate FiO2 06/21/21 11:22 36.0 93 18 122/60 (80) 92 Nasal Cannula 3.50 06/15/21 15:16 28 Capillary Refill : General Appearance: Chronically ill HEENT: Normal ENT Inspection Neck: Normal Inspection Respiratory: Normal Breath Sounds, No Accessory Muscle Use Cardiovascular: Irregularly Irregular Gastrointestinal: Normal Bowel Sounds, Non Tender, Soft Rectal: Deferred Back: Normal Inspection Extremity: Normal Inspection Neurologic/Psychiatric: Normal Mood/Affect Skin: Normal Color, Warm/Dry, Ecchymosis Results/Procedures Lab Laboratory Tests 06/21/21 05:20 Patient resulted labs reviewed. Assessment/Plan Assessment and Plan Assess & Plan/Chief Complaint Acute Encephalopathy - Supportive care - likely secondary to UTI and COVID - depakote Diabetes - SSI - K replacement as needed Secondary HTN - CT Ab/Pelvis showed large adrenal mass - requiring multiple antihypertensives - cardiology managing BP meds Afib - Diltazam 120 - Xarelto - cardiology recs HLD - atorvastatin 20 ELMIRA MONTIEL DO 06/22/21 0552: Subjective Subjective/Events-last exam Pt having no new issues Going to [facility] after isolation completed Cardiology did change a few of her medications due to the hypertension Review of Systems Neurological: Confusion Objective Exam General Appearance: No Apparent Distress, WD/WN, Chronically ill Assessment/Plan Assessment and Plan Assess & Plan/Chief Complaint assisted at discharge Supervisory-Addendum Brief Verification & Attestation Participated in pt care: history, MDM, physical Personally performed: exam, history, MDM, supervision of care Care discussed with: Medical Student Procedures: n/a Results interpretation: Verified all documentation Verification and Attestation of Medical Student E/M Service A medical student performed and documented this service in my presence. I reviewed and verified all information documented by the medical student and made modifications to such information, when appropriate. I personally performed the physical exam and medical decision making. Elmira Montiel, Jun 22, 2021,05:51 SUSAN MOTA Jun 21, 2021 12:03 ELMIRA MONTIEL DO Jun 22, 2021 05:52
--- NOTE | 2021-06-21 13:53 | Physical Therapy Daily Note ---
PT Daily Note-Current Subjective Patient more awake this treatment session, agrees to treatment. Patient taking sips of water from housekeeping upon PT arrival. Mental Status Attachments: Oxygen, Gross Catheter, IV Transfers SCALE: Activities may be completed with or without assistive devices. 5-Lsmonrnplb-aclakik completes the activity by him/herself with no assistance from a helper. 5-Set-up or Clean-up Assistance-helper sets up or cleans up; patient completes activity. [place] assists only prior to or following the activity. 4-Supervision or Touching Assistance-helper provides verbal cues and/or touching/steadying and/or contact guard assistance as patient completes activity. Assistance may be provided throughout the activity or intermittently. 3-Partial/Moderate Assistance-helper does LESS THAN HALF the effort. [place] lifts, holds or supports trunk or limbs, but provides less than half the effort. 2-Substantial/Maximal Assistance-helper does MORE THAN HALF the effort. [place] lifts or holds trunk or limbs and provides more than half the effort. 5-Ixueduvwy-eojces does ALL the effort. Patient does none of the effort to complete the activity. Or, the assistance of 2 or more helpers is required for the patient to complete the activity. If activity was not attempted, code reason: 7-Patient Refused. 9-Not Applicable-not attempted and the patient did not perform the activity before the current illness, exacerbation or injury. 10-Not Attempted due to Environmental Limitations-(lack of equipment, weather restraints, etc.). 88-Not Attempted due to Medical Conditions or Safety Concerns. Roll Left & Right (QC): 2 Sit to Lying (QC): 2 Lying to Sitting/Side of Bed(Q: 2 Sit to Stand (QC): 2 Weight Bearing Right Lower Extremity: Right Weight Bearing/Tolerated Left Lower Extremity: Left Weight Bearing/Tolerated Gait Training Does the Patient Walk?: No and Walking Goal NOT indicated Assessment Current Status: Poor Progress Patient agreeable to treatment this date and is able to reply to most questions from PT. She responds to more questions and gives reasonable responses, however is still oriented only x 1. Patient performs all bed mobility and transfers with max A. She is able to sit at the edge of the bed ~10 minutes and performs static and dynamic sitting balance with min A. Patient is able to perform sit to stand with max A and sidesteps 2-3 feet to get higher in the bed. Patient in bed post treatment with all needs met, nursing notified, call light in hand, and bed alarm activated. PT Short Term Goals Short Term Goals Time Frame: Jun 26, 2021 Roll Left & Right: 4 Sit to lyin Lying to sitting on side of be: 4 Sit to stand: 4 Chair/geu-ta-hgtiw transfer: 4 Toilet transfer: 4 PT Alf Goals Alf Goals PT Alf Goals Time Frame: Jul 07, 2021 Roll Left & Right (QC): 6 Sit to Lying (QC): 6 Lying-Sitting on Side/Bed(QC): 6 Sit to Stand (QC): 6 Chair/Qpz-tr-Kwicg Xfer(QC): 6 Toilet Transfer (QC): 6 Does the Patient Walk: Yes Walk 10 feet (QC): 4 Walk 50ft with 2 Turns (QC): 4 Walk 150 ft (QC): 4 PT Plan Treatment/Plan Treatment Plan: Continue Plan of Care Treatment Plan: Bed Mobility, Education, Functional Activity Kody, Functional Strength, Group Therapy, Gait, Safety, Therapeutic Exercise, Transfers Treatment Duration: Jul 27, 2021 Frequency: 6 times per week Estimated Hrs Per Day: .25 hour per day Patient and/or Family Agrees t: Yes Safety Risks/Education Patient Education: Transfer Techniques Teaching Recipient: Patient Teaching Methods: Demonstration, Discussion Response to Teaching: Reinforcement Needed Time/GCodes Time In: 1053 Time Out: 1118 Total Billed Treatment Time: 25 Total Billed Treatment Visit, FA x 2 BURAK SALINAS PT Jun 21, 2021 13:53
[2021-06-21 16:00] VITALS: BP 122/65
[2021-06-21] MEDS: RIVAROXABAN 20 MG TABLET (XARELTO) PO SCH (17:22)
[2021-06-21] MEDS: CALCIUM CARBONATE 500 MG (TUMS) TAB.CHEW PO SCH (20:16)
[2021-06-21] MEDS: LORATADINE (CLARITIN) 10 MG TAB PO SCH (20:16)
[2021-06-21 20:38] VITALS: BP 134/70
[2021-06-21 23:52] VITALS: BP 111/70
[2021-06-22 03:50] VITALS: BP 130/58
[2021-06-22 08:08] LABS: BASOPHILS % (AUTO) 1 % (0-10); EOSINOPHILS % (AUTO) 1 % (0-10); HEMATOCRIT 33 % (35-52); HEMOGLOBIN 10.6 g/dL (11.5-16.0); LYMPHOCYTES # (AUTO) 1.2 10^3/uL (1.0-4.0); LYMPHOCYTES % (AUTO) 19 % (12-44); MEAN CORPUSCULAR HEMOGLOBIN 29 pg (25-34); MEAN CORPUSCULAR HGB CONC 32 g/dL (32-36); MEAN CORPUSCULAR VOLUME 91 fL (80-99); MEAN PLATELET VOLUME 11.2 fL (9.0-12.2); MONOCYTES # (AUTO) 0.2 10^3/uL (0.0-1.0); MONOCYTES % (AUTO) 3 % (0-12); NEUTROPHILS # (AUTO) 4.6 10^3/uL (1.8-7.8); NEUTROPHILS % (AUTO) 72 % (42-75); PLATELET COUNT 241 10^3/uL (130-400); WHITE BLOOD COUNT 6.4 10^3/uL (4.3-11.0)
[2021-06-22 08:25] LABS: ALBUMIN 2.4 GM/DL (3.2-4.5); BILIRUBIN,TOTAL 0.4 MG/DL (0.1-1.0); CALCIUM 9.1 MG/DL (8.5-10.1); CREATININE SERUM 0.71 MG/DL (0.60-1.30); POTASSIUM 4.4 MMOL/L (3.6-5.0); TOTAL PROTEIN 5.8 GM/DL (6.4-8.2)
[2021-06-22 08:53] VITALS: BP 102/65
[2021-06-22] MEDS: CYANOCOBALAMIN 1,000 MCG (VITAMIN B-12) TABLET PO SCH (08:59)
[2021-06-22] MEDS: dilTIAZem120 MG (CARDIZEM CD) CAP PO SCH (08:59)
[2021-06-22] MEDS: KCL 10 MEQ TAB (MICRO K) PO SCH ×2 (08:59→20:58)
[2021-06-22] MEDS: FUROSEMIDE 40 MG (LASIX) TAB PO SCH (08:59)
[2021-06-22] MEDS: OXYBUTYNIN (DITROPAN) 5 MG TAB PO SCH ×2 (08:59→20:58)
[2021-06-22] MEDS: DIVALPROEX 250 MG DELAYED RELEASE (DEPAKOTE) TAB PO SCH ×2 (08:59→20:58)
[2021-06-22] MEDS: lisINopril 20 MG (PRINIVIL) TABLET PO SCH (08:59)
[2021-06-22] MEDS: VITAMIN D3 25 MCG (1,000 UNITS) TABLET PO SCH (08:59)
[2021-06-22] MEDS: PANTOPRAZOLE 40 MG (PROTONIX) TAB PO SCH (08:59)
[2021-06-22] MEDS: inSUlin ASPART (NovoLOG) 1 UNIT/0.01 ML (CHARGE PER UNIT) SC SCH ×4 (08:59→21:22)
[2021-06-22] MEDS: FOLIC ACID 1 MG TAB PO SCH (08:59)
[2021-06-22] MEDS: ATENOLOL 50 MG (TENORMIN) TAB PO SCH ×2 (08:59→20:58)
[2021-06-22] MEDS: DOCUSATE SODIUM 100 MG (COLACE) CAP PO SCH ×2 (09:00→20:58)
[2021-06-22] MEDS: hydrALAZINE (APRESOLINE) 25 MG TAB PO SCH ×3 (09:00→20:58)
[2021-06-22] MEDS: SENNOSIDES 8.6 MG (SENOKOT) TAB PO SCH ×2 (09:00→20:58)
--- NOTE | 2021-06-22 10:59 | Progress Note - Hospitalist ---
Subjective HPI/CC On Admission Date Seen by Provider: Jun 22, 2021 Time Seen by Provider: 11:00 CC: Altered mental status HPI: 71 yr old WF clinic pt of [facility] and Dr. Oakley cardiology who presents to the ER with altered mental status and unable to really even verbalize. She was diagnosed with Covid-19 pneumonia, placed on appropriate medication, and Dr. Oakley will see her in consultation. She does have a significant murmur. She is very lethargic and doesn't open her eyes during my exam. Subjective/Events-last exam Patient doing the same Awaiting custodial placement Review of Systems General: Fatigue, Malaise Objective Exam Vital Signs Vital Signs Date Time Temp Pulse Resp B/P (MAP) Pulse Ox O2 Delivery O2 Flow Rate FiO2 06/23/21 03:30 97 20 121/65 (83) 95 Nasal Cannula 4.50 06/23/21 00:00 36.7 Capillary Refill : General Appearance: No Apparent Distress, WD/WN, Chronically ill Results/Procedures Lab Laboratory Tests 06/22/21 08:04 Patient resulted labs reviewed. Assessment/Plan Assessment and Plan Assess & Plan/Chief Complaint half-way at discharge Diagnosis/Problems Diagnosis/Problems (1) Acute encephalopathy (2) Murmur (3) Malignant hypertension (4) Dementia (5) COVID-19 virus infection Status: Acute LEONORA JONES DO Jun 22, 2021 10:59
[2021-06-22 11:45] VITALS: BP 118/60
--- NOTE | 2021-06-22 12:33 | Physical Therapy Daily Note ---
PT Daily Note-Current Subjective Patient in bed pre tx, eyes open but doesn't communicate. After lowering the sheets a large BM puddle is seen between her legs. Nursing is notified to help. Appearance Patient in bed post tx with nurse call, phone, tray, all needs met. Mental Status Patient Orientation: Unable to Assess Attachments: Gross Catheter (nurse aide removes during tx) Transfers SCALE: Activities may be completed with or without assistive devices. 6-Kcowjuenmt-xpywjce completes the activity by him/herself with no assistance from a helper. 5-Set-up or Clean-up Assistance-helper sets up or cleans up; patient completes activity. [place] assists only prior to or following the activity. 4-Supervision or Touching Assistance-helper provides verbal cues and/or touching/steadying and/or contact guard assistance as patient completes activity. Assistance may be provided throughout the activity or intermittently. 3-Partial/Moderate Assistance-helper does LESS THAN HALF the effort. [place] lifts, holds or supports trunk or limbs, but provides less than half the effort. 2-Substantial/Maximal Assistance-helper does MORE THAN HALF the effort. [place] lifts or holds trunk or limbs and provides more than half the effort. 4-Itcvbjwbo-uswric does ALL the effort. Patient does none of the effort to complete the activity. Or, the assistance of 2 or more helpers is required for the patient to complete the activity. If activity was not attempted, code reason: 7-Patient Refused. 9-Not Applicable-not attempted and the patient did not perform the activity before the current illness, exacerbation or injury. 10-Not Attempted due to Environmental Limitations-(lack of equipment, weather restraints, etc.). 88-Not Attempted due to Medical Conditions or Safety Concerns. Roll Left & Right (QC): 1 Patient has to roll from side to side several times for cleaning and changing pad and putting brief on. Patient is dependent for this, she even resists some. Weight Bearing Right Lower Extremity: Right Weight Bearing/Tolerated Left Lower Extremity: Left Weight Bearing/Tolerated Treatments rolling, cleaning Assessment Current Status: Poor Progress Patient doesn't assist with movement, says "ouch" but doesn't communicate. PT Short Term Goals Short Term Goals Time Frame: Jun 26, 2021 Roll Left & Right: 4 Sit to lyin Lying to sitting on side of be: 4 Sit to stand: 4 Chair/vzx-di-ncgmr transfer: 4 Toilet transfer: 4 PT Skilled Nursing Goals Skilled Nursing Goals PT Skilled Nursing Goals Time Frame: Jul 07, 2021 Roll Left & Right (QC): 6 Sit to Lying (QC): 6 Lying-Sitting on Side/Bed(QC): 6 Sit to Stand (QC): 6 Chair/Smu-gp-Xwbds Xfer(QC): 6 Toilet Transfer (QC): 6 Does the Patient Walk: Yes Walk 10 feet (QC): 4 Walk 50ft with 2 Turns (QC): 4 Walk 150 ft (QC): 4 PT Plan Problem List Problem List: Activity Tolerance, Functional Strength, Safety, Balance, Gait, Transfer, Bed Mobility, ROM Treatment/Plan Treatment Plan: Continue Plan of Care Treatment Plan: Bed Mobility, Education, Functional Activity Kody, Functional Strength, Group Therapy, Gait, Safety, Therapeutic Exercise, Transfers Treatment Duration: Jul 27, 2021 Frequency: 6 times per week Estimated Hrs Per Day: .25 hour per day Patient and/or Family Agrees t: Yes Safety Risks/Education Patient Education: Correct Positioning, Safety Issues Teaching Recipient: Patient Teaching Methods: Demonstration, Discussion Response to Teaching: Reinforcement Needed Time/GCodes Time In: 1117 Time Out: 1145 Total Billed Treatment Time: 28 Total Billed Treatment 1 visit FA 28' CALIN CASTORENA PT Jun 22, 2021 12:33
[2021-06-22 16:00] VITALS: BP 124/60
[2021-06-22] MEDS: RIVAROXABAN 20 MG TABLET (XARELTO) PO SCH (17:50)
[2021-06-22 19:43] VITALS: BP 124/59
[2021-06-22] MEDS: CALCIUM CARBONATE 500 MG (TUMS) TAB.CHEW PO SCH (20:57)
[2021-06-22] MEDS: LORATADINE (CLARITIN) 10 MG TAB PO SCH (20:57)
[2021-06-23] VITALS: BP 119/72
[2021-06-23 03:30] VITALS: BP 121/65
[2021-06-23] MEDS: inSUlin ASPART (NovoLOG) 1 UNIT/0.01 ML (CHARGE PER UNIT) SC SCH ×4 (06:23→21:51)
--- NOTE | 2021-06-23 06:23 | Progress Note - Hospitalist ---
Subjective HPI/CC On Admission Date Seen by Provider: Jun 23, 2021 Time Seen by Provider: 10:30 CC: Altered mental status HPI: 71 yr old WF clinic pt of [facility] and Dr. Oakley cardiology who presents to the ER with altered mental status and unable to really even verbalize. She was diagnosed with Covid-19 pneumonia, placed on appropriate medication, and Dr. Oakley will see her in consultation. She does have a significant murmur. She is very lethargic and doesn't open her eyes during my exam. Subjective/Events-last exam Patient doing well Still confused at times Spoke with daughter since she is out of isolation Had in-depth conversation outside of room with daughter [facility] placement Review of Systems General: Fatigue, Malaise Neurological: Confusion Objective Exam Vital Signs Vital Signs Date Time Temp Pulse Resp B/P (MAP) Pulse Ox O2 Delivery O2 Flow Rate FiO2 06/24/21 04:22 36.4 98 18 101/51 (68) 94 Nasal Cannula 3.50 Capillary Refill : General Appearance: No Apparent Distress, WD/WN, Chronically ill Respiratory: Lungs Clear Cardiovascular: Regular Rate, Rhythm Neurologic/Psychiatric: Alert, Disoriented Results/Procedures Lab Laboratory Tests 06/23/21 06:27 Patient resulted labs reviewed. Assessment/Plan Assessment and Plan Assess & Plan/Chief Complaint [facility] at discharge Diagnosis/Problems Diagnosis/Problems (1) Acute encephalopathy (2) Murmur (3) Malignant hypertension (4) Dementia (5) COVID-19 virus infection Status: Acute LEONORA JONES DO Jun 23, 2021 06:22
[2021-06-23 06:33] LABS: BASOPHILS % (AUTO) 1 % (0-10); EOSINOPHILS % (AUTO) 0 % (0-10); HEMATOCRIT 36 % (35-52); HEMOGLOBIN 11.3 g/dL (11.5-16.0); LYMPHOCYTES # (AUTO) 1.3 10^3/uL (1.0-4.0); LYMPHOCYTES % (AUTO) 19 % (12-44); MEAN CORPUSCULAR HEMOGLOBIN 29 pg (25-34); MEAN CORPUSCULAR HGB CONC 32 g/dL (32-36); MEAN CORPUSCULAR VOLUME 91 fL (80-99); MEAN PLATELET VOLUME 10.9 fL (9.0-12.2); MONOCYTES # (AUTO) 0.2 10^3/uL (0.0-1.0); MONOCYTES % (AUTO) 4 % (0-12); NEUTROPHILS % (AUTO) 73 % (42-75); PLATELET COUNT 241 10^3/uL (130-400); WHITE BLOOD COUNT 6.9 10^3/uL (4.3-11.0)
[2021-06-23 07:16] LABS: ALBUMIN 2.5 GM/DL (3.2-4.5); BILIRUBIN,TOTAL 0.5 MG/DL (0.1-1.0); CALCIUM 9.6 MG/DL (8.5-10.1); CREATININE SERUM 0.7 MG/DL (0.60-1.30); POTASSIUM 4.5 MMOL/L (3.6-5.0)
[2021-06-23 08:24] VITALS: BP 112/58
[2021-06-23] MEDS: DOCUSATE SODIUM 100 MG (COLACE) CAP PO SCH ×2 (09:00→20:06)
[2021-06-23] MEDS: SENNOSIDES 8.6 MG (SENOKOT) TAB PO SCH ×2 (09:00→20:06)
[2021-06-23] MEDS: PANTOPRAZOLE 40 MG (PROTONIX) TAB PO SCH (09:08)
[2021-06-23] MEDS: FUROSEMIDE 40 MG (LASIX) TAB PO SCH (09:08)
[2021-06-23] MEDS: CYANOCOBALAMIN 1,000 MCG (VITAMIN B-12) TABLET PO SCH (09:08)
[2021-06-23] MEDS: FOLIC ACID 1 MG TAB PO SCH (09:08)
[2021-06-23] MEDS: dilTIAZem120 MG (CARDIZEM CD) CAP PO SCH (09:08)
[2021-06-23] MEDS: VITAMIN D3 25 MCG (1,000 UNITS) TABLET PO SCH (09:08)
[2021-06-23] MEDS: lisINopril 20 MG (PRINIVIL) TABLET PO SCH (09:08)
[2021-06-23] MEDS: KCL 10 MEQ TAB (MICRO K) PO SCH ×2 (09:08→20:18)
[2021-06-23] MEDS: hydrALAZINE (APRESOLINE) 25 MG TAB PO SCH ×3 (09:08→20:12)
[2021-06-23] MEDS: DIVALPROEX 250 MG DELAYED RELEASE (DEPAKOTE) TAB PO SCH ×2 (09:08→20:16)
[2021-06-23] MEDS: OXYBUTYNIN (DITROPAN) 5 MG TAB PO SCH ×2 (09:10→20:19)
[2021-06-23] MEDS: ATENOLOL 50 MG (TENORMIN) TAB PO SCH ×2 (09:10→20:17)
[2021-06-23 12:00] VITALS: BP 116/57
--- NOTE | 2021-06-23 14:22 | Physical Therapy Daily Note ---
PT Daily Note-Current Subjective Patient in bed pre tx, doesn't communicate but does have her eyes open. Appearance Patient in bed post tx with nurse call, phone, tray, all needs met, bed alarm on. Mental Status Patient Orientation: Non-Verbal/Aphasic Attachments: Oxygen, Gross Catheter (has purewick) Transfers SCALE: Activities may be completed with or without assistive devices. 3-Hviyzjoach-aamgaqw completes the activity by him/herself with no assistance from a helper. 5-Set-up or Clean-up Assistance-helper sets up or cleans up; patient completes activity. [place] assists only prior to or following the activity. 4-Supervision or Touching Assistance-helper provides verbal cues and/or touching/steadying and/or contact guard assistance as patient completes activity. Assistance may be provided throughout the activity or intermittently. 3-Partial/Moderate Assistance-helper does LESS THAN HALF the effort. [place] lifts, holds or supports trunk or limbs, but provides less than half the effort. 2-Substantial/Maximal Assistance-helper does MORE THAN HALF the effort. [place] lifts or holds trunk or limbs and provides more than half the effort. 5-Uubrrmeim-odhhqb does ALL the effort. Patient does none of the effort to complete the activity. Or, the assistance of 2 or more helpers is required for the patient to complete the activity. If activity was not attempted, code reason: 7-Patient Refused. 9-Not Applicable-not attempted and the patient did not perform the activity before the current illness, exacerbation or injury. 10-Not Attempted due to Environmental Limitations-(lack of equipment, weather restraints, etc.). 88-Not Attempted due to Medical Conditions or Safety Concerns. Roll Left & Right (QC): 1 Sit to Lying (QC): 1 Lying to Sitting/Side of Bed(Q: 1 Patient dependent to sit to the side of the bed, after sitting to the side of the bed she tries laying back down several times but eventually gives up and sits for a few minutes. Patient doesn't follow directions, can't perform LE exercise. Attempted to stand patient but she doesn't assist at all. Layed back down (dependent) and scooted up with bed invert. Weight Bearing Right Lower Extremity: Right Weight Bearing/Tolerated Left Lower Extremity: Left Weight Bearing/Tolerated Treatments sitting, bed mobility Assessment Current Status: Poor Progress Patient will be seen from now on on Saturday, Saturday, Saturday to work on sitting and rolling. If she starts to participate she can be seen daily. PT Short Term Goals Short Term Goals Time Frame: Jun 26, 2021 Roll Left & Right: 4 Sit to lyin Lying to sitting on side of be: 4 Sit to stand: 4 Chair/vhb-gi-myotk transfer: 4 Toilet transfer: 4 PT Mcfp Goals Die Technician Goals PT Mcfp Goals Time Frame: Jul 07, 2021 Roll Left & Right (QC): 6 Sit to Lying (QC): 6 Lying-Sitting on Side/Bed(QC): 6 Sit to Stand (QC): 6 Chair/Juk-ds-Vnkyl Xfer(QC): 6 Toilet Transfer (QC): 6 Car Transfer (QC): 88 Does the Patient Walk: Yes Walk 10 feet (QC): 4 Walk 50ft with 2 Turns (QC): 4 Walk 150 ft (QC): 4 Walking 10ft on Uneven Surface: 88 1 Step (curb) (QC): 88 4 Steps (QC): 88 12 Steps (QC): 88 Picking up an Object (QC): 88 Wheel 50 feet with 2 turns (QC: 88 Wheel 150 feet: 88 PT Plan Problem List Problem List: Activity Tolerance, Functional Strength, Safety, Balance, Gait, Transfer, Bed Mobility, ROM Treatment/Plan Treatment Plan: Continue Plan of Care Treatment Plan: Bed Mobility, Education, Functional Activity Kody, Functional Strength, Group Therapy, Gait, Safety, Therapeutic Exercise, Transfers Treatment Duration: Jul 27, 2021 Frequency: 6 times per week Estimated Hrs Per Day: .25 hour per day Patient and/or Family Agrees t: Yes Safety Risks/Education Patient Education: Correct Positioning, Safety Issues Teaching Recipient: Patient Teaching Methods: Demonstration, Discussion Response to Teaching: Reinforcement Needed Time/GCodes Time In: 1405 Time Out: 1415 Total Billed Treatment Time: 10 Total Billed Treatment 1 visit FA CALIN SPAULDING PT Jun 23, 2021 14:22
[2021-06-23 15:57] VITALS: BP 114/54
[2021-06-23] MEDS: RIVAROXABAN 20 MG TABLET (XARELTO) PO SCH (17:04)
[2021-06-23 19:50] VITALS: BP 133/60
[2021-06-23] MEDS: LORATADINE (CLARITIN) 10 MG TAB PO SCH (20:20)
[2021-06-23] MEDS: CALCIUM CARBONATE 500 MG (TUMS) TAB.CHEW PO SCH (20:22)
[2021-06-24 00:07] VITALS: BP 118/56
[2021-06-24 04:22] VITALS: BP 101/51
[2021-06-24] MEDS: inSUlin ASPART (NovoLOG) 1 UNIT/0.01 ML (CHARGE PER UNIT) SC SCH ×4 (06:36→20:01)
--- NOTE | 2021-06-24 07:36 | Progress Note - Hospitalist ---
Subjective HPI/CC On Admission Date Seen by Provider: Jun 24, 2021 Time Seen by Provider: 10:30 CC: Altered mental status HPI: 71 yr old WF clinic pt of [facility] and Dr. Oakley cardiology who presents to the ER with altered mental status and unable to really even verbalize. She was diagnosed with Covid-19 pneumonia, placed on appropriate medication, and Dr. Oakley will see her in consultation. She does have a significant murmur. She is very lethargic and doesn't open her eyes during my exam. Subjective/Events-last exam Patient still confused Opens her eyes but does not converse Check meds and labs No falls Gross catheter remains Review of Systems Neurological: Confusion Objective Exam Vital Signs Vital Signs Date Time Temp Pulse Resp B/P (MAP) Pulse Ox O2 Delivery O2 Flow Rate FiO2 06/25/21 04:00 36.6 91 20 129/66 (87) 95 Nasal Cannula 3.50 Capillary Refill : General Appearance: No Apparent Distress, WD/WN, Chronically ill Respiratory: Lungs Clear, Normal Breath Sounds Cardiovascular: Regular Rate, Rhythm Neurologic/Psychiatric: Alert, Disoriented Results/Procedures Lab Patient resulted labs reviewed. Assessment/Plan Assessment and Plan Assess & Plan/Chief Complaint half-way at discharge Diagnosis/Problems Diagnosis/Problems (1) Acute encephalopathy (2) Murmur (3) Malignant hypertension (4) Dementia (5) COVID-19 virus infection Status: Acute JONESLEONORA Jun 24, 2021 07:36
[2021-06-24 07:53] VITALS: BP 119/60
[2021-06-24] MEDS: VITAMIN D3 25 MCG (1,000 UNITS) TABLET PO SCH (09:03)
[2021-06-24] MEDS: ATENOLOL 50 MG (TENORMIN) TAB PO SCH ×2 (09:03→19:24)
[2021-06-24] MEDS: DIVALPROEX 250 MG DELAYED RELEASE (DEPAKOTE) TAB PO SCH ×2 (09:04→19:25)
[2021-06-24] MEDS: FUROSEMIDE 40 MG (LASIX) TAB PO SCH (09:04)
[2021-06-24] MEDS: PANTOPRAZOLE 40 MG (PROTONIX) TAB PO SCH (09:04)
[2021-06-24] MEDS: KCL 10 MEQ TAB (MICRO K) PO SCH ×2 (09:04→19:24)
[2021-06-24] MEDS: FOLIC ACID 1 MG TAB PO SCH (09:04)
[2021-06-24] MEDS: OXYBUTYNIN (DITROPAN) 5 MG TAB PO SCH ×2 (09:04→19:24)
[2021-06-24] MEDS: CYANOCOBALAMIN 1,000 MCG (VITAMIN B-12) TABLET PO SCH (09:04)
[2021-06-24] MEDS: hydrALAZINE (APRESOLINE) 25 MG TAB PO SCH ×3 (09:04→19:24)
[2021-06-24] MEDS: dilTIAZem120 MG (CARDIZEM CD) CAP PO SCH (09:04)
[2021-06-24] MEDS: lisINopril 20 MG (PRINIVIL) TABLET PO SCH (09:05)
[2021-06-24] MEDS: DOCUSATE SODIUM 100 MG (COLACE) CAP PO SCH ×2 (09:05→19:28)
[2021-06-24] MEDS: SENNOSIDES 8.6 MG (SENOKOT) TAB PO SCH ×2 (09:05→19:29)
[2021-06-24 12:25] VITALS: BP 108/61
[2021-06-24 15:30] VITALS: BP 105/66
[2021-06-24] MEDS: RIVAROXABAN 20 MG TABLET (XARELTO) PO SCH (17:39)
[2021-06-24 19:25] VITALS: BP 106/57
[2021-06-24] MEDS: LORATADINE (CLARITIN) 10 MG TAB PO SCH (19:25)
[2021-06-24] MEDS: CALCIUM CARBONATE 500 MG (TUMS) TAB.CHEW PO SCH (19:28)
[2021-06-25] VITALS (7 sets, daily range): BP systolic 93–129; BP diastolic 53–68
[2021-06-25] MEDS: inSUlin ASPART (NovoLOG) 1 UNIT/0.01 ML (CHARGE PER UNIT) SC SCH ×4 (06:18→20:38)
--- NOTE | 2021-06-25 08:29 | Progress Note - Hospitalist ---
Subjective HPI/CC On Admission Date Seen by Provider: Jun 25, 2021 Time Seen by Provider: 12:45 CC: Altered mental status HPI: 71 yr old WF clinic pt of [facility] and Dr. Oakley cardiology who presents to the ER with altered mental status and unable to really even verbalize. She was diagnosed with Covid-19 pneumonia, placed on appropriate medication, and Dr. Oakley will see her in consultation. She does have a significant murmur. She is very lethargic and doesn't open her eyes during my exam. Subjective/Events-last exam Patient about the same CT scan no acute abnormality Awaiting placement Review of Systems General: Fatigue, Malaise Objective Exam Vital Signs Vital Signs Date Time Temp Pulse Resp B/P (MAP) Pulse Ox O2 Delivery O2 Flow Rate FiO2 06/25/21 23:15 36.7 93 20 116/66 (83) 96 Nasal Cannula 3.00 Capillary Refill : General Appearance: No Apparent Distress, WD/WN, Chronically ill Respiratory: Lungs Clear Cardiovascular: Regular Rate, Rhythm, Irregularly Irregular, Tachycardia Neurologic/Psychiatric: Alert, Disoriented Results/Procedures Lab Patient resulted labs reviewed. Assessment/Plan Assessment and Plan Assess & Plan/Chief Complaint [facility] at discharge Diagnosis/Problems Diagnosis/Problems (1) Acute encephalopathy (2) Murmur (3) Malignant hypertension (4) Dementia (5) COVID-19 virus infection Status: Acute LEONORA JONES DO Jun 25, 2021 08:29
[2021-06-25] MEDS: dilTIAZem120 MG (CARDIZEM CD) CAP PO SCH (08:48)
[2021-06-25] MEDS: FOLIC ACID 1 MG TAB PO SCH (08:48)
[2021-06-25] MEDS: VITAMIN D3 25 MCG (1,000 UNITS) TABLET PO SCH (08:48)
[2021-06-25] MEDS: PANTOPRAZOLE 40 MG (PROTONIX) TAB PO SCH (08:48)
[2021-06-25] MEDS: hydrALAZINE (APRESOLINE) 25 MG TAB PO SCH ×3 (08:50→19:47)
[2021-06-25] MEDS: FUROSEMIDE 40 MG (LASIX) TAB PO SCH (08:50)
[2021-06-25] MEDS: SENNOSIDES 8.6 MG (SENOKOT) TAB PO SCH ×2 (08:50→19:48)
[2021-06-25] MEDS: DOCUSATE SODIUM 100 MG (COLACE) CAP PO SCH ×2 (08:50→19:48)
[2021-06-25] MEDS: lisINopril 20 MG (PRINIVIL) TABLET PO SCH (08:50)
[2021-06-25] MEDS: OXYBUTYNIN (DITROPAN) 5 MG TAB PO SCH ×2 (08:50→19:47)
[2021-06-25] MEDS: CYANOCOBALAMIN 1,000 MCG (VITAMIN B-12) TABLET PO SCH (08:51)
[2021-06-25] MEDS: DIVALPROEX 250 MG DELAYED RELEASE (DEPAKOTE) TAB PO SCH ×2 (08:51→19:48)
[2021-06-25] MEDS: ATENOLOL 50 MG (TENORMIN) TAB PO SCH ×2 (08:51→19:48)
[2021-06-25] MEDS: KCL 10 MEQ TAB (MICRO K) PO SCH ×2 (08:51→19:48)
--- NOTE | 2021-06-25 10:43 | Diagnostic Imaging Report ---
PROCEDURE: CT head without contrast. TECHNIQUE: Multiple contiguous axial images were obtained through the brain without the use of intravenous contrast. Auto Exposure Controls were utilized during the CT exam to meet ALARA standards for radiation dose reduction. INDICATION: Confusion. EXAMINATION: CT brain without contrast 06/25/2021. COMPARISON: 06/12/2021 FINDINGS: There are diffuse calcifications throughout the posterior fossa stable from previous imaging. Atrophy is unchanged. Chronic ischemic disease is noted with no acute hemorrhage or infarct appreciated. There is no mass, mass effect or midline shift. There is no hydrocephalus. There is partial opacification of the mastoid air cells bilaterally. This appears slightly worsened since previous examination. Chronic disease noted within the sinuses. Marked deviation of the nasal septum towards the left is stable from previous imaging. IMPRESSION: 1. Chronic findings with no acute intracranial process. 2. Nonspecific partial opacification of the mastoid air cells worsened since previous imaging. 3. Not mentioned in the body of the report, there is prominent soft tissue density anterior to the left paracentral frontal calvarium perhaps due to scalp hematoma. Dictated by: Dictated on workstation # [id number]
[2021-06-25] MEDS: RIVAROXABAN 20 MG TABLET (XARELTO) PO SCH (17:00)
[2021-06-25] MEDS: LORATADINE (CLARITIN) 10 MG TAB PO SCH (19:48)
[2021-06-25] MEDS: CALCIUM CARBONATE 500 MG (TUMS) TAB.CHEW PO SCH (19:48)
[2021-06-26] MEDS: inSUlin ASPART (NovoLOG) 1 UNIT/0.01 ML (CHARGE PER UNIT) SC SCH ×2 (05:17→12:05)
[2021-06-26 07:38] VITALS: BP 132/62
[2021-06-26] MEDS: DOCUSATE SODIUM 100 MG (COLACE) CAP PO SCH (09:42)
[2021-06-26] MEDS: KCL 10 MEQ TAB (MICRO K) PO SCH (09:42)
[2021-06-26] MEDS: hydrALAZINE (APRESOLINE) 25 MG TAB PO SCH ×2 (09:42→12:05)
[2021-06-26] MEDS: FOLIC ACID 1 MG TAB PO SCH (09:42)
[2021-06-26] MEDS: PANTOPRAZOLE 40 MG (PROTONIX) TAB PO SCH (09:42)
[2021-06-26] MEDS: VITAMIN D3 25 MCG (1,000 UNITS) TABLET PO SCH (09:42)
[2021-06-26] MEDS: FUROSEMIDE 40 MG (LASIX) TAB PO SCH (09:42)
[2021-06-26] MEDS: CYANOCOBALAMIN 1,000 MCG (VITAMIN B-12) TABLET PO SCH (09:42)
[2021-06-26] MEDS: lisINopril 20 MG (PRINIVIL) TABLET PO SCH (09:42)
[2021-06-26] MEDS: SENNOSIDES 8.6 MG (SENOKOT) TAB PO SCH (09:42)
[2021-06-26] MEDS: dilTIAZem120 MG (CARDIZEM CD) CAP PO SCH (09:42)
[2021-06-26] MEDS: OXYBUTYNIN (DITROPAN) 5 MG TAB PO SCH (09:42)
[2021-06-26] MEDS: ATENOLOL 50 MG (TENORMIN) TAB PO SCH (09:42)
[2021-06-26] MEDS: DIVALPROEX 250 MG DELAYED RELEASE (DEPAKOTE) TAB PO SCH (09:42)
--- NOTE | 2021-06-26 11:00 | Physical Therapy Daily Note ---
PT Daily Note-Current Subjective Patient presented laying in bed and agrees to move to the chair with lift. Mental Status Patient Orientation: Person Attachments: Oxygen Transfers SCALE: Activities may be completed with or without assistive devices. 2-Goujocuuey-lgqpccx completes the activity by him/herself with no assistance from a helper. 5-Set-up or Clean-up Assistance-helper sets up or cleans up; patient completes activity. Elgin assists only prior to or following the activity. 4-Supervision or Touching Assistance-helper provides verbal cues and/or touching/steadying and/or contact guard assistance as patient completes activit y. Assistance may be provided throughout the activity or intermittently. 3-Partial/Moderate Assistance-helper does LESS THAN HALF the effort. Elgin lifts, holds or supports trunk or limbs, but provides less than half the effort. 2-Substantial/Maximal Assistance-helper does MORE THAN HALF the effort. Elgin lifts or holds trunk or limbs and provides more than half the effort. 0-Ntzgtkdsb-heaoqc does ALL the effort. Patient does none of the effort to complete the activity. Or, the assistance of 2 or more helpers is required for the patient to complete the activity. If activity was not attempted, code reason: 7-Patient Refused. 9-Not Applicable-not attempted and the patient did not perform the activity before the current illness, exacerbation or injury. 10-Not Attempted due to Environmental Limitations-(lack of equipment, weather restraints, etc.). 88-Not Attempted due to Medical Conditions or Safety Concerns. Roll Left & Right (QC): 2 Chair/Jrb-ko-Kkzxs Xfer(QC): 1 Patient is max assist for rolling in bed and dependent with loretta lift for transfer to the chair. Weight Bearing Right Lower Extremity: Right Weight Bearing/Tolerated Left Lower Extremity: Left Weight Bearing/Tolerated Treatments Bed mobility Loretta transfer to chair Assessment Patient was max assist for bed mobility and dependent for transfer to the chair with loretta. Nursing staff assisted with transfer to chair. PT Short Term Goals Short Term Goals Time Frame: Jun 26, 2021 Roll Left & Right: 4 Sit to lyin Lying to sitting on side of be: 4 Sit to stand: 4 Chair/zhx-sa-ofrne transfer: 4 Toilet transfer: 4 PT Residential Goals Residential Goals PT Netsuite Developer Goals Time Frame: Jul 07, 2021 Roll Left & Right (QC): 6 Sit to Lying (QC): 6 Lying-Sitting on Side/Bed(QC): 6 Sit to Stand (QC): 6 Chair/Yjq-yj-Tmaep Xfer(QC): 6 Toilet Transfer (QC): 6 Car Transfer (QC): 88 Does the Patient Walk: Yes Walk 10 feet (QC): 4 Walk 50ft with 2 Turns (QC): 4 Walk 150 ft (QC): 4 Walking 10ft on Uneven Surface: 88 1 Step (curb) (QC): 88 4 Steps (QC): 88 12 Steps (QC): 88 Picking up an Object (QC): 88 Wheel 50 feet with 2 turns (QC: 88 Wheel 150 feet: 88 PT Plan Problem List Problem List: Activity Tolerance, Functional Strength, Safety, Balance, Gait, Transfer, Bed Mobility, ROM Treatment/Plan Treatment Plan: Continue Plan of Care Treatment Plan: Bed Mobility, Education, Functional Activity Kody, Functional Strength, Group Therapy, Gait, Safety, Therapeutic Exercise, Transfers Treatment Duration: Jul 27, 2021 Frequency: 5 times per week Estimated Hrs Per Day: .25 hour per day Patient and/or Family Agrees t: Yes Time/GCodes Time In: 939 Time Out: 950 Total Billed Treatment Time: 11 Total Billed Treatment 1 Visit FA 11 min ONEYDA VASQUEZ PT Jun 26, 2021 11:00
[2021-06-26 11:18] VITALS: BP 104/84
[2021-06-26] MEDS ORDERED: ATOR20TA66 PO (12:54)
[2021-06-26] MEDS ORDERED: LORA10TA7 PO (12:54)
[2021-06-26] MEDS ORDERED: DILT-27 PO (12:54)
[2021-06-26] MEDS ORDERED: HYDR-3924 PO (12:54)
[2021-06-26] MEDS ORDERED: ATEN50TA PO (12:54)
[2021-06-26] MEDS ORDERED: METF-399 PO (12:54)
[2021-06-26] MEDS ORDERED: DIVA-74 PO (12:54)
[2021-06-26] MEDS ORDERED: CALC-823 PO (12:54)
[2021-06-26] MEDS ORDERED: CHOL10004 PO (12:54)
[2021-06-26] MEDS ORDERED: LISI40TA9 PO (12:54)
[2021-06-26] MEDS ORDERED: OXYB5TAB13 PO (12:54)
[2021-06-26] MEDS ORDERED: RIVA20TA PO (12:54)
[2021-06-26] MEDS ORDERED: FOLI1TAB33 PO (12:54)
[2021-06-26] MEDS ORDERED: CRAN250C2 PO (12:54)
[2021-06-26] MEDS ORDERED: PANT40TA52 PO (12:54)
[2021-06-26] MEDS ORDERED: FURO40TA4 PO (12:54)
[2021-06-26] MEDS ORDERED: CYAN-41 PO (12:54)
[2021-06-26] MEDS ORDERED: POTA-160 PO (12:54)
--- NOTE | 2021-06-26 13:12 | Discharge Summary ---
Discharge Summary Hospital Course Hospital Course Date of Admission: Jun 12, 2021 at 16:28 Admission Diagnosis : Family Physician/Provider: DEJUAN Date of Discharge: 06/26/21 Discharge Diagnosis: See problem list Hospital Course: Pt admitted after fall and normal head CT at outside hospital, but continued worsening debility and mental status. CT again without acute findings, no fractures on CT head, spine, pelvis xray. Treated for UTI and also found to have COVID19 without marked respiratory involvement. Remained debilitated and requiring significant assistance, discharged to SNF for further therapies. Mental status improved- initially not speaking, on day of d/c, able to state her age, and that she is in the hospital and say "thank you" after speaking, but also said "I really don't know" when asked her full name. Labs and Pending Lab Test: Laboratory Tests 06/25/21 15:08: Glucometer 241H 06/26/21 05:12: Glucometer 155H 06/26/21 11:32: Glucometer 251H Microbiology 06/12/21 Blood Culture - Final, Complete No growth 06/12/21 Urine Culture - Final, Complete Escherichia coli Klebsiella pneumoniae Lactobacillus species Home Meds Active Klor-Con 10 (Potassium Chloride) 10 Meq Tablet.er 10 Meq PO BID Lisinopril 40 Mg Tablet 40 Mg PO DAILY Diltiazem 24Hr ER (Diltiazem HCl) 120 Mg Cap.er.24h 120 Mg PO DAILY Loratadine 10 Mg Tablet 10 Mg PO HS Calcium (Calcium Carbonate) 500 Mg Tablet 1,500 Mg PO HS TAKES 3 (500MG) TABS Vitamin B-12 (Cyanocobalamin (Vitamin B-12)) 1,000 Mcg Tablet 1,000 Mcg PO DAILY Vitamin D3 (Cholecalciferol (Vitamin D3)) 25 Mcg Tablet 25 Mcg PO DAILY Cranberry (Cranberry Extract) 250 Mg Capsule 500 Mg PO DAILY Folic Acid 1 Mg Tablet 1 Mg PO DAILY Xarelto (Rivaroxaban) 20 Mg Tablet 20 Mg PO 1700 Metformin HCl 1,000 Mg Tablet 1,000 Mg PO BID WITH MEALS Hydralazine HCl 50 Mg Tablet 50 Mg PO TID Pantoprazole Sodium 40 Mg Tablet.dr 40 Mg PO DAILY Furosemide 40 Mg Tablet 40 Mg PO DAILY Divalproex Sodium 250 Mg Tablet.dr 250 Mg PO BID Oxybutynin Chloride 5 Mg Tablet 5 Mg PO BID Atorvastatin Calcium 20 Mg Tablet 20 Mg PO HS Atenolol 50 Mg Tablet 50 Mg PO BID Reported Amlodipine Besylate 10 Mg Tablet 10 Mg PO DAILY Levocetirizine Dihydrochloride 5 Mg Tablet 5 Mg PO HS Losartan Potassium 100 Mg Tablet 100 Mg PO DAILY Skilled NF Admit to: [facility], [place] Certification (SNF) I certify that SNF services are required to be given on an inpatient basis because of the above named patient's need for custodial care on a continuing basis for the conditions(s) for which he/she was receiving inpatient hospital services prior to his/her transfer to the [facility]. Fdc Facility Order: Nursing Services, Instructor Psychiatric Aide-Evaluate & Treat, Physical Therapy-Evaluate & Treat, Speech Language-Evaluate & Treat Oxygen Delivery Method: Nasal Cannula Oxygen Flow Rate L/min (Range): 05/02 Discharge Diet: ADA Diet Daily Activity as Tolerated: Yes Resuscitation Status: Do Not Resuscitate Ayden Rodriguez Jun 26, 2021 12:54 Discharge Physical Exam General: Alert, No Acute Distress Lungs: Clear to Auscultation, Normal Air Movement Heart: Other (irregularly irregular) Abdomen: Normal Bowel Sounds, Soft Extremities: Other (trace edema, ttp ) Neuro: Other (alert, oriented to location only, slow speech with long delay and sometimes no answer to some questions, sitting in chair) Problems/Diagonsis (1) Altered mental status Status: Acute Assessment & Plan: Improving at d/c, though still with slow speech and some confusion. Suspect secondary to COVID19 infection, urinary tract infection. CT head on admit and again 06/25 without acute findings other than sinus mucosal thickening. Qualifiers: Qualified Codes: R40.0 - Somnolence (2) Diabetes mellitus Status: Acute Assessment & Plan: Resume home metformin. Qualifiers: (3) Acute encephalopathy Status: Acute (4) Paroxysmal atrial fibrillation Status: Chronic Assessment & Plan: Cardiology consulted while inpatient, medications adjusted for blood pressure, heart rate okay, continued on anticoagulation. (5) Aortic valve sclerosis (6) Malignant hypertension Assessment & Plan: BP meds adjusted while inpatient per Cardiology. See d/c meds. (7) Mixed hyperlipidemia (8) Urinary tract infection Status: Resolved Assessment & Plan: E coli, treated with ceftriaxone for 5 day course. (9) COVID-19 virus infection Status: Acute Assessment & Plan: Remained stable on 2-3 lpm supplemental oxygen throughout stay (10) Debility Status: Acute Assessment & Plan: Per family report, patient was previously ambulatory at home, note of clinic chart note from 06/09 that reported patient fall, was seen at [place] and had head CT okay, but continued to be minimally mobile since that time. Originally somnolent here, but not speaking although slowly, requiring marked assistance, transferring to SNF for continued therapy. (11) Mass of left adrenal gland Status: Acute Assessment & Plan: Unknown chronicity, depending on goals of care and status at custodial, further work-up may be needed. (12) Status post fall Status: Acute Assessment & Plan: Hematoma on scalp and bilateral ecchymoses around eyes, CT head without fracture, CT spine without fracture. Pelvis xray okay. AYDEN RODRIGUEZ MD Jun 26, 2021 12:59
[2021-06-26 16:40] VITALS: BP 104/84
== END 2021-06-26 16:40 | DRG 177 ==
LOC: EDUNIT# 14:07 → ER 14:15 → 4TH 16:28
PROVIDERS: ADMIT Internal Medicine; ATTEND Family Medicine
PROC: 8E0ZXY6 Isolation (ICD-10-PCS; principal; 2021-06-12)
DX: U07.1 COVID-19 (principal); J12.82 Pneumonia due to coronavirus disease 2019; N39.0 Urinary tract infection, site not specified; G93.40 Encephalopathy, unspecified; G20 Parkinson's disease; E11.9 Type 2 diabetes mellitus without complications; I12.9 Hypertensive chronic kidney disease with stage 1 through stage 4 chronic kidney disease, or unspecified chronic kidney disease; E11.22 Type 2 diabetes mellitus with diabetic chronic kidney disease; Z66 Do not resuscitate; N18.9 Chronic kidney disease, unspecified; Z79.84 Long term (current) use of oral hypoglycemic drugs; E11.40 Type 2 diabetes mellitus with diabetic neuropathy, unspecified; F03.90 Unspecified dementia, unspecified severity, without behavioral disturbance, psychotic disturbance, mood disturbance, and anxiety; I48.0 Paroxysmal atrial fibrillation; G40.909 Epilepsy, unspecified, not intractable, without status epilepticus; R01.1 Cardiac murmur, unspecified; E78.00 Pure hypercholesterolemia, unspecified; E78.2 Mixed hyperlipidemia; K21.9 Gastro-esophageal reflux disease without esophagitis; G47.00 Insomnia, unspecified; I35.0 Nonrheumatic aortic (valve) stenosis; E27.9 Disorder of adrenal gland, unspecified; Z91.81 History of falling; M19.91 Primary osteoarthritis, unspecified site; Z86.73 Personal history of transient ischemic attack (TIA), and cerebral infarction without residual deficits; S00.83XD Contusion of other part of head, subsequent encounter; S00.12XD Contusion of left eyelid and periocular area, subsequent encounter; S00.11XD Contusion of right eyelid and periocular area, subsequent encounter; W19.XXXD Unspecified fall, subsequent encounter; Z79.02 Long term (current) use of antithrombotics/antiplatelets; Z88.6 Allergy status to analgesic agent; Z88.5 Allergy status to narcotic agent; Z88.8 Allergy status to other drugs, medicaments and biological substances
CPT/HCPCS: 36415; 70450; 70486; 71045; 71250; 72125; 72128; 72131; 72170; 74176; 80053; 81000; 82550; 82553; 82805; 82947; 83735; 83874; 83880; 84145; 84443; 84484; 85025; 85610; 85652; 85730; 86141; 87040; 87077; 87088; 87186; 87636; 93005; 93041; 94760; 96374

== ENCOUNTER 2021-08-01 13:24 | Emergency (ER) | payer MEDICARE ==
[~2021-08-01] VITALS: Ht 162 cm; Wt 73.0 kg
[~2021-08-01 13:24] MED LIST changes: +AMLO-251 PO; +ATEN50TA PO; +ATOR20TA66 PO; +CALC-823 PO; +CHOL10004 PO; +CRAN250C2 PO; +CYAN-41 PO; +DILT-27 PO; +DIVA-74 PO; +DIVA250T2 PO; +FOLI1TAB33 PO; +FURO40TA4 PO; +HYDR-3924 PO; +LEVO5TAB12 PO; +LISI40TA9 PO; +LOSA100T57 PO; +METF-399 PO; +OXYB5TAB13 PO; +PANT40TA52 PO; +POTA-160 PO; +RIVA20TA PO
[2021-08-01] MEDS ORDERED: ASPIRIN 81 MG CHEW (CHILDREN'S ASA) PO ONE (13:30)
[2021-08-01] MEDS ORDERED: NS IV 500 ML 500 ML ONE (13:41)
--- NOTE | 2021-08-01 13:43 | ED Cardiac General ---
History of Present Illness General Chief Complaint: Cardiac/General Problems Stated Complaint: AFIB Nursing Triage Note: PT ARRIVED PER EMS, PT IS ALERT AND PLEASANTLY CONFUSED. PT IS IN A-FIB RVR 120'S-160'S. PT HAS HX A-FIB. PT HAS SL IN R HAND #24 BY EMS. PT YELLS OUT VERBALLY AT TIMES.DENIES C/P. Source: EMS Exam Limitations: no limitations History of Present Illness Date Seen by Provider: Aug 01, 2021 Time Seen by Provider: 13:39 Initial Comments To ER by [facility] from [facility] with reports of high heart rate in the 130s. She has a history of paroxysmal atrial fibrillation managed with Xarelto and Cardizem CD 120, aortic sclerosis, h ypertension managed with lisinopril and atenolol 50 mg twice daily, hyperlipidemia. She was admitted for COVID in May of this year. She is DO NOT RESUSCITATE status. Timing/Duration: 4-6 hours, changing over time Severity: moderate Location: central Activities at Onset: none NTG SL ORGANIZATIONAL DEVELOPMENT MANAGER: No ASA po ORGANIZATIONAL DEVELOPMENT MANAGER: No Associated Systoms: Denies Symptoms Allergies and Home Medications Allergies Coded Allergies: codeine (Verified Allergy, Unknown, 08/06/06) iodine (Verified Allergy, Unknown, 08/22/07) meloxicam (Verified Allergy, Unknown, 08/22/07) Patient Home Medication List Home Medication List Reviewed: Yes Atenolol (Atenolol) 50 Mg Tablet, 50 MG PO BID Prescribed by: AYDEN ANDREWS on 06/26/21 1254 Atorvastatin Calcium (Atorvastatin Calcium) 20 Mg Tablet, 20 MG PO HS Prescribed by: AYDEN ANDREWS on 06/26/21 1254 Calcium Carbonate (Calcium) 500 Mg Tablet, 1,500 MG PO HS Prescribed by: AYDEN ANDREWS on 06/26/21 1254 Cefuroxime Axetil (Cefuroxime) 250 Mg Tablet, 250 MG PO BID Prescribed by: JENNIFER BENTLEY on 08/01/21 1457 Cholecalciferol (Vitamin D3) (Vitamin D3) 25 Mcg Tablet, 25 MCG PO DAILY Prescribed by: AYDEN ANDREWS on 06/26/21 1254 Cranberry Extract (Cranberry) 250 Mg Capsule, 500 MG PO DAILY Prescribed by: AYDEN ANDREWS on 06/26/21 1254 Cyanocobalamin (Vitamin B-12) (Vitamin B-12) 1,000 Mcg Tablet, 1,000 MCG PO DAILY Prescribed by: AYDEN ANDREWS on 06/26/21 1254 Diltiazem HCl (Diltiazem 24Hr ER) 120 Mg Cap.er.24h, 120 MG PO DAILY Prescribed by: AYDEN ANDREWS on 06/26/21 1254 Divalproex Sodium (Divalproex Sodium) 250 Mg Tablet.dr, 250 MG PO BID Prescribed by: AYDEN ANDREWS on 06/26/21 1254 Folic Acid (Folic Acid) 1 Mg Tablet, 1 MG PO DAILY Prescribed by: AYDEN ANDREWS on 06/26/21 1254 Furosemide (Furosemide) 40 Mg Tablet, 40 MG PO DAILY Prescribed by: AYDEN ANDREWS on 06/26/21 1254 Hydralazine HCl (Hydralazine HCl) 50 Mg Tablet, 50 MG PO TID Prescribed by: AYDEN ANDREWS on 06/26/21 1254 Lisinopril (Lisinopril) 40 Mg Tablet, 40 MG PO DAILY Prescribed by: AYDEN ANDREWS on 06/26/21 1254 Loratadine (Loratadine) 10 Mg Tablet, 10 MG PO HS Prescribed by: AYDEN ANDREWS on 06/26/21 1254 Magnesium Oxide (Magnesium) 400 Mg Tablet, 400 MG PO BID Prescribed by: JENNIFER BENTLEY on 08/01/21 1457 Metformin HCl (Metformin HCl) 1,000 Mg Tablet, 1,000 MG PO BID WITH MEALS Prescribed by: AYDEN ANDREWS on 06/26/21 1254 Oxybutynin Chloride (Oxybutynin Chloride) 5 Mg Tablet, 5 MG PO BID Prescribed by: AYDEN ANDREWS on 06/26/21 1254 Pantoprazole Sodium (Pantoprazole Sodium) 40 Mg Tablet.dr, 40 MG PO DAILY Prescribed by: AYDNE ANDREWS on 06/26/21 1254 Potassium Chloride (Klor-Con 10) 10 Meq Tablet.er, 10 MEQ PO BID Prescribed by: AYDEN ANDREWS on 06/26/21 1254 Rivaroxaban (Xarelto) 20 Mg Tablet, 20 MG PO 1700 Prescribed by: AYDEN ANDREWS on 06/26/21 1254 Review of Systems Review of Systems Constitutional: see HPI EENTM: No Symptoms Reported Respiratory: No Symptoms Reported Cardiovascular: No Symptoms Reported; Denies Chest Pain Gastrointestinal: No Symptoms Reported Genitourinary: No Symptoms Reported Musculoskeletal: no symptoms reported Skin: no symptoms reported Psychiatric/Neurological: No Symptoms Reported Endocrine: No Symptoms Reported Hematologic/Lymphatic: No Symptoms Reported Past Pulygkn-Feilpe-Ufboeu Hx Patient Social History Tobacco Use?: No Substance use?: No Alcohol Use?: No Pt feels they are or have been: No Immunizations Up To Date First/Initial COVID19 Vaccinat: 2020 Second COVID19 Vaccination Rigoberto: 2020 Past Medical History Surgery/Hospitalization HX: A-FIB, HTN,DEMENTIA Surgeries: Yes Appendectomy, Gallbladder, Hysterectomy, Oophorectomy, Tonsillectomy Respiratory: No Cardiac: Yes Atrial Fibrillation, Hypertension Neurological: Yes (POOR MEMORY) Dementia, Seizure Disorder, TIA Reproductive Disorders: 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, Menopausal Genitourinary: Yes (CHRONIC RENAL INSUFFICIENCY) Bladder Infection, Kidney Stones Gastrointestinal: Yes Gastroesophageal Reflux Musculoskeletal: Yes (POOR AMBULATION--USES WALKER) Arthritis Endocrine: Yes Diabetes, Non-Insulin dep HEENT: Yes Cataract Cancer: No Psychosocial: No Integumentary: No Blood Disorders: No Adverse Reaction/Blood Tranf: No Family Medical History Heart disease Kidney disease Physical Exam Vital Signs Vital Signs - First Documented 08/01/21 08/01/21 13:25 13:26 Temp 36.2 Pulse 133 Resp 20 B/P (MAP) 92/69 (77) Pulse Ox 97 O2 Delivery Nasal Cannula O2 Flow Rate 2.00 Capillary Refill : Less Than 3 Seconds Height, Weight, BMI Height: 5'4.00" Weight: 151lbs. oz. [id number]; 27.00 BMI Method: General Appearance: No Apparent Distress, WD/WN, Other (Does not know the year, she does know that she is at the hospital. She is screaming "I do not like needles!" During triage and initial evaluation.) Neck: Full Range of Motion, Normal Inspection Respiratory: No Accessory Muscle Use, No Respiratory Distress Cardiovascular: Normal Peripheral Pulses, Irregularly Irregular, Tachycardia (HR 120-135 a-fib) Gastrointestinal: Normal Bowel Sounds, Non Tender, Soft Extremity: Normal Capillary Refill, Normal Inspection Neurologic/Psychiatric: Alert, Oriented x3 Skin: Normal Color, Warm/Dry Progress/Results/Core Measures Results/Orders Lab Results Laboratory Tests Test 08/01/21 13:35 08/01/21 13:59 Range/Units White Blood Count 7.4 4.3-11.0 10^3/uL Red Blood Count 3.69 L 3.80-5.11 10^6/uL Hemoglobin 11.0 L 11.5-16.0 g/dL Hematocrit 35 35-52 % Mean Corpuscular Volume 96 80-99 fL Mean Corpuscular Hemoglobin 30 25-34 pg Mean Corpuscular Hemoglobin Concent 31 L 32-36 g/dL Red Cell Distribution Width 17.3 H 10.0-14.5 % Platelet Count 227 130-400 10^3/uL Mean Platelet Volume 10.9 9.0-12.2 fL Immature Granulocyte % (Auto) 0 % Neutrophils (%) (Auto) 49 42-75 % Lymphocytes (%) (Auto) 42 12-44 % Monocytes (%) (Auto) 6 0-12 % Eosinophils (%) (Auto) 2 0-10 % Basophils (%) (Auto) 1 0-10 % Neutrophils # (Auto) 3.6 1.8-7.8 10^3/uL Lymphocytes # (Auto) 3.1 1.0-4.0 10^3/uL Monocytes # (Auto) 0.5 0.0-1.0 10^3/uL Eosinophils # (Auto) 0.1 0.0-0.3 10^3/uL Basophils # (Auto) 0.1 0.0-0.1 10^3/uL Immature Granulocyte # (Auto) 0.0 0.0-0.1 10^3/uL Prothrombin Time 21.2 H 12.2-14.7 SEC INR Comment 1.8 H 0.8-1.4 Activated Partial Thromboplast Time 35 24-35 SEC Sodium Level 142 135-145 MMOL/L Potassium Level 5.4 H 3.6-5.0 MMOL/L Chloride Level 103 98-107 MMOL/L Carbon Dioxide Level 25 21-32 MMOL/L Anion Gap 14 5-14 MMOL/L Blood Urea Nitrogen 40 H 7-18 MG/DL Creatinine 1.34 H 0.60-1.30 MG/DL Estimat Glomerular Filtration Rate 42 BUN/Creatinine Ratio 30 Glucose Level 129 H 70-105 MG/DL Calcium Level 9.3 8.5-10.1 MG/DL Corrected Calcium 9.9 8.5-10.1 MG/DL Magnesium Level 1.4 L 1.6-2.4 MG/DL Total Bilirubin 0.3 0.1-1.0 MG/DL Aspartate Amino Transf (AST/SGOT) 23 5-34 U/L Alanine Aminotransferase (ALT/SGPT) 33 0-55 U/L Alkaline Phosphatase 46 40-136 U/L Myoglobin 47.9 10.0-92.0 NG/ML Troponin I < 0.028 <0.028 NG/ML B-Type Natriuretic Peptide 288.8 H <100.0 PG/ML Total Protein 6.3 L 6.4-8.2 GM/DL Albumin 3.3 3.2-4.5 GM/DL Urine Color YELLOW Urine Clarity CLOUDY Urine pH 6.5 5-9 Urine Specific [place] 1.015 L 1.016-1.022 Urine Protein 1+ H NEGATIVE Urine Glucose (UA) NEGATIVE NEGATIVE Urine Ketones NEGATIVE NEGATIVE Urine Nitrite NEGATIVE NEGATIVE Urine Bilirubin NEGATIVE NEGATIVE Urine Urobilinogen 0.2 < = 1.0 MG/DL Urine Leukocyte Esterase 3+ H NEGATIVE Urine RBC (Auto) TRACE-I H NEGATIVE Urine RBC RARE /HPF Urine WBC 25-50 H /HPF Urine Squamous Epithelial Cells 2-5 /HPF Urine Crystals PRESENT H /LPF Urine Amorphous Sediment MOD BONY URATES H /LPF Urine Bacteria LARGE H /HPF Urine Casts NONE /LPF Urine Mucus NEGATIVE /LPF Urine Culture Indicated YES My Orders Orders - JENNIFER BENTLEY VOCATIONAL ED INSTRUCTOR Cbc With Automated Diff (08/01/21 13:26) Magnesium (08/01/21 13:26) Chest 1 View, Ap/Pa Only (08/01/21 13:26) Ekg Tracing (08/01/21 13:26) Comprehensive Metabolic Panel (08/01/21 13:26) Myoglobin Serum (08/01/21 13:26) Protime With Inr (08/01/21 13:26) Partial Thromboplastin Time (08/01/21 13:26) O2 (08/01/21 13:26) Monitor-Rhythm Ecg Trace Only (08/01/21 13:26) Lipid Panel (08/02/21 06:00) Ed Iv/Invasive Line Start (08/01/21 13:26) Bnp Daw[place] (08/01/21 13:26) Troponin I Betty (08/01/21 13:26) Aspirin Chewable Tablet (Baby Aspirin Ch (08/01/21 13:30) Ua Culture If Indicated (08/01/21 13:37) Diltiazem Drip Pre-Mix (Cardizem Drip Pr (08/01/21 13:45) Ns Iv 500 Ml (Sodium Chloride 0.9%) (08/01/21 13:41) Ns Iv 500 Ml (Sodium Chloride 0.9%) (08/01/21 13:45) Diltiazem Cd 24 Hr Capsule (Cardizem Cd (08/01/21 14:00) Lactated Ringers (Lr 1000 Ml Iv Solution (08/01/21 14:30) Urine Culture (08/01/21 13:59) Ceftriaxone 1 Gm Pre-Mix (Rocephin 1 Gm (08/01/21 14:30) Magnesium 1 Gm/100 Ml Ivpb (Magnesium Espinoza (08/01/21 14:30) Magnesium Oxide Tablet (Mag Ox Tablet) (08/01/21 15:00) Metoprolol Tartrate Injection (Lopressor (08/01/21 16:15) Medications Given in ED Current Medications Medications Dose Ordered Sig/Porter Route Start Time Stop Time Status Last Admin Dose Admin Aspirin 324 mg ONCE ONCE PO 08/01/21 13:30 08/01/21 13:31 DC 08/01/21 13:42 324 MG Ceftriaxone Sodium/Dextrose 50 ml @ 100 mls/hr ONCE ONCE IV 08/01/21 14:30 08/01/21 14:59 DC 08/01/21 14:55 100 MLS/HR Magnesium Oxide 400 mg ONCE ONCE PO 08/01/21 15:00 08/01/21 15:01 DC 08/01/21 14:56 400 MG Metoprolol Tartrate 5 mg ONCE ONCE IV 08/01/21 16:15 08/01/21 16:16 DC 08/01/21 16:18 5 MG Sodium Chloride 500 ml @ ud STK-MED ONCE .ROUTE 08/01/21 13:41 08/01/21 13:43 DC 08/01/21 13:43 500 MLS/HR Vital Signs/I&O 08/01/21 08/01/21 13:25 13:26 Temp 36.2 Pulse 133 Resp 20 B/P (MAP) 92/69 (77) Pulse Ox 97 97 O2 Delivery Nasal Cannula Nasal Cannula O2 Flow Rate 2.00 2.00 Blood Pressure Mean: 77 Departure Communication (Admissions) 1450-she has a 24-gauge to the dorsal right hand IV started by EMS. She refuses further IV attempts. This however is flowing fine with the liter of LR currently. She does have a mild acute kidney injury as well as a urinary tract infection. We will give a gram of Rocephin for the UTI. Her magnesium is little low but due to incompatibility with the LR and refusal of having any additional IV started will just replace the magnesium p.o. At this time her rate is controlled though still A. fib rate of 93. Cardizem drip has been turned off she was given an extra Cardizem CD 120 mg. [facility]ipate [facility] 1626-Cardizem gtt off x >1 hour. HR remains a-fib but rate of 89-115. Just gave 5mg lopressor iv. Will dc back to [facility]. Received 1.5l fluid bolus. NAME: KHARI FUNK [facility] REC#: [id number] PT STATUS: REG ER : 1950 PHYSICIAN: JENNIFER BENTLEY APRN ADMIT DATE: 08/01/21/ER Draft Date of Exam:08/01/21 CHEST 1 VIEW, AP/PA ONLY INDICATION: Atrial fibrillation, confusion. COMPARISON: 06/12/2021. FINDINGS: Single view of the chest demonstrates slight cardiac enlargement. Lungs are clear. There is no pneumothorax or effusion. Osseous structures are normal. IMPRESSION: No acute cardiopulmonary findings. Dictated on workstation # [id number] Dict: 08/01/21 1356 Trans: 08/01/21 1402 [id number] Interpreted by: AMY MERRITT Electronically signed by: Impression Primary Impression: Atrial fibrillation with RVR Additional Impressions: RACHEL (acute kidney injury) UTI (urinary tract infection) Disposition: 01 HOME, SELF-CARE Condition: Stable Departure-Patient Inst. Decision time for Depature: 14:56 Referrals: ELIO SMITH DO (PCP/Family) Primary Care Physician Patient Instructions: Atrial Fibrillation and Atrial Flutter ED, Dehydration, Adult (DC) Add. Discharge Instructions: All discharge instructions reviewed with patient and/or family. Voiced understanding. Scripts Magnesium Oxide (Magnesium) 400 Mg Tablet 400 MG PO BID, #14 TAB Prov: JENNIFER BENTLEY APRN 08/01/21 Cefuroxime Axetil (Cefuroxime) 250 Mg Tablet 250 MG PO BID, #10 TAB Prov: JENNIFER BENTLEY APRN 08/01/21 JENNIFER BENTLEY APRN Aug 01, 2021 13:43
[2021-08-01 13:44] LABS: BASOPHILS # (AUTO) 0.1 10^3/uL (0.0-0.1); BASOPHILS % (AUTO) 1 % (0-10); EOSINOPHILS # (AUTO) 0.1 10^3/uL (0.0-0.3); EOSINOPHILS % (AUTO) 2 % (0-10); HEMATOCRIT 35 % (35-52); LYMPHOCYTES # (AUTO) 3.1 10^3/uL (1.0-4.0); LYMPHOCYTES % (AUTO) 42 % (12-44); MEAN CORPUSCULAR HEMOGLOBIN 30 pg (25-34); MEAN CORPUSCULAR HGB CONC 31 g/dL (32-36); MEAN CORPUSCULAR VOLUME 96 fL (80-99); MEAN PLATELET VOLUME 10.9 fL (9.0-12.2); MONOCYTES # (AUTO) 0.5 10^3/uL (0.0-1.0); MONOCYTES % (AUTO) 6 % (0-12); NEUTROPHILS # (AUTO) 3.6 10^3/uL (1.8-7.8); NEUTROPHILS % (AUTO) 49 % (42-75); PLATELET COUNT 227 10^3/uL (130-400); WHITE BLOOD COUNT 7.4 10^3/uL (4.3-11.0)
[2021-08-01] MEDS ORDERED: dilTIAZem DRIP PRE-MIX 125 ML IV SCH (13:45)
[2021-08-01] MEDS ORDERED: NS IV 500 ML 500 ML IV SCH (13:45)
[2021-08-01] MEDS ORDERED: dilTIAZem120 MG (CARDIZEM CD) CAP PO SCH (14:00)
--- NOTE | 2021-08-01 14:02 | Diagnostic Imaging Report ---
INDICATION: Atrial fibrillation, confusion. COMPARISON: 06/12/2021. FINDINGS: Single view of the chest demonstrates slight cardiac enlargement. Lungs are clear. There is no pneumothorax or effusion. Osseous structures are normal. IMPRESSION: No acute cardiopulmonary findings. Dictated by: Dictated on workstation # [id number]
[2021-08-01 14:05] LABS: BILIRUBIN,URINE NEGATIVE (NEGATIVE); CLARITY,URINE CLOUDY; COLOR,URINE YELLOW; GLUCOSE, URINE (UA) NEGATIVE (NEGATIVE); KETONES,URINE NEGATIVE (NEGATIVE); LEUKOCYTE ESTERASE ,URINE 3+ (NEGATIVE); NITRITE,URINE NEGATIVE (NEGATIVE); PH,URINE 6.5 (5-9); PROTEIN,URINE 1+ (NEGATIVE)
[2021-08-01 14:14] LABS: ALBUMIN 3.3 GM/DL (3.2-4.5); POTASSIUM 5.4 MMOL/L (3.6-5.0)
[2021-08-01 14:15] LABS: CALCIUM 9.3 MG/DL (8.5-10.1)
[2021-08-01 14:17] LABS: TOTAL PROTEIN 6.3 GM/DL (6.4-8.2)
[2021-08-01 14:18] LABS: BILIRUBIN,TOTAL 0.3 MG/DL (0.1-1.0)
[2021-08-01 14:20] LABS: CREATININE SERUM 1.34 MG/DL (0.60-1.30)
[2021-08-01 14:24] LABS: MAGNESIUM 1.4 MG/DL (1.6-2.4)
[2021-08-01 14:25] LABS: RBC,URINE RARE /HPF
[2021-08-01 14:26] LABS: AMORPHOUS SEDIMENT,UR MOD AMOR URATES /LPF; BACTERIA,URINE LARGE /HPF; WBC,URINE 25-50 /HPF
[2021-08-01 14:26] LABS: INR 1.8 (0.8-1.4); PROTHROMBIN TIME PATIENT 21.2 SEC (12.2-14.7)
[2021-08-01] MEDS ORDERED: LACTATED RINGERS 1,000 ML IV SCH (14:30)
[2021-08-01] MEDS ORDERED: cefTRIAXone 1 GM PRE-MIX 50 ML IV ONE (14:30)
[2021-08-01] MEDS: MAGNESIUM 1 GM/100 ML IVPB 100 ML IV SCH ×2 (14:49→16:00)
[2021-08-01] MEDS ORDERED: MAGN400T39 PO (14:57)
[2021-08-01] MEDS ORDERED: CEFU250T80 PO (14:57)
[2021-08-01] MEDS ORDERED: MAGNESIUM OXIDE (MAG-OX)400 MG TAB PO ONE (15:00)
[2021-08-01] MEDS ORDERED: meTOprolol 5 MG/5 ML (LOPRESSOR) VIAL IV ONE (16:15)
[2021-08-01 16:46] VITALS: BP 118/73
== END 2021-08-01 16:48 | disposition home or self-care (01) ==
LOC: EDUNIT# 13:24 → ER 13:25
DX: I48.20 Chronic atrial fibrillation, unspecified (principal); N17.9 Acute kidney failure, unspecified; N39.0 Urinary tract infection, site not specified; R00.0 Tachycardia, unspecified; I10 Essential (primary) hypertension; Z79.01 Long term (current) use of anticoagulants
CPT/HCPCS: 36415; 51701; 71045; 80053; 81000; 83735; 83874; 83880; 84484; 85025; 85610; 85730; 87077; 87088; 93005; 93041